=== PATIENT | female | born 1975 | race Caucasian/White ===

== ENCOUNTER 2016-07-31 01:37 | Emergency (ER) | payer OTHER ==
[2016-07-31 01:48] VITALS: TEMP 97.9
[2016-07-31] MEDS ORDERED: HYDROmorphone 1 MG/ML 1 ML SYRINGE IM STA (01:54)
--- NOTE | 2016-07-31 02:03 | ED ---
Lower Extremity Injury HPI - General Chief Complaint: Extremity Injury, Lower Stated Complaint: Ankle injury Time Seen by Provider: 07/31/16 01:52 Source: patient, RN notes reviewed Mode of arrival: wheelchair Limitations: no limitations - History of Present Illness Initial Comments: 41-year-old female presents emergency Department chief complaint right ankle and leg pain. Patient states that she stepped out of her truck states that she slipped on ice. Patient has had severe right lower leg pain. This happened approximately one hour ago. Patient denies any other muscle skeletal injury and denies head injury, and denies LOC. Patient states that she is not taking anything for the pain. She states that she cannot tolerate the pain. Denies any foot pain. Denies any paresthesias. - Related Data Previous Rx's Medication Instructions Recorded HYDROcodone/APAP 7.5-325MG [Fletcher 1 tab PO Q6HR PRN #20 tab 07/31/16 7.5-325] Allergies Allergy/AdvReac Type Severity Reaction Status Date / Time No Known Allergies Allergy Verified 07/31/16 01:48 Review of Systems ROS Statement: Those systems with pertinent positive or pertinent negative responses have been documented in the HPI. ROS Other: All systems not noted in ROS Statement are negative. Past Medical History Past Medical History: No Reported History History of Any Multi-Drug Resistant Organisms: None Reported Past Surgical History: Tubal Ligation Past Psychological History: No Psychological Hx Reported Smoking Status: Current every day smoker Past Alcohol Use History: Occasional Past Drug Use History: None Reported General Exam General appearance: alert, in no apparent distress Respiratory exam: Present: normal lung sounds bilaterally. Absent: respiratory distress, wheezes, rales, rhonchi, stridor Cardiovascular Exam: Present: regular rate, normal rhythm, normal heart sounds. Absent: systolic murmur, diastolic murmur, rubs, gallop, clicks Extremities exam: Present: other (Right leg there is swelling noted in the distal third of the tib-fib region,, swelling noted to the right ankle with severe tenderness to the medial and lateral malleolus there is no foot tenderness) Back exam: Present: full ROM. Absent: tenderness Skin exam: Present: warm, dry, intact, normal color. Absent: rash Course Vital Signs 07/31/16 01:44 Temperature 97.9 F Pulse Rate 86 Respiratory 18 Rate Blood Pressure 112/64 O2 Sat by Pulse 98 Oximetry Procedures - Orthopedic Splinting/Casting Injury #1 Side: right Lower Extremity Injury Location: lower leg, ankle Lower Extremity Immobilizer: posterior splint (Short leg neurovascular intact before and after this procedure with sugar tong splinting) Other Orthopedic Equipment: crutches Disposition Clinical Impression: Right fibular fracture Disposition: HOME SELF-CARE Condition: Stable Instructions: Leg Fracture (ED) Additional Instructions: Please return to the Emergency Department if symptoms worsen or any other concerns. Prescriptions: HYDROcodone/APAP 7.5-325MG [Fletcher 7.5-325] 1 tab PO Q6HR PRN #20 tab PRN Reason: Pain Referrals: Lelsie Haji MD [Primary Care Provider] - 1-2 days Jake Thomas MD [Medical Doctor] - 1-2 days Time of Disposition: 02:48
--- NOTE | 2016-07-31 02:28 | XR ---
EXAMINATION TYPE: XR tibia fibula RT DATE OF EXAM: 07/31/2016 2:06 AM COMPARISON: NONE HISTORY: Leg pain after fall TECHNIQUE: 2 views FINDINGS: There is a nondisplaced oblique fracture of the distal fibula. The tibia appears intact. IMPRESSION: Nondisplaced spiral fracture of the distal fibula.
--- NOTE | 2016-07-31 02:30 | XR ---
EXAMINATION TYPE: XR ankle complete RT DATE OF EXAM: 07/31/2016 2:05 AM COMPARISON: NONE HISTORY: Ankle pain TECHNIQUE: 3 views FINDINGS: There is a nondisplaced spiral fracture of the distal fibula. Ankle mortise is not widened. There is soft tissue swelling. There is no dislocation. There is a small plantar calcaneal spur. IMPRESSION: Spiral fracture distal fibula with no displacement.
[2016-07-31] MEDS ORDERED: HYDROcodone/APAP 5-325MG 1 EACH TAB PO STA (02:59)
[2016-07-31 03:18] VITALS: BP 115/56; PULSE 101; RESP 20
== END 2016-07-31 03:18 | disposition home or self-care (01) ==
LOC: EC 01:37
DX: S82.491A Other fracture of shaft of right fibula, initial encounter for closed fracture (principal); W00.2XXA Other fall from one level to another due to ice and snow, initial encounter; F17.200 Nicotine dependence, unspecified, uncomplicated
CPT/HCPCS: 99283; 96372; 29515; 73590; 73610; J1170

== ENCOUNTER → 2016-08-01 | Outpatient (CLI) | payer OTHER ==
[2016-08-01 14:00] LABS: Appearance,Urine Cloudy (Clear); Bacteria,Urine Rare /hpf; Bilirubin,Urine Negative (Negative); Glucose,Urine (UA) Negative (Negative); Ketones,Urine Negative (Negative); Leukocyte Esterase,Urine Trace (Negative); Mucus,Urine Rare /hpf; Nitrite,Urine Negative (Negative); PH, Urine 5.5 (5.0-8.0); Particle Count 6174; Protein,Urine Negative (Negative); RBC,Urine 1 /hpf (0-5); Specific Gravity,Urine 1.014 (1.001-1.035); Squamous Epithelial Cell,Urine 12 /hpf (0-4); UA Billing (MACRO vs. MICRO) MICRO; Urobilinogen,Urine <2.0 mg/dL (<2.0); WBC,Urine 2 /hpf (0-5)
[2016-08-01 14:01] LABS: Basophils # (A) 0.1 k/uL (0-0.2); Basophils % (A) 1 %; CH 32.9; CHCM 34.9; Eosinophils # (A) 0.1 k/uL (0-0.7); Eosinophils % (A) 1 %; HCT 44.8 % (34.0-46.0); HDW 2.55; HGB 15.2 gm/dL (11.4-16.0); Luc # (Auto) 0.13; Luc % (Auto) 1; Lymphocytes % (A) 15 %; MCHC 33.8 g/dL (31.0-37.0); MCV 94.7 fL (80.0-100.0); Mean Platelet Volume 8.3; Monocytes # (A) 0.5 k/uL (0-1.0); Monocytes % (A) 4 %; Neutrophils # (A) 10.6 k/uL (1.3-7.7); Neutrophils % (A) 79 %; RBC 4.74 m/uL (3.80-5.40); RDW 12.4 % (11.5-15.5); WBC 13.4 k/uL (3.8-10.6); WBC (Perox) 13.47
[2016-08-01 14:05] LABS: Partial Thromboplastin Time 25.7 sec (22.0-30.0); Prothrombin Time 9.8 sec (9.0-12.0)
[2016-08-01 14:19] LABS: Anion Gap 11 mmol/L; Blood Urea Nitrogen 15 mg/dL (7-17); Calcium 9.5 mg/dL (8.4-10.2); Carbon Dioxide 23 mmol/L (22-30); Chloride 104 mmol/L (98-107); Glucose 87 mg/dL (74-99); Non-African American GFR(MDRD) >60 (>60 ml/min/1.73 sqM); Potassium 4.5 mmol/L (3.5-5.1); Sodium 138 mmol/L (137-145)
== END | disposition home or self-care (01) ==
LOC: LABPAT 13:11
PROVIDERS: ATTEND Orthopaedic Surgery Orthopaedic Surgery of the Spine
DX: Z01.818 Encounter for other preprocedural examination (principal); Z01.810 Encounter for preprocedural cardiovascular examination
CPT/HCPCS: 80048; 81001; 85025; 85610; 85730

== ENCOUNTER 2016-08-03 07:09 | Day surgery (SDC) | payer OTHER ==
[2016-08-02 08:44] VITALS: BMI 22.9
[~2016-08-03 07:09] MED LIST: BACITRACIN 50,000 UNIT, POLYMYXIN B 500,000 UNIT in SODIUM CHLORIDE 0.9% IRRIGATIO 1,00... IRRIGATION ONE; DEXAMETHASONE SOD PHOSPHATE 10 MG/ML 1 ML VIAL IV ONE; HYDROmorphone 1 MG/ML 1 ML SYRINGE IVP PRN; LACTATED RINGERS 1,000 ML IV SCH; LIDOCAINE 1% 20 ML VIAL (10MG/ML) FOR IV START INTRADERMA PRN; SCOPOLAMINE 1.5MG/72HR PATCH TRANSDERM ONE; ceFAZolin 2 GM in SODIUM CHLORIDE 0.9% 100 ML IVPB ONE
[2016-08-03] MEDS ORDERED: ONDANSETRON 4 MG/2 ML VIAL IVP ONE (07:33)
[2016-08-03] MEDS ORDERED: HYDROmorphone (PF) 1 MG/ML ONE (08:28)
[2016-08-03] MEDS ORDERED: fentaNYL (PF) 50 MCG/ML 2 ML AMP ONE (08:28)
[2016-08-03] MEDS ORDERED: MIDAZOLAM 2 MG/2 ML VIAL ONE (08:28)
[2016-08-03] MEDS ORDERED: SUCCINYLCHOLINE CHLORIDE 100 MG/5 ML SYR IV ONE (08:28)
[2016-08-03] MEDS ORDERED: PROPOFOL 10 MG/ML 20 ML VIAL IV ONE (08:28)
[2016-08-03] MEDS ORDERED: LIDOCAINE 1% INJ 10MG/ML (20 ML MDV) ONE (08:28)
[2016-08-03] MEDS ORDERED: BUPIVACAINE (PF) 0.25% 30 ML VIAL SQ ONE ×2 (09:22→09:35)
--- NOTE | 2016-08-03 09:38 | FL ---
EXAMINATION TYPE: FL guidance operating room DATE OF EXAM: 08/03/2016 9:34 AM COMPARISON: NONE HISTORY: Right ankle fracture Fluoroscopy support supplied to the referring clinician. See dictated report from orthopedic surgery , 13 seconds fluoroscopy time supplied, four intraoperative C-arm images document the procedure
--- NOTE | 2016-08-03 09:39 | XR ---
Limited right ankle HISTORY: Fracture Intraoperative C-arm images document the procedure
[2016-08-03 09:51] VITALS: TEMP 97.6
[2016-08-03] MEDS ORDERED: HYDROcodone/APAP 5-325MG 1 EACH TAB PO PRN ×2 (09:51)
[2016-08-03] MEDS ORDERED: HYDROcodone/APAP 7.5-325MG 1 EACH TAB PO PRN (09:54)
[2016-08-03 10:01] VITALS: RESP 16
--- NOTE | 2016-08-03 10:03 | P.OP ---
Date of Procedure: 08/03/16 Preoperative Diagnosis: Right ankle fracture with comminuted fracture at distal fibula status post fall , acute traumatic Postoperative Diagnosis: Same Anesthesia: GETA Pathology: none sent Condition: stable Disposition: PACU Description of Procedure: BRIEF OPERATIVE NOTE Preoperative Diagnosis: Right distal fibula fracture, comminuted and displaced, acute traumatic status post fall Postoperative Diagnosis: Same Procedure: Open reduction internal fixation of right distal fibula fracture Use of fluoroscopic guidance Surgeon: Dr. Brock Analog Design Engineer: Keshav Herring is present throughout the entire the case persistence during positioning, dissection, exposure, visualization, and all crucial elements of the case as well as closure. Anesthesia: General anesthesia Estimated blood loss: Less than 10 mL Tourniquet time: Approximately 40 minutes Specimen: None Complications: None apparent Components implanted: Synthes small frag one third semitubular plate with 7 screws with comminution of 3.5 cortical and 40 cancellus screws Disposition: To recovery room in good stable condition. OPERATIVE INDICATIONS The patient had an acute injury 2 days ago when she slipped and fell on the ice. She had immediate pain and swelling in her right ankle. She had not had any pain or issues prior to her fall. She was evaluated and found have a comminuted distal fibula fracture with accompanying medial sided pain. There is no evidence of fracture at the medial malleolus but there was evidence of deltoid ligament injury. With the comminution and the medial and lateral pain involved I felt that her best chance of healing would be to pursue open reduction internal fixation of distal fibula. I discussed the risk of occasions alternatives and benefits of surgery in relation to her injury. I discussed the risk of bleeding risk and infection risk and need for further surgery risk of decreased loss of motion loss function malunion nonunion hardware failure nerve damage as well as, occasions with surgery were explained. I answered her questions best my ability and she elected proceed with surgical intervention. OPERATIVE SUMMARY After discussing all the risks, patient alternatives and benefits at length, the patient elected to proceed with surgical intervention, signed informed consent, and presented for their procedure. The patient was seen and examined in the preoperative holding area and the surgical site was marked. The patient was given antibiotics and brought to the operating room. The patient was sedated and intubated by anesthesia in standard fashion. The patient was positioned on to the operating room table in a supine position with a pad under her right hip. We were careful to pad any bony prominences and pressure points. We were careful to maintain the patient's cervical spine and good neutral alignment and position throughout. We used C-arm machines to establish union fluoroscopic guidance in AP and lateral positions. We were able to localize the fractures appropriately. The patient was prepped and draped in a normal standard fashion. An appropriate timeout and keystone protocol performed. We were able to proceed with the surgery. The local wound area was infiltrated with local anesthetic. An incision was made over the lateral aspect of the ankle and I dissected down to the distal fibula appropriately. The fracture was obvious and I was able to mobilize some of the fragments and elevated some of the periosteum leaving as much is intact as possible. I performed a gentle reduction techniques in order to get the fractures well aligned and use of bone clamp to get good provisional fixation. I was able to get good near-anatomic position. This was confirmed with C-arm guidance. I was then able to measure and position a one third semitubular 7 hole plate and contoured appropriately over the distal fibula and over the fracture site proximally and distally. I establish an interfragmentary screw going from anterior to posterior across fracture site and good alignment and position with good bony fixation. As able to remove the bone clamp in place the plate laterally and placed cortical screws proximally and cancellous screws distally to get excellent fixation at a near anatomic position. This was confirmed with C-arm guidance. Significant. I performed medial and lateral varus and valgus stress at the ankle after fixation was performed and there is no evidence of any widening or displacement of the syndesmosis or the ankle mortise. I do not feel we needed any further fixation. We were able to proceed with closure. Deep layers were closed with 2-0 Vicryl subcu tissues closed 2-0 Vicryl and skin was closed with 4-0 nylon. The wound was cleaned and dried and dressed with the appropriate dressing. I placed a sugar tong and posterior mold well-padded well molded splint at the right lower leg. The drapes were broken down. The patient was gently rolled back onto their hospital bed being careful to maintain their cervical spine and good neutral alignment and position. They were woken up by anesthesia, extubated, and brought to the recovery room in good stable condition. The patient will be able to be discharged from the hospital after appropriate observation due to and for appropriate postoperative care, medical management and monitoring. We will continue to follow them closely about the postoperative course. a plan see her back in the office in approximately 1 week' s time or sooner if she is having problems.
[2016-08-03] MEDS ORDERED: HYDROcodone/APAP 7.5-325MG 1 EACH TAB PO ONE (11:06)
[2016-08-03 12:08] VITALS: BP 118/74; PULSE 75
[2016-08-03] MEDS ORDERED: ceFAZolin 2 GM in SODIUM CHLORIDE 0.9% 100 ML IVPB SCH (16:00)
[2016-08-03] MEDS ORDERED: valACYclovir 500 MG TAB PO SCH (21:00)
[2016-08-03] MEDS ORDERED: PROPRANOLOL LA 80 MG CAP.SA.24H PO SCH (21:00)
[2016-08-04] MEDS ORDERED: ATORVASTATIN 80 MG TAB PO SCH (09:00)
== END 2016-08-03 12:14 | disposition home or self-care (01) ==
LOC: OR 07:09 → EDSTATUS 08:30 → OR 12:14
PROVIDERS: ATTEND Orthopaedic Surgery Orthopaedic Surgery of the Spine
DX: S82.831A Other fracture of upper and lower end of right fibula, initial encounter for closed fracture (principal); W00.0XXA Fall on same level due to ice and snow, initial encounter; G43.909 Migraine, unspecified, not intractable, without status migrainosus; Z79.891 Long term (current) use of opiate analgesic; Z79.899 Other long term (current) drug therapy; F17.200 Nicotine dependence, unspecified, uncomplicated
CPT/HCPCS: 81025; 73600; 27792; C1713; J2250; J1100; J0690; J2405; J2001; J3010; J1170; J0330; J2704

== ENCOUNTER → 2017-08-17 | Outpatient (CLI) | payer OTHER ==
[2017-08-17 10:16] LABS: Appearance,Urine Cloudy (Clear); Bilirubin,Urine Negative (Negative); Blood,Urine Negative (Negative); Color,Urine Yellow; Glucose,Urine (UA) Negative (Negative); Ketones,Urine Negative (Negative); Leukocyte Esterase,Urine Negative (Negative); Mucus,Urine Rare /hpf; Nitrite,Urine Negative (Negative); PH, Urine 6.5 (5.0-8.0); Protein,Urine Negative (Negative); Specific Gravity,Urine 1.014 (1.001-1.035); Squamous Epithelial Cell,Urine 14 /hpf (0-4); Urobilinogen,Urine <2.0 mg/dL (<2.0)
[2017-08-17 10:42] LABS: Basophils # (A) 0.1 k/uL (0-0.2); Basophils % (A) 1 %; Eosinophils # (A) 0.1 k/uL (0-0.7); Eosinophils % (A) 1 %; HCT 45.6 % (34.0-46.0); HGB 15.5 gm/dL (11.4-16.0); Lymphocytes # (A) 2.4 k/uL (1.0-4.8); Lymphocytes % (A) 21 %; MCH 31.6 pg (25.0-35.0); MCHC 33.9 g/dL (31.0-37.0); Mean Platelet Volume 8.3; Monocytes # (A) 0.5 k/uL (0-1.0); Monocytes % (A) 4 %; Neutrophils # (A) 8.3 k/uL (1.3-7.7); Neutrophils % (A) 72 %; Platelet Count 330 k/uL (150-450); RDW 13.4 % (11.5-15.5); WBC 11.6 k/uL (3.8-10.6)
[2017-08-17 10:51] LABS: Anion Gap 9 mmol/L; Blood Urea Nitrogen 11 mg/dL (7-17); Calcium 9.9 mg/dL (8.4-10.2); Carbon Dioxide 30 mmol/L (22-30); Chloride 103 mmol/L (98-107); Glucose 83 mg/dL (74-99); Partial Thromboplastin Time 24.9 sec (22.0-30.0); Potassium 4.7 mmol/L (3.5-5.1); Prothrombin Time 9.7 sec (9.0-12.0); Sodium 142 mmol/L (137-145)
== END | disposition home or self-care (01) ==
LOC: LABPAT 09:46
PROVIDERS: ATTEND Orthopaedic Surgery Orthopaedic Surgery of the Spine
DX: Z01.812 Encounter for preprocedural laboratory examination (principal); T85.698A Other mechanical complication of other specified internal prosthetic devices, implants and grafts, initial encounter
CPT/HCPCS: 36415; 80048; 81001; 85025; 85610; 85730

== ENCOUNTER 2017-08-23 10:23 | Day surgery (SDC) | payer OTHER ==
[~2017-08-23 10:23] MED LIST changes: -HYDROmorphone 1 MG/ML 1 ML SYRINGE IVP PRN; +MIDAZOLAM 2 MG/2 ML VIAL IV PRN; +ONDANSETRON 4 MG/2 ML VIAL IVP ONE; -ceFAZolin 2 GM in SODIUM CHLORIDE 0.9% 100 ML IVPB ONE; +ceFAZolin IN SWFI 2 GM/20 ML SYRINGE IVP ONE
[2017-08-23 11:13] VITALS: RESP 16
[2017-08-23] MEDS ORDERED: LIDOCAINE 1% INJ 10MG/ML (20 ML MDV) ONE (13:20)
[2017-08-23] MEDS ORDERED: SUCCINYLCHOLINE CHLORIDE 100 MG/5 ML SYR IV ONE (13:20)
[2017-08-23] MEDS ORDERED: MIDAZOLAM 2 MG/2 ML VIAL ONE (13:20)
[2017-08-23] MEDS ORDERED: PROPOFOL 10 MG/ML 20 ML VIAL IV ONE (13:20)
[2017-08-23] MEDS ORDERED: fentaNYL (PF) 50 MCG/ML 2 ML AMP ONE (13:20)
[2017-08-23] MEDS ORDERED: HYDROcodone/APAP 5-325MG 1 EACH TAB PO PRN (13:57)
--- NOTE | 2017-08-23 14:12 | P.OP ---
Date of Procedure: 08/23/17 Preoperative Diagnosis: Irritating hardware Right ankle, deep status post open reduction internal fixation of right lateral malleolus fracture History of ankle fracture Postoperative Diagnosis: Same Anesthesia: GETA Pathology: none sent Condition: stable Disposition: PACU Description of Procedure: BRIEF OPERATIVE NOTE Preoperative Diagnosis: Irritating hardware right ankle, deep History of open reduction internal fixation right ankle fracture at the lateral malleolus Postoperative Diagnosis: Same Procedure: Removal of deep hardware right ankle lateral malleolus, fluoroscopic guidance Surgeon: Dr. Brock Custom Seamstress: Keshav Herring is present throughout the entire the case persistence during positioning, dissection, exposure, visualization, and all crucial elements of the case as well as closure. Anesthesia: General anesthesia Estimated blood loss: Less than 10 mL Tourniquet time: Approximately 40 minutes Specimen: None Complications: None apparent Components implanted: We removed a Synthes small fragment plate with screws and an interfragmentary screw Disposition: To recovery room in good stable condition. OPERATIVE INDICATIONS The patient had an acute injury several months ago when she sustained a number displaced lateral malleolus ankle fracture. She underwent open reduction internal fixation of her lateral malleolus and went on to have a good result with her ankle. However she has been having irritation over the hardware itself and some prominence of the screw heads at the lateral aspect of the lateral malleolus which was giving her troubles whenever she is wearing certain shoes and boots. She was sensitive over the hardware. Different treatment options were explained to her ranging from conservative treatment to the possibility of surgical intervention to remove the hardware. I discussed the risk of occasions alternatives and benefits of surgery in relation to her injury. I discussed the risk of bleeding risk and infection risk and need for further surgery risk of decreased loss of motion loss function malunion nonunion hardware failure nerve damage as well as, occasions with surgery were explained. I answered her questions best my ability and she elected proceed with surgical intervention. OPERATIVE SUMMARY After discussing all the risks, patient alternatives and benefits at length, the patient elected to proceed with surgical intervention, signed informed consent, and presented for their procedure. The patient was seen and examined in the preoperative holding area and the surgical site was marked. The patient was given antibiotics and brought to the operating room. The patient was sedated and intubated by anesthesia in standard fashion. The patient was positioned on to the operating room table in a supine position with a pad under her right hip. We were careful to pad any bony prominences and pressure points. We were careful to maintain the patient's cervical spine and good neutral alignment and position throughout. We used C-arm machines to establish union fluoroscopic guidance in AP and lateral positions. We were able to localize the fractures appropriately. The patient was prepped and draped in a normal standard fashion. An appropriate timeout and keystone protocol performed. We were able to proceed with the surgery. The local wound area was infiltrated with local anesthetic. An incision was made over the lateral aspect of the ankle and I dissected down to the distal fibula appropriately utilizing the prior incision and exposing the plate and screws easily. The was noted to be good bony union across the fracture site. The screws were then removed with the appropriate cdl company driver and evaluated and found to be in total. We will to dissect then up over the interfragmentary screw and the screw head was easily identified and the screws removed in total. This was confirmed with C-arm guidance. C-arm guidance was utilized to establish that the hardware had been removed and there is good evidence of solid healing at the fibula. There is no evidence of any crepitance or motion at the fracture site. I was able to stress at the ankle there is no widening of the syndesmosis or of the ankle mortise. The wound was copiously irrigated and suctioned dry. We were able to proceed with closure. Deep layers were closed with 2-0 Vicryl subcu tissues closed 2-0 Vicryl and skin was closed with 4-0 nylon. The wound was cleaned and dried and dressed with the appropriate dressing. I placed a sugar tong and posterior mold well-padded well molded splint at the right lower leg. The drapes were broken down. The patient was gently rolled back onto their hospital bed being careful to maintain their cervical spine and good neutral alignment and position. They were woken up by anesthesia, extubated, and brought to the recovery room in good stable condition. The patient will be able to be discharged from the hospital after appropriate observation due to and for appropriate postoperative care, medical management and monitoring. We will continue to follow them closely about the postoperative course. a plan see her back in the office in approximately 1 week' s time or sooner if she is having problems.
[2017-08-23] MEDS: HYDROmorphone 0.5 MG/0.5 ML SYRINGE IVP PRN ×4 (14:15→14:36)
--- NOTE | 2017-08-23 14:21 | XR ---
EXAMINATION TYPE: XR ankle limited RT DATE OF EXAM: 08/23/2017 COMPARISON: NONE HISTORY: Hardware removal FINDINGS: 2 views demonstrate deformity of the distal fibula. No metallic hardware identified. Previous surgery involving the fibula suspected. IMPRESSION: 1. Intraoperative hardware removal.
--- NOTE | 2017-08-23 14:22 | FL ---
EXAMINATION TYPE: FL guidance operating room DATE OF EXAM: 08/23/2017 HISTORY: Flouroscopy time 4 seconds of fluoroscopy provided. IMPRESSION: 1. Fluoroscopy time.
[2017-08-23 14:27] VITALS: TEMP 97.2
[2017-08-23 15:39] VITALS: BP 103/56; PULSE 72
== END 2017-08-23 15:50 | disposition home or self-care (01) ==
LOC: OR 10:23
PROVIDERS: ATTEND Orthopaedic Surgery Orthopaedic Surgery of the Spine
DX: T84.89XA Other specified complication of internal orthopedic prosthetic devices, implants and grafts, initial encounter (principal); T84.84XA Pain due to internal orthopedic prosthetic devices, implants and grafts, initial encounter; M25.571 Pain in right ankle and joints of right foot; Y83.8 Other surgical procedures as the cause of abnormal reaction of the patient, or of later complication, without mention of misadventure at the time of the procedure; E78.5 Hyperlipidemia, unspecified; I49.9 Cardiac arrhythmia, unspecified; F17.200 Nicotine dependence, unspecified, uncomplicated; Z79.899 Other long term (current) drug therapy; Z48.89 Encounter for other specified surgical aftercare; Z98.51 Tubal ligation status
CPT/HCPCS: 81025; 73600; 20680; J2250; J1100; J2405; J2001; J3010; J0330; J2704; J1170; J0690

== ENCOUNTER → 2017-09-12 | Outpatient (CLI) | payer OTHER ==
[2017-09-12 16:20] LABS: Basophils # (A) 0.1 k/uL (0-0.2); Basophils % (A) 1 %; Eosinophils # (A) 0.1 k/uL (0-0.7); Eosinophils % (A) 1 %; HCT 43.7 % (34.0-46.0); HGB 14.9 gm/dL (11.4-16.0); Lymphocytes # (A) 1.8 k/uL (1.0-4.8); Lymphocytes % (A) 13 %; MCH 31.5 pg (25.0-35.0); MCHC 34.1 g/dL (31.0-37.0); MCV 92.3 fL (80.0-100.0); Mean Platelet Volume 7.8; Monocytes # (A) 0.6 k/uL (0-1.0); Monocytes % (A) 4 %; Neutrophils # (A) 11.7 k/uL (1.3-7.7); Neutrophils % (A) 81 %; Platelet Count 344 k/uL (150-450); RBC 4.74 m/uL (3.80-5.40); RDW 12.2 % (11.5-15.5); WBC 14.4 k/uL (3.8-10.6)
[2017-09-12 16:38] LABS: Anion Gap 12 mmol/L; Blood Urea Nitrogen 10 mg/dL (7-17); C Reactive Protein 21.7 mg/L (<10.0); Carbon Dioxide 27 mmol/L (22-30); Chloride 102 mmol/L (98-107); Glucose 101 mg/dL (74-99); Sodium 141 mmol/L (137-145)
[2017-09-12 17:00] LABS: Erythrocyte Sedimentation Rate 4 mm/hr (0-20)
== END ==
LOC: LABPAT 15:41
PROVIDERS: ATTEND Orthopaedic Surgery Orthopaedic Surgery of the Spine
DX: Z01.818 Encounter for other preprocedural examination (principal); Z01.812 Encounter for preprocedural laboratory examination; T81.4XXA Infection following a procedure, initial encounter
CPT/HCPCS: 36415; 80048; 85025; 85652; 86140

== ENCOUNTER 2017-09-13 13:59 | Inpatient (IN) | payer OTHER ==
[2017-09-13] MEDS ORDERED: LIDOCAINE 1% 20 ML VIAL (10MG/ML) FOR IV START INTRADERMA ONE (14:18)
[2017-09-13] MEDS ORDERED: LACTATED RINGERS 1,000 ML IV ONE ×4 (14:18→18:54)
[2017-09-13] MEDS ORDERED: ONDANSETRON 4 MG/2 ML VIAL IVP ONE (14:29)
[2017-09-13] MEDS ORDERED: DEXAMETHASONE SOD PHOS (MDV) 100 MG/10 ML VIAL IVP ONE (14:30)
[2017-09-13] MEDS ORDERED: PROPOFOL 10 MG/ML 20 ML VIAL IV ONE (17:39)
[2017-09-13] MEDS ORDERED: MIDAZOLAM 2 MG/2 ML VIAL ONE (17:39)
[2017-09-13] MEDS ORDERED: LIDOCAINE 1% INJ 10MG/ML (20 ML MDV) ONE (17:39)
[2017-09-13] MEDS ORDERED: fentaNYL (PF) 50 MCG/ML 2 ML AMP ONE (17:39)
[2017-09-13] MEDS ORDERED: MEPERIDINE 50 MG/ML SYRINGE ONE (17:39)
[2017-09-13] MEDS ORDERED: AMPICILLIN-SULBACTAM 3 GM in SODIUM CHLORIDE 0.9% 100 ML IVPB STA (18:00)
[2017-09-13] MEDS ORDERED: ceFAZolin 1,000 MG in SODIUM CHLORIDE 0.9% 1,000 ML IRRIGATION ONE (18:03)
[2017-09-13] MEDS ORDERED: MORPHINE SULFATE 4 MG/ML SYRINGE IVP PRN (18:20)
[2017-09-13] MEDS ORDERED: DIAZEPAM 5 MG TAB PO PRN (18:20)
[2017-09-13] MEDS ORDERED: BENZOCAINE/MENTHOL LOZENG 1 EACH LOZENGE MUCOUS MEM PRN (18:20)
[2017-09-13] MEDS ORDERED: HYDROcodone/APAP 5-325MG 1 EACH TAB PO PRN ×2 (18:21)
[2017-09-13] MEDS ORDERED: fentaNYL (PF) 50 MCG/ML 2 ML AMP IVP ONE ×2 (18:29→18:38)
[2017-09-13] MEDS ORDERED: SODIUM CHLORIDE 0.9% 1,000 ML IV SCH (18:30)
--- NOTE | 2017-09-13 18:36 | P.OP ---
Date of Procedure: 09/13/17 Preoperative Diagnosis: Infected right lateral malleolus ankle wound status post removal of hardware approximately 3 weeks out Postoperative Diagnosis: Same Procedure(s) Performed: Irrigation and debridement with excisional debridement of denuded tissue at deep right ankle infected wound Anesthesia: MAC Pathology: other (Deep wound cultures 2 sent to micro-biology) Condition: stable Disposition: PACU Description of Procedure: BRIEF OPERATIVE NOTE Preoperative Diagnosis: Infected right ankle lateral malleolus wound, deep 3 weeks status post removal of hardware right lateral malleolus with history of open reduction internal fixation approximately 9 months ago at the right lateral malleolus fracture Postoperative Diagnosis: Same Procedure: Irrigation and debridement was excisional debridement of denuded tissue at that lateral aspect of the lateral malleolus and superficial wound Surgeon: Dr. Brock School Operations Manager: Keshav CARDENAS who is present throughout the entire the case persistence during positioning, dissection, exposure, visualization, and all crucial elements of the case as well as closure. Anesthesia: General anesthesia with [place] Estimated blood loss: Less than 10 mL Specimen: Deep wound culture sent to pathology 2 Complications: None apparent Components implanted: None Disposition: To recovery room in good stable condition. OPERATIVE INDICATIONS The patient has history of right ankle fracture approximately 9-12 months ago which was traumatic. She underwent open reduction internal fixation of right lateral malleolus and went on to good stable healing and had good results. However she developed irritating hardware at the distal aspect of her incision site over her lateral malleolus and screw heads. This was preventing certain shoewear and getting her hypersensitivity at the lateral aspect of her ankle. Different treatment options including possibly removal of the hardware explained to her we discussed the risks involved with removal of the hardware and she elected to proceed with surgery. She underwent removal of hardware approximately 3 weeks ago and the surgery went without incident as per her operative note. However over the past several days she has developed increasing redness and some swelling around her lateral ankle incision site. She had continued pain around her lateral ankle since that time of her removal of the hardware was not having any wound problems but developed some small drainage of central aspect of the wound increased redness and swelling when she was seen at the office yesterday. She had been on oral antibiotics prophylactically but this was not resolving her issues and after discussing different treatment options with her and given the appearance of the lateral ankle we felt that she had an infection at the ankle wound and felt that treating it aggressively with open irrigation debridement and excisional debridement would be the best course of action for her along with antibiotic treatment. We discussed risks, patient alternatives and benefits including but limited to risk of bleeding risk of further infection risk and need for further surgery risk of decreased loss of motion loss function problems with the anesthesia record plan to her. She we answered her questions best for ability and she elected to proceed with surgery. OPERATIVE SUMMARY After discussing all the risks, patient alternatives and benefits at length, the patient elected to proceed with surgical intervention, signed informed consent, and presented for their procedure. The patient was seen and examined in the preoperative holding area and the surgical site was marked. The patient was sedated and intubated by anesthesia with a [place] in standard fashion. She was positioned on a supine position on the operative table being careful padding of bony prominences pressure points. We were careful to pad any bony prominences and pressure points. We were careful to maintain the patient's cervical spine and good neutral alignment and position throughout. Appropriate keystone protocol appropriate timeout was completed. We will to prepped and draped in normal standard fashion and keep her right ankle free. Proper timeout was completed and we will proceed with surgery. A small incision was made at the central aspect of the incision over the lateral malleolus approximately 2 inches in length utilizing the prior incision site. There is a small pocket of purulent material at the central aspect of the incision site which seemed to stay at the level of the soft tissue. The bone is medially below without significant covering and I was able to expand and the bone was exposed as well. There is no evidence of any fracture. The bone was checked under C-arm guidance with live stress testing no evidence of motion or instability. There is no evidence of deep pus in the bone. There is no evidence of any other fluid collection at the deep space. The denuded tissue was excised sharply and with scrapers. The pus pocket was removed at the soft tissue. The wound was copiously irrigated with antibiotic irrigation. There is no further denuded tissue to excise. I felt that we had good bleeding margins and a good healing surface. We were able to proceed with closure. The skin was closed with #3-0 nylon simple interrupted stitches. The wound was cleaned and dried and dressed with the appropriate dressing. The drapes were broken down. The patient was gently rolled back onto their hospital bed being careful to maintain their cervical spine and good neutral alignment and position. They were woken up by anesthesia , extubated, and brought to the recovery room in good stable condition. The patient will be admitted to the hospital for observation and for appropriate postoperative care, IV antibiotics, medical management and monitoring. We will continue to follow them closely about the postoperative course. I think she'll be able to be discharged home tomorrow
[2017-09-13] MEDS ORDERED: HYDROmorphone 0.5 MG/0.5 ML SYRINGE IVP ONE ×2 (18:52→19:00)
[2017-09-13 21:14] VITALS: BMI 23.6
[2017-09-13] MEDS: AMPICILLIN-SULBACTAM 3 GM in SODIUM CHLORIDE 0.9% 100 ML IVPB SCH (23:18)
[2017-09-14 02:19] VITALS: TEMP 97.8
[2017-09-14 06:44] VITALS: BP 110/68; PULSE 72; RESP 14
[2017-09-14] MEDS: AMPICILLIN-SULBACTAM 3 GM in SODIUM CHLORIDE 0.9% 100 ML IVPB SCH (07:30)
--- NOTE | 2017-09-14 08:07 | P.DS ---
Providers Date of admission: 09/13/17 13:59 Attending physician: Christa Brock Primary care physician: Stated None Hospital Course: The patient presented on the day of admission as per her operative note. she had undergone removal of her hardware from her right ankle and this occurred approximately 3 weeks ago. She had initially had open reduction internal fixation for right ankle displaced fracture which had gone on to heal well but was having irritation hardware. She developed some evidence of wound infection and was not improving safely with her initial antibiotics. We decided to treat her aggressively with irrigation and debridement and excisional debridement in the operating room as per her operative note. Physical Exam The incision site is clean dry and intact. There is no erythema no drainage. There is no purulence no evidence of infection. At her right ankle there is less swelling there is no erythema there is no active drainage Abdomen soft and nontender. Chest has good excursion with deep inspiration and expiration. The patient has active and passive range of motion intact at the upper and lower extremities. There is no acute change in neurologic status. She is afebrile Hospital course postoperative day #1 status post irrigation debridement excisional debridement right ankle wound infection. he patient has been making good progress postoperatively. They have continued antibiotics without any signs or symptoms of worsening infection. The site of the right all seems to be improving appropriately. I do not think that she requires any further surgical intervention for the right ankle and she should do well with local wound care and oral antibiotics on outpatient basis. The patient has been able to advance their diet, and is tolerating diet adequately. The pain was initially controlled with IV medications and is now controlled appropriately with oral medications. The patient has been able to increase their mobilization. The patient has progressed appropriately. I think they are in good stable condition for discharge today. They will be sent home with appropriate prescriptions. I answered their questions to the best of my ability in a language that they can understand and they are agreeable with the plan. They will follow up as directed on Monday. Patient Condition at Discharge: Good Plan - Discharge Summary New Discharge Prescriptions: New Amoxic-Pot Clav 875-125Mg [Augmentin 875-125] 1 tab PO Q12HR #20 tablet No Action Propranolol HCl [Inderal LA] 80 mg PO BID Atorvastatin [Lipitor] 80 mg PO DAILY valACYclovir [Valtrex] 500 mg PO BID Diazepam [Valium] 5 mg PO BID PRN #20 tab PRN Reason: Spasms HYDROcodone/APAP 5-325MG [[place] 5-325] 1 tab PO Q8HR PRN #30 tab PRN Reason: Pain Discharge Medication List Atorvastatin [Lipitor] 80 mg PO DAILY 08/02/16 [History] Propranolol HCl [Inderal LA] 80 mg PO BID 08/02/16 [History] valACYclovir [Valtrex] 500 mg PO BID 08/02/16 [History] Diazepam [Valium] 5 mg PO BID PRN #20 tab 08/03/16 [Rx] HYDROcodone/APAP 5-325MG [[place] 5-325] 1 tab PO Q8HR PRN #30 tab 08/23/17 [Rx] Amoxic-Pot Clav 875-125Mg [Augmentin 875-125] 1 tab PO Q12HR #20 tablet [Rx] Follow up Appointment(s)/Referral(s): Christa Brock DO [Doctor of Osteopathic Medicine] - 09/19/17 (With Keshav Menezes at Dr. Brock's office as scheduled) Activity/Diet/Wound Care/Special Instructions: Keep site clean and dry. May remove Jesus wrap after 48 hours, but replace with dry gauze and Jesus wrap for dressing changes May weight-bear to tolerance Elevate right lower extremity Ice to right lower extremity Avoid heavy or rigorous activity Avoid prolonged dependent position of right leg Discharge Disposition: HOME SELF-CARE
--- NOTE | 2017-09-14 14:52 | XR ---
Limited right ankle HISTORY: Ankle infection 2 intraoperative C-arm images document the procedure
--- NOTE | 2017-09-14 15:21 | FL ---
Fluoroscopy HISTORY: Ankle infection 7 seconds fluoroscopy time supplied to the referring clinician. 3 intraoperative C-arm images docume nt the procedure. See dictated report from orthopedic surgery.
== END 2017-09-14 09:30 | disposition home or self-care (01) | DRG 858 ==
LOC: 2ORMAIN 13:59 → 3SUR 18:18
PROVIDERS: ADMIT Orthopaedic Surgery Orthopaedic Surgery of the Spine; ATTEND Orthopaedic Surgery Orthopaedic Surgery of the Spine
PROC: 0JBQ0ZZ Excision of Right Foot Subcutaneous Tissue and Fascia, Open Approach (ICD-10-PCS; principal; 2017-09-13 10:00)
DX: T81.4XXA Infection following a procedure, initial encounter (principal); Z79.891 Long term (current) use of opiate analgesic; Z79.899 Other long term (current) drug therapy; Z87.891 Personal history of nicotine dependence
CPT/HCPCS: 81025; 87070; 87075; 87077; 87186; 87205

== ENCOUNTER → 2019-02-27 | Outpatient (CLI) | payer BC ==
--- NOTE | 2019-02-28 08:12 | US ---
EXAMINATION TYPE: US thyroid st tissue head/neck DATE OF EXAM: 02/27/2019 COMPARISON: 2017 CLINICAL HISTORY: E01.1 THYROMEGALY. GLAND SIZE: Right Lobe: 4.9 x 1.8 x 2.1 cm Overall Parenchyma: heterogenous Left Lobe: 4.9 x 1.7 x 1.8 cm Overall Parenchyma: heterogeneous Isthmus Thickness: 0.3 cm NODULES RIGHT: # of nodules measured on right: 2 1. 0.5 X 0.6 x 0.5 cm solid nodule at the lower pole with poorly defined margins. This nodule is r ound and shows no intranodular vascularity. Prior size: no prior 2. 0.6 X 0.6 x 0.4 cm mixed nodule at the upper pole with well-defined margins. This nodule is wid er than tall and shows no intranodular vascularity. Prior size: no prior LEFT: # of nodules measured on left: 2 1. 0.4 X 0.3 x 0.4 cm mixed nodule at the lower pole with well-defined margins. This nodule is wid er than tall and shows no intranodular vascularity. Prior size: 0.7 x 0.5 x 0.6 cm 2. 0.4 X 0.3 x 0.3 cm mixed nodule at the mid pole with well-defined margins. This nodule is round and shows intranodular vascularity. Prior size: 0.8 x 0.8 x 0.8 cm ISTHMUS: # of nodules measured in the isthmus: 0 Bilateral neck scanned, no evidence of lymphadenopathy. IMPRESSION: The previously seen left thyroid nodules appear smaller in size from the prior of 2017. New right sub centimeter thyroid nodules are seen. Overall findings. A multinodular goiter and continued surveillan ce could be performed for bilateral nodules that are less than 1 cm in size.
== END | disposition home or self-care (01) ==
LOC: RADUSWWP 15:28
PROVIDERS: ATTEND Family Medicine
DX: E04.2 Nontoxic multinodular goiter (principal); Z79.899 Other long term (current) drug therapy
CPT/HCPCS: 76536

== ENCOUNTER → 2019-02-28 | Outpatient (CLI) | payer BC ==
[2019-02-28 10:40] LABS: African American GFR (CKD) 80.5 (60.0-200.0); Albumin 4.2 g/dL (3.80-4.90); Albumin/Globulin Ratio 1.83 (1.60-3.17); Anion Gap 6.6 mmol/L (4.00-12.00); Calcium 9.2 mg/dL (8.7-10.3); Carbon Dioxide 27.4 mmol/L (21.6-31.8); Globulin 2.3 g/dL (1.6-3.3); LDL Cholesterol,Calculated 101.2 mg/dL (0.0-131.0); Potassium 4.5 mmol/L (3.5-5.5); Total Bilirubin 0.4 mg/dL (0.3-1.2); Total Protein 6.5 g/dL (6.2-8.2); VLDL Calculation 69.8 mg/dL (5.00-40.00)
== END | disposition home or self-care (01) ==
LOC: LABWHC1 07:18
PROVIDERS: ATTEND Physician Assistant
DX: E78.2 Mixed hyperlipidemia (principal); E01.0 Iodine-deficiency related diffuse (endemic) goiter; F32.9 Major depressive disorder, single episode, unspecified; F43.29 Adjustment disorder with other symptoms; Z79.899 Other long term (current) drug therapy
CPT/HCPCS: 36415; 80053; 80061; 84432; 84439; 84443; 84480; 86376

== ENCOUNTER 2020-01-30 09:45 | Inpatient (IN) | payer BC ==
[2020-01-30] MEDS ORDERED: KETOROLAC 30 MG/ML 1 ML VIAL IVP STA (10:16)
[2020-01-30] MEDS ORDERED: SODIUM CHLORIDE 0.9% 1,000 ML IV STA ×2 (10:16)
[2020-01-30] MEDS ORDERED: MORPHINE SULFATE 4 MG/ML SYRINGE IV STA (10:16)
[2020-01-30] MEDS ORDERED: ONDANSETRON 4 MG/2 ML VIAL IVP STA (10:16)
--- NOTE | 2020-01-30 10:26 | ED ---
Abdominal Pain HPI - General Chief Complaint: Abdominal Pain Stated Complaint: lower abd pain Time Seen by Provider: 01/30/20 10:02 Source: patient, RN notes reviewed, old records reviewed Mode of arrival: ambulatory Limitations: no limitations - History of Present Illness Initial Comments: Stephanie is a 44-year-old female presents emergency room today with complaints of right lower quadrant abdominal pain. Patient reports the symptoms have been progressing over the past 3 days. She reports some chills last night. She denies any vomiting. He reports some episodes of diarrhea. She reports she has a history of cervical cancer which she had her cervix removed. She still has her ovaries and uterus. - Related Data Home Medications Medication Instructions Recorded Confirmed Atorvastatin [Lipitor] 80 mg PO DAILY 08/02/16 09/13/17 Propranolol HCl [Inderal LA] 80 mg PO BID 08/02/16 09/13/17 valACYclovir [Valtrex] 500 mg PO BID 08/02/16 09/13/17 Previous Rx's Medication Instructions Recorded Diazepam [Valium] 5 mg PO BID PRN #20 tab 08/03/16 HYDROcodone/APAP 5-325MG [[place] 1 tab PO Q8HR PRN #30 tab 08/23/17 5-325] Amoxic-Pot Clav 875-125Mg 1 tab PO Q12HR #20 tablet 09/13/17 [Augmentin 875-125] Allergies Allergy/AdvReac Type Severity Reaction Status Date / Time No Known Allergies Allergy Verified 01/30/20 09:50 Review of Systems ROS Statement: Those systems with pertinent positive or pertinent negative responses have been documented in the HPI. ROS Other: All systems not noted in ROS Statement are negative. Past Medical History Past Medical History: Hyperlipidemia Additional Past Medical History / Comment(s): hx. migraines, palpitations, History of Any Multi-Drug Resistant Organisms: None Reported Past Surgical History: Orthopedic Surgery, Tubal Ligation Additional Past Surgical History / Comment(s): LEEP procedure; Fx R Ankle Past Anesthesia/Blood Transfusion Reactions: No Reported Reaction Past Psychological History: No Psychological Hx Reported Smoking Status: Current every day smoker Past Alcohol Use History: Occasional Past Drug Use History: None Reported - Past Family History Mother Family Medical History: No Reported History General Exam Limitations: no limitations General appearance: alert, in no apparent distress Head exam: Present: atraumatic, normocephalic, normal inspection Eye exam: Present: normal appearance, PERRL, EOMI. Absent: scleral icterus, conjunctival injection, periorbital swelling ENT exam: Present: normal exam, mucous membranes moist Neck exam: Present: normal inspection. Absent: tenderness, meningismus, lymph adenopathy Respiratory exam: Present: normal lung sounds bilaterally. Absent: respiratory distress, wheezes, rales, rhonchi, stridor Cardiovascular Exam: Present: regular rate, normal rhythm, normal heart sounds. Absent: systolic murmur, diastolic murmur, rubs, gallop, clicks GI/Abdominal exam: Present: soft, tenderness (Diffuse tenderness), normal bowel sounds. Absent: distended, guarding, rebound, rigid Extremities exam: Present: normal inspection, full ROM, normal capillary refill. Absent: tenderness, pedal edema, joint swelling, calf tenderness Back exam: Present: normal inspection Neurological exam: Present: alert, oriented X3, CN II-XII intact Course Vital Signs 01/30/20 09:47 Temperature 97.6 F Pulse Rate 80 Respiratory 18 Rate Blood Pressure 116/73 O2 Sat by Pulse 99 Oximetry Medical Decision Making - Medical Decision Making Patient is a 44-year-old female presents emergency department today for evaluation for concern for worsening right-sided abdominal pain. Patient was given IV fluids labwork obtained. She did have diffuse abdominal tenderness and guarding. Patient's labs are reviewed. His white blood cell count of 22,000. Afebrile at this time. Blood cultures obtained. Patient has computed tomography scan. A CT abdomen and pelvis was reviewed and shows evidence of diverticulitis. With white blood cell count elevated and moderate to severe inflammation. Patient's case discussed with Dr. Kinsey. Started the Patient IV Zosyn. - Lab Data Result diagrams: 01/30/20 10:37 01/30/20 10:37 Lab Results 01/30/20 01/30/20 01/30/20 Range/Units 10:37 10:37 10:37 WBC 22.2 H (3.8-10.6) k/uL RBC 5.01 (3.80-5.40) m/uL Hgb 16.7 H (11.4-16.0) gm/dL Hct 48.1 H (34.0-46.0) % MCV 95.9 (80.0-100.0) fL MCH 33.3 (25.0-35.0) pg MCHC 34.8 (31.0-37.0) g/dL RDW 12.7 (11.5-15.5) % Plt Count 287 (150-450) k/uL Neutrophils % 87 % Lymphocytes % 8 % Monocytes % 4 % Eosinophils % 1 % Basophils % 0 % Neutrophils # 19.3 H (1.3-7.7) k/uL Lymphocytes # 1.7 (1.0-4.8) k/uL Monocytes # 0.8 (0-1.0) k/uL Eosinophils # 0.2 (0-0.7) k/uL Basophils # 0.0 (0-0.2) k/uL PT 9.5 (9.0-12.0) sec INR 0.9 (<1.2) APTT 26.0 (22.0-30.0) sec Sodium 136 L (137-145) mmol/L Potassium 4.9 (3.5-5.1) mmol/L Chloride 104 (98-107) mmol/L Carbon Dioxide 23 (22-30) mmol/L Anion Gap 9 mmol/L BUN 16 (7-17) mg/dL Creatinine 0.88 (0.52-1.04) mg/dL Est GFR (CKD-EPI)AfAm >90 (>60 ml/min/1.73 sqM) Est GFR (CKD-EPI)NonAf 81 (>60 ml/min/1.73 sqM) Glucose 90 (74-99) mg/dL Plasma Lactic Acid Juan Antonio (0.7-2.0) mmol/L Calcium 9.4 (8.4-10.2) mg/dL Total Bilirubin 1.0 (0.2-1.3) mg/dL AST 27 (14-36) U/L ALT 18 (4-34) U/L Alkaline Phosphatase 90 (38-126) U/L Total Protein 7.6 (6.3-8.2) g/dL Albumin 4.5 (3.5-5.0) g/dL Amylase 56 (30-110) U/L Lipase 204 (23-300) U/L 16 Range/Units 10:37 WBC (3.8-10.6) k/uL RBC (3.80-5.40) m/uL Hgb (11.4-16.0) gm/dL Hct (34.0-46.0) % MCV (80.0-100.0) fL MCH (25.0-35.0) pg MCHC (31.0-37.0) g/dL RDW (11.5-15.5) % Plt Count (150-450) k/uL Neutrophils % % Lymphocytes % % Monocytes % % Eosinophils % % Basophils % % Neutrophils # (1.3-7.7) k/uL Lymphocytes # (1.0-4.8) k/uL Monocytes # (0-1.0) k/uL Eosinophils # (0-0.7) k/uL Basophils # (0-0.2) k/uL PT (9.0-12.0) sec INR (<1.2) APTT (22.0-30.0) sec Sodium (137-145) mmol/L Potassium (3.5-5.1) mmol/L Chloride (98-107) mmol/L Carbon Dioxide (22-30) mmol/L Anion Gap mmol/L BUN (7-17) mg/dL Creatinine (0.52-1.04) mg/dL Est GFR (CKD-EPI)AfAm (>60 ml/min/1.73 sqM) Est GFR (CKD-EPI)NonAf (>60 ml/min/1.73 sqM) Glucose (74-99) mg/dL Plasma Lactic Acid Juan Antonio 1.0 (0.7-2.0) mmol/L Calcium (8.4-10.2) mg/dL Total Bilirubin (0.2-1.3) mg/dL AST (14-36) U/L ALT (4-34) U/L Alkaline Phosphatase (38-126) U/L Total Protein (6.3-8.2) g/dL Albumin (3.5-5.0) g/dL Amylase (30-110) U/L Lipase (23-300) U/L - Radiology Data Radiology results: report reviewed Generalized colonic diverticulosis greatest in the sigmoid colon. The exam is positive for acute diverticulitis of the distal sigmoid colon with moderate surrounding inflammation. No abscess or free air. Trace cul-de-sac fluid can be reactive to inflammation. Given the degree of wall thickening consider direct visualization following successful treatment to exclude underlying neopla sm. Mild circumferential bladder thickening could represent chronic lateral hypertrophy. Correlate to exclude cystitis. A recent 2.4 severe functional cyst recently. She ruptured follicle the left ovary. Right L5 pars intra- articular defect. Disposition Clinical Impression: Diverticulitis, Sepsis Disposition: ADMITTED IP TO THIS HOSP Condition: Stable Is patient prescribed a controlled substance at d/c from ED?: No Referrals: Jeff Butt MD [Primary Care Provider] - 1-2 days Time of Disposition: 11:46
[2020-01-30 10:59] LABS: Basophils % (A) 0 %; Eosinophils # (A) 0.2 k/uL (0-0.7); Eosinophils % (A) 1 %; HCT 48.1 % (34.0-46.0); HGB 16.7 gm/dL (11.4-16.0); Lymphocytes # (A) 1.7 k/uL (1.0-4.8); Lymphocytes % (A) 8 %; MCH 33.3 pg (25.0-35.0); MCHC 34.8 g/dL (31.0-37.0); MCV 95.9 fL (80.0-100.0); Mean Platelet Volume 8.6; Monocytes # (A) 0.8 k/uL (0-1.0); Monocytes % (A) 4 %; Neutrophils # (A) 19.3 k/uL (1.3-7.7); Neutrophils % (A) 87 %; Platelet Count 287 k/uL (150-450); RBC 5.01 m/uL (3.80-5.40); RDW 12.7 % (11.5-15.5); WBC 22.2 k/uL (3.8-10.6)
[2020-01-30 11:09] LABS: INR 0.9 (<1.2); Prothrombin Time 9.5 sec (9.0-12.0)
[2020-01-30 11:10] LABS: ALT 18 U/L (4-34); AST 27 U/L (14-36); African American GFR (CKD) >90 (>60 ml/min/1.73 sqM); Albumin 4.5 g/dL (3.5-5.0); Alkaline Phosphatase 90 U/L (38-126); Amylase 56 U/L (30-110); Anion Gap 9 mmol/L; Blood Urea Nitrogen 16 mg/dL (7-17); Calcium 9.4 mg/dL (8.4-10.2); Carbon Dioxide 23 mmol/L (22-30); Chloride 104 mmol/L (98-107); Glucose 90 mg/dL (74-99); Non-African American GFR(CKD) 81 (>60 ml/min/1.73 sqM); Potassium 4.9 mmol/L (3.5-5.1); Sodium 136 mmol/L (137-145); Total Protein 7.6 g/dL (6.3-8.2)
--- NOTE | 2020-01-30 11:20 | CT ---
EXAMINATION TYPE: CT abdomen pelvis w con DATE OF EXAM: 01/30/2020 COMPARISON: NONE HISTORY: 44-year-old female with abdominal pain, RLQ, history of cervical cancer TECHNIQUE: Contiguous axial scanning of the abdomen and pelvis following administration of 100 ml Iso mikel 300 IV contrast. Delayed images through the kidneys and coronal/sagittal reconstructions perform ed. CT DLP: 1051.6 mGycm Automated exposure control for dose reduction was used. FINDINGS: Heart normal size without pericardial effusion. Lung bases clear without pleural effusion. Liver mildly enlarged at 18.0 cm without focal lesion. Portal venous system is patent. No biliary margaret charli dilatation. Gallbladder, adrenal glands, kidneys, spleen, and pancreas appear within normal limits. Prominent but nonenlarged 8mm aortocaval lymph node, coronal image 47. No mesenteric or retroperitone al lymphadenopathy otherwise seen. Scattered colonic diverticulosis. Diverticula changes greatest in the colon. Along the distal sigmoid , there is moderate inflammatory wall thickening with surrounding fat stranding and trace cul-de-sac free fluid tracking down. Nonspecific, borderline distended small bowel loop left upper to mid abdomen measuring 3.0 cm probabl y transient. Otherwise, no dilated small bowel or free air. Mild circumferential bladder wall thickening. Uterus is anteverted. Both ovaries are visualized. Greta pherally enhancing cystic structure within the left ovary measuring 2.4 cm. Multiple pelvic phlebolit hs. No pelvic lymphadenopathy. Bones: Mild facet arthropathy lower lumbar spine. Right L5 pars interarticularis defect noted. Trace grade 1 retrolisthesis at L2/L3 and L3-L4 with some bulging discs scattered within the lumbar spine. IMPRESSION: 1. GENERALIZED COLONIC DIVERTICULOSIS, GREATEST IN THE SIGMOID COLON. THE EXAM IS POSITIVE FOR ACUTE DIVERTICULITIS OF THE DISTAL SIGMOID COLON WITH MODERATE SURROUNDING INFLAMMATION. NO ABSCESS OR FREE AIR. TRACE CUL-DE-SAC FREE FLUID COULD BE REACTIVE TO THE INFLAMMATION. 2. GIVEN THE DEGREE OF WALL THICKENING, CONSIDER DIRECT VISUALIZATION FOLLOWING SUCCESSFUL TREATMENT TO EXCLUDE UNDERLYING NEOPLASM. 3. MILD CIRCUMFERENTIAL BLADDER WALL THICKENING COULD REPRESENT CHRONIC LATERAL HYPERTROPHY. CORRELAT E TO EXCLUDE CYSTITIS. 4. A 2.4 CM FUNCTIONAL CYST OR RECENTLY RUPTURED FOLLICLE OF THE LEFT OVARY. 5. RIGHT L5 PARS INTERARTICULARIS DEFECT.
[2020-01-30] MEDS ORDERED: PIPERACILLIN-TAZOBACTAM 3.375 GM in SODIUM CHLORIDE 0.9% 100 ML IVPB STA (11:24)
[2020-01-30 11:27] LABS: Appearance,Urine Clear (Clear); Bilirubin,Urine Negative (Negative); Blood,Urine Negative (Negative); Color,Urine Light Yellow; Glucose,Urine (UA) Negative (Negative); Ketones,Urine Negative (Negative); Leukocyte Esterase,Urine Negative (Negative); Nitrite,Urine Negative (Negative); PH, Urine 5.5 (5.0-8.0); Protein,Urine Negative (Negative); Specific Gravity,Urine 1.006 (1.001-1.035); Urobilinogen,Urine <2.0 mg/dL (<2.0)
[2020-01-30] MEDS ORDERED: ACETAMINOPHEN TAB 325 MG TAB PO PRN (11:46)
[2020-01-30] MEDS ORDERED: IBUPROFEN 400 MG TAB PO PRN (11:46)
[2020-01-30] MEDS ORDERED: ONDANSETRON 4 MG/2 ML VIAL IVP PRN (11:46)
[2020-01-30] MEDS ORDERED: NALOXONE 0.4 MG/ML 1 ML VIAL IV PRN (11:46)
[2020-01-30] MEDS ORDERED: SODIUM CHLORIDE 0.9% 1,000 ML IV ONE (12:44)
[2020-01-30] MEDS: MORPHINE SULFATE 4 MG/ML SYRINGE IV PRN ×2 (14:10→18:20)
--- NOTE | 2020-01-30 14:58 | P.HPIM ---
History of Present Illness Patient is a pleasant 43-year-old female came to [facility] with complains of severe right lower quadrant abdominal pain has been going on for 3 days sharp in nature nonradiating. Patient denied any constipation denied any diarrhea denied any nausea vomiting fevers. Patient appears to have a sigmoid colitis in the CAT scan. Patient was admitted and was started on IV fluids and Zosyn. Review of Systems REVIEW OF SYSTEMS: CONSTITUTIONAL: No fever, no malaise, no fatigue. HEENT: No recent visual problems or hearing problems. Denied any sore throat. CARDIOVASCULAR: No chest pain, orthopnea, PND, no palpitations, no syncope. PULMONARY: No shortness of breath, no cough, no hemoptysis. GASTROINTESTINAL: As mentioned in HPI NEUROLOGICAL: No headaches, no weakness, no numbness. HEMATOLOGICAL: Denies any bleeding or petechiae. GENITOURINARY: Denies any burning micturition, frequency, or urgency. MUSCULOSKELETAL/RHEUMATOLOGICAL: Denies any joint pain, swelling, or any muscle pain. ENDOCRINE: Denies any polyuria or polydipsia. The rest of the 14-point review of systems is negative. Past Medical History Past Medical History: Hyperlipidemia Additional Past Medical History / Comment(s): hx. migraines, palpitations, History of Any Multi-Drug Resistant Organisms: None Reported Past Surgical History: Orthopedic Surgery, Tubal Ligation Additional Past Surgical History / Comment(s): LEEP procedure; Fx R Ankle Past Anesthesia/Blood Transfusion Reactions: No Reported Reaction Past Psychological History: No Psychological Hx Reported Smoking Status: Current every day smoker Past Alcohol Use History: Occasional Past Drug Use History: None Reported - Past Family History Mother Family Medical History: No Reported History Medications and Allergies Home Medications Medication Instructions Recorded Confirmed Type Propranolol HCl [Inderal LA] 80 mg PO BID 08/02/16 01/30/20 History valACYclovir [Valtrex] 500 mg PO DAILY 08/02/16 01/30/20 History Sertraline HCl [Zoloft] 100 mg PO HS 01/30/20 01/30/20 History Allergies Allergy/AdvReac Type Severity Reaction Status Date / Time No Known Allergies Allergy Verified 01/30/20 12:20 Physical Exam Vitals: Vital Signs Temp Pulse Resp BP Pulse Ox 01/30/20 13:00 75 18 113/75 98 01/30/20 12:30 71 18 104/82 96 01/30/20 12:00 82 18 94/58 100 01/30/20 11:30 77 16 117/73 98 01/30/20 09:47 97.6 F 80 18 116/73 99 Intake and Output 01/29/20 01/30/20 01/30/20 22:59 06:59 14:59 Other: Weight 77.111 kg PHYSICAL EXAMINATION: GENERAL: The patient is alert and oriented x3, not in any acute distress. Well developed, well nourished. HEENT: Pupils are round and equally reacting to light. EOMI. No scleral icterus. No conjunctival pallor. Normocephalic, atraumatic. No pharyngeal erythema. No thyromegaly. CARDIOVASCULAR: S1 and S2 present. No murmurs, rubs, or gallops. PULMONARY: Chest is clear to auscultation, no wheezing or crackles. ABDOMEN: Tenderness in the left as was right lower quadrant no rebound or rigidity. MUSCULOSKELETAL: No joint swelling or deformity. EXTREMITIES: No cyanosis, clubbing, or pedal edema. NEUROLOGICAL: Gross neurological examination did not reveal any focal deficits. SKIN: No rashes. Results CBC & Chem 7: 01/30/20 10:37 01/30/20 10:37 Labs: Abnormal Lab Results - Last 24 Hours (Table) 01/30/20 01/30/20 Range/Units 10:37 10:37 WBC 22.2 H (3.8-10.6) k/uL Hgb 16.7 H (11.4-16.0) gm/dL Hct 48.1 H (34.0-46.0) % Neutrophils # 19.3 H (1.3-7.7) k/uL Sodium 136 L (137-145) mmol/L Assessment and Plan Plan: -Sigmoid diverticular colitis: Appears to be severe patient will be continued on Zosyn., IV fluids. -Hyperlipidemia continue statin -History of palpitations patient on propranolol patient blood pressure is not high [place] the propranolol to metoprolol -Nicotine use: Counseling was provided DVT prophylaxis Lovenox and GI prophylaxis Protonix
[2020-01-30] MEDS: SODIUM CHLORIDE 0.9% 1,000 ML IV SCH ×2 (16:17→20:34)
[2020-01-30] MEDS: KETOROLAC 30 MG/ML 1 ML VIAL IVP PRN (17:03)
[2020-01-30] MEDS: METOPROLOL TARTRATE 25 MG TAB PO SCH (20:29)
[2020-01-30] MEDS: PIPERACILLIN-TAZOBACTAM 3.375 GM in SODIUM CHLORIDE 0.9% 100 ML IVPB SCH (20:29)
[2020-01-30] MEDS: SERTRALINE 100 MG TAB PO SCH (20:30)
[2020-01-31] MEDS: PIPERACILLIN-TAZOBACTAM 3.375 GM in SODIUM CHLORIDE 0.9% 100 ML IVPB SCH ×3 (03:05→21:02)
[2020-01-31] MEDS: MORPHINE SULFATE 4 MG/ML SYRINGE IV PRN ×2 (03:05→09:04)
[2020-01-31 07:49] LABS: HCT 44.5 % (34.0-46.0); HGB 14.9 gm/dL (11.4-16.0); MCH 32.8 pg (25.0-35.0); MCHC 33.6 g/dL (31.0-37.0); MCV 97.5 fL (80.0-100.0); Mean Platelet Volume 8.5; Platelet Count 255 k/uL (150-450); RBC 4.56 m/uL (3.80-5.40); RDW 12.8 % (11.5-15.5); WBC 12.9 k/uL (3.8-10.6)
[2020-01-31 08:06] LABS: Calcium 8.6 mg/dL (8.4-10.2); Potassium 4.9 mmol/L (3.5-5.1)
[2020-01-31] MEDS ORDERED: PANTOPRAZOLE 40 MG/10 ML VIAL IV SCH (09:00)
[2020-01-31] MEDS: METOPROLOL TARTRATE 25 MG TAB PO SCH ×2 (09:04→12:01)
[2020-01-31] MEDS: valACYclovir 500 MG TAB PO SCH (09:38)
[2020-01-31] MEDS: SODIUM CHLORIDE 0.9% 1,000 ML IV SCH ×2 (12:31→21:06)
[2020-01-31] MEDS: traMADol 50 MG TAB PO PRN ×2 (12:44→18:08)
[2020-01-31 14:03] VITALS: RESP 18
--- NOTE | 2020-01-31 15:13 | P.PN ---
Subjective Progress Note Date: 01/31/20 Principal diagnosis: Patient is a pleasant 43-year-old female came to [facility] with complains of severe right lower quadrant abdominal pain has been going on for 3 days sharp in nature nonradiating. Patient denied any constipation denied any diarrhea denied any nausea vomiting fevers. Patient appears to have a sigmoid colitis in the CAT scan. Patient was admitted and was started on IV fluids and Zosyn. 01/31/2020 She was seen and evaluated in follow-up and continues to have some abdominal discomfort in the right lower quadrant although states has slightly improved. She is currently maintained on a regular diet and tolerating although having intermittent periods of nausea. Patient is maintained on Zosyn and will continue at this time. Repeat white blood count improved today at 12.9. Current sodium is 138, potassium is 4.9, creatinine is 0.94. Currently patient denies any chest pain, shortness of breath, or palpitations. Patient is afebrile. Objective - Vital Signs Vital signs: Vital Signs Temp 97.8 F 01/31/20 14:01 Pulse 66 01/31/20 14:01 Resp 18 01/31/20 14:01 BP 107/69 01/31/20 14:01 Pulse Ox 98 01/31/20 14:01 Intake & Output 01/30/20 01/31/20 01/31/20 18:59 06:59 18:59 Intake Total 630 1300 Balance 630 1300 Weight 77.111 kg Intake: Intake, IV Titration 630 700 Amount Piperacillin-Tazobactam 3 170 .375 gm In Sodium Chloride 0.9% 100 ml @ 25 mls/hr IVPB Q8H IRA Rx#: [id number] Sodium Chloride 0.9% 1, 460 700 000 ml @ 100 mls/hr IV . Q10H IRA Rx#:[id number] Oral 600 Other: Voiding Method Toilet Toilet # Voids 3 - Exam GENERAL: The patient is alert and oriented x3, not in any acute distress. Well developed, well nourished. HEENT: Pupils are round and equally reacting to light. EOMI. No scleral icterus. No conjunctival pallor. Normocephalic, atraumatic. No pharyngeal erythema. No thyromegaly. CARDIOVASCULAR: S1 and S2 present. No murmurs, rubs, or gallops. PULMONARY: Chest is clear to auscultation, no wheezing or crackles. ABDOMEN: Tenderness noted upon palpation of the right and left lower quadrants with no rebound or rigidity. MUSCULOSKELETAL: No joint swelling or deformity. EXTREMITIES: No cyanosis, clubbing, or pedal edema. NEUROLOGICAL: Gross neurological examination did not reveal any focal deficits. SKIN: No rashes. - Labs CBC & Chem 7: 01/31/20 07:01 01/31/20 07:01 Labs: Abnormal Lab Results - Last 24 Hours (Table) 01/31/20 01/31/20 Range/Units 07: 07: WBC 12.9 H (3.8-10.6) k/uL Chloride 108 H (98-107) mmol/L Microbiology - Last 24 Hours (Table) 01/30/20 11:03 Blood Culture - Preliminary Blood No Growth after 24 hours Assessment and Plan Assessment: -Sigmoid diverticular colitis: Patient is maintained on IV Zosyn and will continue for an additional 24 hours. Patient is tolerating diet but continues to have abdominal discomfort and intermittent nausea -Hyperlipidemia -History of migraine headaches and uses propranolol although currently on hold as blood pressure is low along with heart rate. Will decrease dose on discharge. -Nicotine use: Counseling was provided -DVT prophylaxis Lovenox -GI prophylaxis Protonix Plan: Continue current medications, management, and symptomatic treatment. Discussed with nursing staff about avoiding narcotics if possible and Ultram was added. Increase activity as tolerated. Patient currently maintaining diet and will continue to advance slowly. Discussed with nursing staff and patient about continuing with a soft diet and advancing slowly in the outpatient setting to low fiber. Will repeat a.m. labs. Further recommendations to follow. Anticipate discharge in 24 hours.
[2020-01-31] MEDS: KETOROLAC 30 MG/ML 1 ML VIAL IVP PRN (21:00)
[2020-01-31] MEDS: SERTRALINE 100 MG TAB PO SCH (21:03)
[2020-01-31] MEDS: PROPRANOLOL LA 60 MG CAP.SA.24H PO SCH (21:03)
[2020-02-01] MEDS: traMADol 50 MG TAB PO PRN ×2 (01:10→11:18)
[2020-02-01] MEDS: PIPERACILLIN-TAZOBACTAM 3.375 GM in SODIUM CHLORIDE 0.9% 100 ML IVPB SCH (04:58)
[2020-02-01] MEDS: SODIUM CHLORIDE 0.9% 1,000 ML IV SCH (04:59)
[2020-02-01 06:34] VITALS: BP 112/68; PULSE 61; TEMP 97.4
[2020-02-01 07:20] LABS: Basophils # (A) 0.1 k/uL (0-0.2); Basophils % (A) 1 %; Eosinophils # (A) 0.3 k/uL (0-0.7); Eosinophils % (A) 3 %; HCT 41.2 % (34.0-46.0); HGB 13.7 gm/dL (11.4-16.0); Lymphocytes # (A) 2.1 k/uL (1.0-4.8); Lymphocytes % (A) 21 %; MCH 31.9 pg (25.0-35.0); MCHC 33.2 g/dL (31.0-37.0); MCV 95.9 fL (80.0-100.0); Mean Platelet Volume 8.4; Monocytes # (A) 0.5 k/uL (0-1.0); Monocytes % (A) 5 %; Neutrophils % (A) 70 %; Platelet Count 259 k/uL (150-450); RDW 12.6 % (11.5-15.5)
[2020-02-01] MEDS ORDERED: PANTOPRAZOLE 40 MG TABLET PO SCH (07:30)
[2020-02-01 07:57] LABS: African American GFR (CKD) >90 (>60 ml/min/1.73 sqM); Anion Gap 5 mmol/L; Blood Urea Nitrogen 12 mg/dL (7-17); Calcium 8.6 mg/dL (8.4-10.2); Carbon Dioxide 24 mmol/L (22-30); Chloride 107 mmol/L (98-107); Glucose 85 mg/dL (74-99); Non-African American GFR(CKD) 80 (>60 ml/min/1.73 sqM); Potassium 4.7 mmol/L (3.5-5.1); Sodium 136 mmol/L (137-145)
[2020-02-01] MEDS: valACYclovir 500 MG TAB PO SCH (08:34)
[2020-02-01] MEDS: PROPRANOLOL LA 60 MG CAP.SA.24H PO SCH (08:34)
--- NOTE | 2020-02-01 15:41 | P.DS ---
Providers Date of admission: 01/30/20 11:47 Attending physician: Stephie Rogers Primary care physician: [facility] Course: 43-year-old female came to was divided with complains of severe right lower quadrant abdominal pain has been going on for 3 days sharp in nature nonradiating. Patient denied any constipation denied any diarrhea denied any nausea vomiting fevers. Patient appears to have a sigmoid colitis in the CAT scan. Patient was admitted and was started on IV fluids and Zosyn. 01/31/2020 She was seen and evaluated in follow-up and continues to have some abdominal discomfort in the right lower quadrant although states has slightly improved. She is currently maintained on a regular diet and tolerating although having intermittent periods of nausea. Patient is maintained on Zosyn and will continue at this time. Repeat white blood count improved today at 12.9. Current sodium is 138, potassium is 4.9, creatinine is 0.94. Currently patient denies any chest pain, shortness of breath, or palpitations. Patient is afebril e. 02/01/2020 Patient's pain is intermittently better and the patient will be discharged today. PHYSICAL EXAMINATION: GENERAL: The patient is alert and oriented x3, not in any acute distress. Well developed, well nourished. HEENT: Pupils are round and equally reacting to light. EOMI. No scleral icterus. No conjunctival pallor. Normocephalic, atraumatic. No pharyngeal erythema. No thyromegaly. CARDIOVASCULAR: S1 and S2 present. No murmurs, rubs, or gallops. PULMONARY: Chest is clear to auscultation, no wheezing or crackles. ABDOMEN: Soft, nontender, nondistended, normoactive bowel sounds. No palpable organomegaly. MUSCULOSKELETAL: No joint swelling or deformity. EXTREMITIES: No cyanosis, clubbing, or pedal edema. NEUROLOGICAL: Gross neurological examination did not reveal any focal deficits. SKIN: No rashes. Assessment and Plan Assessment: -Sigmoid diverticular colitis: Patient has significant improvement on Zosyn patient discharged on Augmentin -Hyperlipidemia -History of migraine headaches and uses propranolol H will be continued at a low dose because of low blood pressures -Nicotine use: Counseling was provided Patient Condition at Discharge: Stable Plan - Discharge Summary Discharge Rx Participant: No New Discharge Prescriptions: New Amoxic-Pot Clav 875-125Mg [Augmentin 875-125] 1 tab PO Q12HR 10 Days #20 tab Propranolol LA [Inderal LA] 60 mg PO BID 30 Days #60 cap.sa.24h Pantoprazole [Protonix] 40 mg PO AC-BRKFST 30 Days #30 tablet. traMADol HCl [Ultram] 50 mg PO TID PRN #20 tab PRN Reason: Pain Continue valACYclovir [Valtrex] 500 mg PO DAILY Sertraline HCl [Zoloft] 100 mg PO HS Discontinued Propranolol HCl [Inderal LA] 80 mg PO BID Discharge Medication List valACYclovir [Valtrex] 500 mg PO DAILY 08/02/16 [History] Sertraline HCl [Zoloft] 100 mg PO HS 01/30/20 [History] Amoxic-Pot Clav 875-125Mg [Augmentin 875-125] 1 tab PO Q12HR 10 Days #20 tab 01/31/20 [Rx] Pantoprazole [Protonix] 40 mg PO AC-BRKFST 30 Days #30 tablet. 01/31/20 [Rx] Propranolol LA [Inderal LA] 60 mg PO BID 30 Days #60 cap.sa.24h 01/31/20 [Rx] traMADol HCl [Ultram] 50 mg PO TID PRN #20 tab 01/31/20 [Rx] Follow up Appointment(s)/Referral(s): Jeff Butt MD [Primary Care Provider] - 1-2 days (Office closed at time of discharge please call MondayFeb 02 to set up a follow up appointment) Patient Instructions/Handouts: Propranolol (By mouth), Amoxicillin/Clavulanate Potassium (By mouth), Tramadol (By mouth), Pantoprazole (By mouth), Diverticulitis (DC), Low Fiber Diet (DC), Diverticulitis Diet (DC) Activity/Diet/Wound Care/Special Instructions: Discharge prescriptions on patient's chart Activity Limited until follow-up Continue with soft diet and advance slowly to low fiber diet Continue with antibiotics until finished Follow-up with primary care provider upon discharge Discharge Disposition: HOME SELF-CARE
--- NOTE | 2020-02-03 10:40 | CDI ---
Documentation Clarification Form Date: 02/03/20 From: Trista Nguyen Phone: If you have a question about this query, please contact Gabby Cody, Bankruptcy Assistant at [phone] between 8am and 5pm. Admit Date: 01/30/20 Discharge Date:02/01/20 Patient Name: Stephanie Garg Visit Number: [id number] ATTENTION: The Clinical Documentation Specialists (CDI) and [facility] Coding Staff appreciate your assistance in clarifying documentation. Please respond to the clarification below the line at the bottom and electronically sign. The CDI & [facility] Coding staff will review the response and follow-up if needed. Please note: Queries are made part of the Legal Health Record. If you have any questions, please contact the author of this message via ITS. Dear Dr. Rogers The patient presented with the following: abdominal pain. Clinical impression in the ED note includes diverticulitis and sepsis but sepsis is not documented in subsequent documentation. History/Risk Factors: Diverticular colitis Clinical Indicators: Elevated WBC WBC: 22.2 Lactic acid: 1.0 Blood cultures: No growth Vitals signs on admission: T. 97.6, P. 80, R. 18, BP 116/73 Treatment: ID Consult: Antibiotics: IV Zosyn IV Bolus: 2 liter NS then at 130 mls/hr In your professional opinion, please clarify if these findings signify one of the following conditions, whether the condition is POA, and cause, if known: Condition Sepsis ruled out SIRS, without underlying infectious process Sepsis Severe Sepsis Other, please specify Unable to determine Identify the (suspected) organism No sepsis MTDD
== END 2020-02-01 11:55 | disposition home or self-care (01) | DRG 392 ==
LOC: EC 09:45 → 5NMEDONC 11:47
PROVIDERS: ADMIT Internal Medicine; ATTEND Internal Medicine
DX: K52.89 Other specified noninfective gastroenteritis and colitis (principal); E78.5 Hyperlipidemia, unspecified; F17.200 Nicotine dependence, unspecified, uncomplicated; K57.30 Diverticulosis of large intestine without perforation or abscess without bleeding; G43.909 Migraine, unspecified, not intractable, without status migrainosus; Z85.41 Personal history of malignant neoplasm of cervix uteri; Z79.899 Other long term (current) drug therapy; Z90.710 Acquired absence of both cervix and uterus; Z98.51 Tubal ligation status
CPT/HCPCS: 36415; 74177; 80048; 80053; 81003; 82150; 83605; 83690; 85025; 85027; 85610; 85730; 87040; 96361; 96365; 96375; 96376; 99285

== ENCOUNTER → 2020-03-03 | Outpatient (CLI) | payer BC ==
--- NOTE | 2020-03-03 10:25 | US ---
EXAMINATION TYPE: US abdomen limited DATE OF EXAM: 03/03/2020 COMPARISON: CT January 30, 2020 CLINICAL HISTORY: K57.92 DIVERTICULITIS,A41.9 SEPSIS WITHOUT ACUTE. Enlarged liver in recent CT EXAM MEASUREMENTS: Liver Length: 17.1 cm Gallbladder Wall: 0.4 cm CBD: 0.2 cm Right Kidney: 10.4 x 5.0 x 4.7 cm Pancreas: visualized portions wnl, tail limited by overlying midline bowel gas Liver: measures within upper limits of normal, 0.8cm hyperechoic area right lobe Gallbladder: wnl Evidence for sonographic Cruz's sign: no CBD: wnl Right Kidney: wnl Liver is overall heterogeneous and measures upper limits of normal with 8 mm round hyperechoic focus in the anterior hepatic dome that does not have CT correlate favored benign etiology such as hemangio ma. No intrahepatic ductal dilatation. No surrounding ascites. The gallbladder and right kidney withi n normal limits. IMPRESSION: Liver upper limits of normal in size on ultrasound.
--- NOTE | 2020-03-03 10:32 | US ---
EXAMINATION TYPE: US pelvic complete DATE OF EXAM: 03/03/2020 COMPARISON: CT January 30, 2020 CLINICAL HISTORY: K57.92 DIVERTICULITIS,A41.9 SEPSIS WITHOUT ACUTE. Ovarian cyst, history of ovarian and cervical CA, 2, para 2, history of tubal ligation. TECHNIQUE: . Transabdominal sonographic images of the pelvis were acquired. Date of LMP: 2 to 3 weeks ago EXAM MEASUREMENTS: Uterus: 9.2 x 4.2 x 4.9 cm Endometrial Stripe: 0.7 cm Right Ovary: 3.2 x 2.1 x 1.9 cm Left Ovary: 2.6 x 1.1 x 2.4 cm 1. Uterus: anteverted, mildly heterogeneous 2. Endometrium: appears wnl 3. Right Ovary: wnl 4. Left Ovary: wnl 5. Bilateral Adnexa: wnl 6. Posterior cul-de-sac: wnl Slightly heterogeneous anteverted uterus identified. No free fluid. Both ovaries identified without s uspicious ovarian or adnexal mass seen currently. IMPRESSION: Interval resolution of the 2.4 cm functional cyst in the right ovary. No suspicious ovari an or adnexal masses currently.
== END | disposition home or self-care (01) ==
LOC: RADUSWWP 08:08
PROVIDERS: ATTEND Family Medicine
DX: K57.92 Diverticulitis of intestine, part unspecified, without perforation or abscess without bleeding (principal); A41.9 Sepsis, unspecified organism; R19.7 Diarrhea, unspecified; R16.0 Hepatomegaly, not elsewhere classified; N83.201 Unspecified ovarian cyst, right side; Z85.41 Personal history of malignant neoplasm of cervix uteri
CPT/HCPCS: 76705; 76856

== ENCOUNTER 2020-09-08 07:46 | Emergency (ER) | payer BC, OTHER ==
[2020-09-08 08:01] VITALS: RESP 18; TEMP 98.4
[2020-09-08] MEDS ORDERED: ORPHENADRINE 30 MG/ML 2 ML VIAL IVP STA (08:20)
[2020-09-08] MEDS ORDERED: SODIUM CHLORIDE 0.9% 500 ML 500 ML IV STA (08:20)
[2020-09-08] MEDS ORDERED: SODIUM CHLORIDE 0.9% 1,000 ML IV STA (08:20)
[2020-09-08] MEDS ORDERED: KETOROLAC 15 MG/ML 1 ML VIAL IVP STA (08:20)
--- NOTE | 2020-09-08 08:27 | ED ---
Fall HPI - General Chief Complaint: Fall Stated Complaint: fall/neck&arm pain/head injury yesterday Time Seen by Provider: 09/08/20 08:07 Source: patient, family Mode of arrival: wheelchair - History of Present Illness Initial Comments: This is a 45-year-old female with a benign history who states she slipped and fell yesterday getting out of her pickup truck. She states she hit her head on the running board of the truck and also head or neck. She had no loss of consciousness no loss of function to her upper or lower extremity she had severe pain to left side of her neck and some headache. She worked yesterday but this morning he had such severe pain he could not function very well. She denies any loss of consciousness visual changes fevers chills nausea vomiting sweats no focal weakness she states her hurts to move her left upper extremity due to pain he points to the left trapezius area and lateral neck musculature. She does admit to decreased oral intake this morning. No other complaints or modifying factors patient does state the pain is 12/10 in severity right now and mostly sharp and achy. MD Complaint: fall - Related Data Home Medications Medication Instructions Recorded Confirmed valACYclovir [Valtrex] 500 mg PO DAILY 08/02/16 09/08/20 Previous Rx's Medication Instructions Recorded Propranolol LA [Inderal LA] 60 mg PO BID 30 Days #60 cap.sa.24h 01/31/20 HYDROcodone/APAP 5-325MG [[place] 1 tab PO Q6HR PRN 3 Days #12 tab 09/08/20 5-325] Ibuprofen 800 mg PO Q6HR PRN #20 tablet 09/08/20 Orphenadrine [Norflex] 100 mg PO Q12H #7 tablet.er 09/08/20 predniSONE [Deltasone] 20 mg PO BID #10 tab 09/08/20 Allergies Allergy/AdvReac Type Severity Reaction Status Date / Time No Known Allergies Allergy Verified 09/08/20 09:18 Review of Systems ROS Statement: Those systems with pertinent positive or pertinent negative responses have been documented in the HPI. ROS Other: All systems not noted in ROS Statement are negative. Past Medical History Past Medical History: Cancer, Hyperlipidemia Additional Past Medical History / Comment(s): Cervical cancer with surgery, migraines, palpitations, History of Any Multi-Drug Resistant Organisms: None Reported Past Surgical History: Orthopedic Surgery, Tubal Ligation Additional Past Surgical History / Comment(s): LEEP procedure; ORIF R ankle- hardware removed then post op infection with I&D Past Anesthesia/Blood Transfusion Reactions: No Reported Reaction Past Psychological History: No Psychological Hx Reported Smoking Status: Light tobacco smoker - Past Family History Mother Family Medical History: COPD, Coronary Artery Disease (CAD) Additional Family Medical History / Comment(s): Mother had Grave's disease. She is . Father Additional Family Medical History / Comment(s): Diverticular disease, vertigo. General Exam - General Exam Comments Initial Comments: This is a well-developed well-nourished awake alert oriented 3 female she does have a [place] Coma Scale of 15. Limitations: no limitations General appearance: alert, in distress Head exam: Present: atraumatic, normocephalic, normal inspection Eye exam: Present: normal appearance, PERRL, EOMI. Absent: scleral icterus, conjunctival injection, periorbital swelling ENT exam: Present: mucous membranes dry Neck exam: Present: normal inspection, tenderness, other (Page palpation of the left lateral neck musculature no definite spinous process tenderness. There is some evidence of swelling along the lateral musculature extending down into the trapezius.). Absent: meningismus, full ROM, lymphadenopathy Respiratory exam: Present: normal lung sounds bilaterally. Absent: respiratory distress, wheezes, rales, rhonchi, stridor Cardiovascular Exam: Present: regular rate, normal rhythm, normal heart sounds. Absent: systolic murmur, diastolic murmur, rubs, gallop, clicks GI/Abdominal exam: Present: soft, normal bowel sounds. Absent: distended, tenderness, guarding, rebound, rigid Extremities exam: Present: normal inspection, full ROM, normal capillary refill. Absent: tenderness, pedal edema, joint swelling, calf tenderness Back exam: Present: normal inspection Neurological exam: Present: alert, oriented X3, CN II-XII intact Psychiatric exam: Present: normal affect, normal mood Skin exam: Present: warm, dry, intact, normal color. Absent: rash Course Vital Signs 09/08/20 07:56 Temperature 98.4 F Pulse Rate 81 Respiratory 18 Rate Blood Pressure 135/87 O2 Sat by Pulse 100 Oximetry Medical Decision Making - Medical Decision Making I did discuss findings with the patient she will be discharged home on appropriate medication I did recommend massage therapy and she does have a friend performs this. She is a follow-up with her doctor and return when necessary - Radiology Data Radiology results: report reviewed (I did review the imaging and report. No evidence fractures or subluxations. No intracranial findings.), image reviewed Disposition Clinical Impression: Fall, Cervical strain, acute Disposition: HOME SELF-CARE Condition: Good Instructions (If sedation given, give patient instructions): Cervical Strain (ED) Prescriptions: predniSONE [Deltasone] 20 mg PO BID #10 tab Ibuprofen 800 mg PO Q6HR PRN #20 tablet PRN Reason: Pain HYDROcodone/APAP 5-325MG [[place] 5-325] 1 tab PO Q6HR PRN 3 Days #12 tab PRN Reason: Pain Orphenadrine [Norflex] 100 mg PO Q12H #7 tablet.er Is patient prescribed a controlled substance at d/c from ED?: Yes When asked, does pt state using other controlled substances?: No If prescribed controlled substance>3 days was MAPS reviewed?: Prescribed <3 Days If opioid is for acute pain is fill amount 7 days or less?: Yes If Rx opioid, was Start Talking consent form obtained?: Yes Referrals: Jeff Butt MD [Primary Care Provider] - 1-2 days
--- NOTE | 2020-09-08 08:57 | CT ---
EXAMINATION TYPE: CT brain cspine wo con DATE OF EXAM: 09/08/2020 COMPARISON: None HISTORY: Fall, neck pain, trauma CT DLP: 1460.6 mGycm Automated exposure control for dose reduction was used. TECHNIQUE: CT scan of the head and cervical spine are performed without contrast. FINDINGS: There is no acute intracranial hemorrhage, mass effect, or midline shift identified. The ventricles and sulci are within normal limits in size. The globes are intact and the visualized sin uses are clear. There is artifact over the exam. Cervical spine is visualized in its entirety from C1 through upper thoracic levels and demonstrates s atisfactory alignment without evidence of acute fracture or dislocation. 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 There is multilevel spondylosis, loss of disc height C4-5, C5-6 and C6-7. Multilevel foraminal encroachment is noted. Prevertebral soft tissue appears within normal snell its. The C1-C2 articulation is unremarkable. IMPRESSION: 1. There is no acute fracture or dislocation evident in the cervical spine. 2. No acute intracranial hemorrhage, mass effect, or midline shift is seen.
[2020-09-08] MEDS ORDERED: fentaNYL (PF) 50 MCG/ML 2 ML AMP IV STA (09:46)
[2020-09-08] MEDS ORDERED: methylPREDNISolone SOD SUCCI 125 MG/2 ML VIAL IV STA (09:46)
[2020-09-08 10:31] VITALS: BP 130/81; PULSE 74
== END 2020-09-08 10:36 | disposition home or self-care (01) ==
LOC: EC 07:46
DX: S16.1XXA Strain of muscle, fascia and tendon at neck level, initial encounter (principal); S09.90XA Unspecified injury of head, initial encounter; F17.200 Nicotine dependence, unspecified, uncomplicated; Z85.41 Personal history of malignant neoplasm of cervix uteri; W01.198A Fall on same level from slipping, tripping and stumbling with subsequent striking against other object, initial encounter; Y93.89 Activity, other specified
CPT/HCPCS: 72125; 70450; 99284; 96374; 96375 ×3; 96361 ×2; J2360; J2930; J3010; J1885

== ENCOUNTER 2021-01-20 08:41 | Emergency (ER) | payer OTHER ==
[2021-01-20 08:49] VITALS: RESP 18; TEMP 97.9
[2021-01-20 09:16] LABS: Basophils # (A) 0.1 k/uL (0-0.2); Basophils % (A) 0 %; Eosinophils # (A) 0.2 k/uL (0-0.7); Eosinophils % (A) 2 %; HCT 41.5 % (34.0-46.0); HGB 14.8 gm/dL (11.4-16.0); Lymphocytes # (A) 1.9 k/uL (1.0-4.8); Lymphocytes % (A) 13 %; MCHC 35.6 g/dL (31.0-37.0); MCV 92.8 fL (80.0-100.0); Mean Platelet Volume 7.5; Monocytes # (A) 0.6 k/uL (0-1.0); Monocytes % (A) 4 %; Neutrophils # (A) 11.7 k/uL (1.3-7.7); Neutrophils % (A) 80 %; Platelet Count 377 k/uL (150-450); RBC 4.47 m/uL (3.80-5.40); RDW 11.8 % (11.5-15.5); WBC 14.6 k/uL (3.8-10.6)
[2021-01-20] MEDS ORDERED: SODIUM CHLORIDE 0.9% 1,000 ML IV STA (09:16)
[2021-01-20] MEDS ORDERED: MORPHINE SULFATE 4 MG/ML SYRINGE IV STA (09:16)
--- NOTE | 2021-01-20 09:18 | ED ---
General Adult HPI - General Chief complaint: Abdominal Pain Stated complaint: abd pain Time Seen by Provider: 01/20/21 08:49 Source: patient Mode of arrival: ambulatory Limitations: no limitations - History of Present Illness Initial comments: Dictation was produced using [employer] dictation software. please excuse any grammatical, word or spelling errors. Chief Complaint: 45-year-old female presents with severe suprapubic abdominal pa in History of Present Illness: 45-year-old female she states that she has history of diverticulitis. Over the last 10 days she's been having suprapubic abdominal pain. She states that her symptoms remind her of diverticulitis. States that the pain is severe. She tried to manage it at home however her symptoms have not been improving. She complains of some mild chills but denies any other con stitutional symptoms. No urinary symptoms. Does complain of nausea but no vomiting. Patient denies . The ROS documented in this emergency department record has been reviewed and confirmed by me. Those systems with pertinent positive or negative responses have been documented in the HPI. All other systems are other negative and/or noncontributory. PHYSICAL EXAM: General Impression: Alert and oriented x3, acute distress secondary to pain HEENT: Normocephalic atraumatic, extra-ocular movements intact, pupils equal and reactive to light bilaterally, mucous membranes moist. Cardiovascular: Heart regular rate and rhythm Chest: Able to complete full sentences, no retractions, no tachypnea Abdomen: abdomen soft, severe palpatory tenderness to the suprapubic area, non- distended, no organomegaly Musculoskeletal: Pulses present and equal in all extremities, no peripheral edema Motor: no focal deficits noted Neurological: CN II-XII grossly intact, no focal motor or sensory deficits noted Skin: Intact with no visualized rashes Psych: Normal affect and mood ED course: 45-year-old female past medical history of diverticulitis presents with severe lower abdominal pain. Vital Signs upon arrival are within acceptable limits. Computed tomography scan of the abdomen and pelvis shows mild, located sigmoid diverticulitis. Left ovarian cyst measuring 7 cm labs shows mild leukocytosis of 14.6. Rest of CBC, metabolic panel, abdominal labs and urinalysis are all negative. Prescription for antibiotics. Tolerating oral intake at bedside. Patient is well-appearing at bedside. She is confident that she will be able to manage her symptoms at home. Return precautions discussed. - Related Data Home Medications Medication Instructions Recorded Confirmed valACYclovir [Valtrex] 500 mg PO DAILY 08/02/16 09/08/20 Previous Rx's Medication Instructions Recorded Propranolol LA [Inderal LA] 60 mg PO BID 30 Days #60 cap.sa.24h 01/31/20 HYDROcodone/APAP 5-325MG [[place] 1 tab PO Q6HR PRN 3 Days #12 tab 09/08/20 5-325] Ibuprofen 800 mg PO Q6HR PRN #20 tablet 09/08/20 Orphenadrine [Norflex] 100 mg PO Q12H #7 tablet.er 09/08/20 predniSONE [Deltasone] 20 mg PO BID #10 tab 09/08/20 Amoxic-Pot Clav 875-125Mg 1 tab PO Q8H 10 Days #30 tab 01/20/21 [Augmentin 875-125] HYDROcodone/APAP 5-325MG [[place] 1 tab PO Q6HR PRN 3 Days #12 tab 01/20/21 5-325] Allergies Allergy/AdvReac Type Severity Reaction Status Date / Time No Known Allergies Allergy Verified 01/20/21 08:45 Review of Systems ROS Statement: Those systems with pertinent positive or pertinent negative responses have been documented in the HPI. ROS Other: All systems not noted in ROS Statement are negative. Past Medical History Past Medical History: Cancer, Hyperlipidemia Additional Past Medical History / Comment(s): Cervical cancer with surgery, migraines, palpitations, diverticulosis History of Any Multi-Drug Resistant Organisms: None Reported Past Surgical History: Orthopedic Surgery, Tubal Ligation Additional Past Surgical History / Comment(s): LEEP procedure; ORIF R ankle- hardware removed then post op infection with I&D Past Anesthesia/Blood Transfusion Reactions: No Reported Reaction Past Psychological History: No Psychological Hx Reported Smoking Status: Light tobacco smoker Past Alcohol Use History: Occasional Past Drug Use History: None Reported - Past Family History Mother Family Medical History: COPD, Coronary Artery Disease (CAD) Additional Family Medical History / Comment(s): Mother had Grave's disease. She is . Father Additional Family Medical History / Comment(s): Diverticular disease, vertigo. General Exam Limitations: no limitations Course Vital Signs 01/20/21 08:45 Temperature 97.9 F Pulse Rate 74 Respiratory 18 Rate Blood Pressure 113/63 O2 Sat by Pulse 100 Oximetry Medical Decision Making - Lab Data Result diagrams: 01/20/21 09:06 01/20/21 09:06 Lab Results 01/20/21 01/20/21 01/20/21 Range/Units 09:06 09:06 09:09 WBC 14.6 H (3.8-10.6) k/uL RBC 4.47 (3.80-5.40) m/uL Hgb 14.8 (11.4-16.0) gm/dL Hct 41.5 (34.0-46.0) % MCV 92.8 (80.0-100.0) fL MCH 33.0 (25.0-35.0) pg MCHC 35.6 (31.0-37.0) g/dL RDW 11.8 (11.5-15.5) % Plt Count 377 (150-450) k/uL MPV 7.5 Neutrophils % 80 % Lymphocytes % 13 % Monocytes % 4 % Eosinophils % 2 % Basophils % 0 % Neutrophils # 11.7 H (1.3-7.7) k/uL Lymphocytes # 1.9 (1.0-4.8) k/uL Monocytes # 0.6 (0-1.0) k/uL Eosinophils # 0.2 (0-0.7) k/uL Basophils # 0.1 (0-0.2) k/uL Sodium 137 (137-145) mmol/L Potassium 4.1 (3.5-5.1) mmol/L Chloride 106 (98-107) mmol/L Carbon Dioxide 27 (22-30) mmol/L Anion Gap 4 mmol/L BUN 11 (7-17) mg/dL Creatinine 0.82 (0.52-1.04) mg/dL Est GFR (CKD-EPI)AfAm >90 (>60 ml/min/1.73 sqM) Est GFR (CKD-EPI)NonAf 87 (>60 ml/min/1.73 sqM) Glucose 100 H (74-99) mg/dL Calcium 9.4 (8.4-10.2) mg/dL Total Bilirubin 0.2 (0.2-1.3) mg/dL AST 21 (14-36) U/L ALT 12 (4-34) U/L Alkaline Phosphatase 83 (38-126) U/L Total Protein 6.7 (6.3-8.2) g/dL Albumin 4.0 (3.5-5.0) g/dL Lipase 115 (23-300) U/L Urine Color Light Yellow Urine Appearance Clear (Clear) Urine pH 7.0 (5.0-8.0) Ur Specific [place] 1.006 (1.001-1.035) Urine Protein Negative (Negative) Urine Glucose (UA) Negative (Negative) Urine Ketones Negative (Negative) Urine Blood Negative (Negative) Urine Nitrite Negative (Negative) Urine Bilirubin Negative (Negative) Urine Urobilinogen <2.0 (<2.0) mg/dL Ur Leukocyte Esterase Negative (Negative) Disposition Clinical Impression: Diverticulitis Disposition: HOME SELF-CARE Condition: Fair Instructions (If sedation given, give patient instructions): Diverticulitis (ED) Prescriptions: Amoxic-Pot Clav 875-125Mg [Augmentin 875-125] 1 tab PO Q8H 10 Days #30 tab HYDROcodone/APAP 5-325MG [[place] 5-325] 1 tab PO Q6HR PRN 3 Days #12 tab PRN Reason: Severe Pain Is patient prescribed a controlled substance at d/c from ED?: Yes Referrals: Jeff Butt MD [Primary Care Provider] - 1-2 days
[2021-01-20 09:22] LABS: Appearance,Urine Clear (Clear); Bilirubin,Urine Negative (Negative); Blood,Urine Negative (Negative); Color,Urine Light Yellow; Glucose,Urine (UA) Negative (Negative); Ketones,Urine Negative (Negative); Leukocyte Esterase,Urine Negative (Negative); Nitrite,Urine Negative (Negative); Protein,Urine Negative (Negative); Specific Gravity,Urine 1.006 (1.001-1.035); Urobilinogen,Urine <2.0 mg/dL (<2.0)
[2021-01-20 09:35] LABS: ALT 12 U/L (4-34); AST 21 U/L (14-36); African American GFR (CKD) >90 (>60 ml/min/1.73 sqM); Alkaline Phosphatase 83 U/L (38-126); Anion Gap 4 mmol/L; Blood Urea Nitrogen 11 mg/dL (7-17); Calcium 9.4 mg/dL (8.4-10.2); Carbon Dioxide 27 mmol/L (22-30); Chloride 106 mmol/L (98-107); Glucose 100 mg/dL (74-99); Lipase 115 U/L (23-300); Non-African American GFR(CKD) 87 (>60 ml/min/1.73 sqM); Potassium 4.1 mmol/L (3.5-5.1); Sodium 137 mmol/L (137-145); Total Bilirubin 0.2 mg/dL (0.2-1.3); Total Protein 6.7 g/dL (6.3-8.2)
--- NOTE | 2021-01-20 10:01 | CT ---
EXAMINATION TYPE: CT abdomen pelvis w con DATE OF EXAM: 01/20/2021 COMPARISON: 01/30/2020 HISTORY: Diverticulitis CT DLP: 953 mGycm CONTRAST: CT scan of the abdomen and pelvis is performed without Oral Contrast and with IV Contrast, patient in jected with 100 ml mL of Isovue 300. FINDINGS: LUNG BASES-: No visible nodule. No infiltrate. LIVER/GB: No calcified gallstones. No space occupying hepatic lesion. Biliary tree is of normal ca liber. PANCREAS: No inflammation. No distinct mass. SPLEEN: No splenic enlargement. No lesion seen. ADRENALS: No nodule. No thickening. KIDNEYS/BLADDER: No hydronephrosis. No nephrolithiasis. No distinct renal mass. Urinary bladder g rossly unremarkable. BOWEL: Normal appendix. Wall thickening and inflammatory change involving the sigmoid colon compatibl e with acute diverticulitis. No evidence of perforation or abscess. Mild small bowel ileus. No free a ir. GENITAL ORGANS: 2.7 cm cyst left ovary. Uterus and right ovary are unremarkable. LYMPH NODES: No greater than 1cm abdominal or pelvic lymph nodes are appreciated. AORTA: No significant abnormality. OSSEOUS STRUCTURES: No significant abnormality is seen. OTHER: No significant additional abnormality is seen. IMPRESSION: 1. Mild uncomplicated acute sigmoid diverticulitis. 2. Left ovarian cyst.
[2021-01-20 10:20] VITALS: BP 133/78; PULSE 61
== END 2021-01-20 10:20 | disposition home or self-care (01) ==
LOC: EC 08:41
DX: K57.32 Diverticulitis of large intestine without perforation or abscess without bleeding (principal); E78.5 Hyperlipidemia, unspecified; F17.210 Nicotine dependence, cigarettes, uncomplicated; Z85.41 Personal history of malignant neoplasm of cervix uteri
CPT/HCPCS: 36415; 80053; 83690; 85025; 81003; 74177; 99284; 96374; 96361; J2270; Q9967

== ENCOUNTER 2022-06-04 23:30 | Emergency (ER) | payer OTHER ==
[2022-06-04 23:40] VITALS: TEMP 98.4
[2022-06-04] MEDS ORDERED: MORPHINE SULFATE 4 MG/ML SYRINGE IV STA (23:43)
[2022-06-04] MEDS ORDERED: SODIUM CHLORIDE 0.9% 1,000 ML IV STA (23:43)
[2022-06-04] MEDS ORDERED: PANTOPRAZOLE 40 MG/10 ML VIAL IVP STA (23:43)
--- NOTE | 2022-06-05 00:10 | ED ---
General Adult HPI - General Chief complaint: Neuro Symptoms/Deficit Stated complaint: Unresponsive, Altered Mental Time Seen by Provider: 06/04/22 23:38 Source: EMS, RN notes reviewed, old records reviewed Mode of arrival: EMS Limitations: no limitations - History of Present Illness Initial comments: Patient is a 47-year-old female with past medical history remarkable for diverticulitis, diverticulosis, cervical cancer who presents to [facility] complaining of severe abdominal pain. Results he this evening he had a few drinks. Came home and began having severe lower abdominal pain. States it has been somewhat throughout the day today. Also noticed some pain that radiated to her lower back. Also complained of some mild chest pain that is intermittent with radiation to her back and radiated down her left arm which did go numb at some point. States that is currently not bothering her, and is only complaining of the abdominal pain. Patient's found her slumped next to the bed at home and seemed to have possibly been passed out. Patient states she does remember this, and states the pain was so severe shortness on the ground. EMS found her, and she became alert and oriented. She is currently alert and oriented complaining of severe abdominal pain. Denies any history of abdominal aneurysms or dissections. Denies any history of cardiac disease. Denies any other acute complaints at this time. Presents for further evaluation at this time. Denies any dysuria or hematuria. Denies any diarrhea or bloody stool. Denies any emesis. - Related Data Home Medications Medication Instructions Recorded Confirmed valACYclovir HCL [Valtrex] 500 mg PO BID 08/02/16 03/07/22 Previous Rx's Medication Instructions Recorded Propranolol LA [Inderal LA] 60 mg PO BID 30 Days #60 cap.sa.24h 01/31/20 Ciprofloxacin HCl [Cipro] 500 mg PO Q12HR 5 Days #10 tab 06/05/22 HYDROcodone/APAP 5-325MG [[place] 1 tab PO Q6HR PRN 3 Days #12 tab 06/05/22 5-325] metroNIDAZOLE [Flagyl] 500 mg PO TID 5 Days #15 tab 06/05/22 Allergies Allergy/AdvReac Type Severity Reaction Status Date / Time No Known Allergies Allergy Verified 06/04/22 23:43 Review of Systems ROS Statement: Those systems with pertinent positive or pertinent negative responses have been documented in the HPI. Review of Systems: CONST: Denies fever EYES: Denies blurry vision ENT: Denies nasal congestion C/V: Denies Chest pain RESP: Denies shortness of breath GI: Endorses abdominal pain : Denies dysuria SKIN: Denies rash. MSK: Denies joint pain. NEURO: Denies headache ROS Other: All systems not noted in ROS Statement are negative. Past Medical History Past Medical History: Cancer, Hyperlipidemia Additional Past Medical History / Comment(s): Cervical cancer with surgery, migraines, palpitations, diverticulosis, History of Any Multi-Drug Resistant Organisms: None Reported Past Surgical History: Orthopedic Surgery, Tubal Ligation Additional Past Surgical History / Comment(s): LEEP procedure; ORIF R ankle- hardware removed then post op infection with I&D Past Anesthesia/Blood Transfusion Reactions: No Reported Reaction Past Psychological History: No Psychological Hx Reported Smoking Status: Light tobacco smoker - Past Family History Mother Additional Family Medical History / Comment(s): Mother had Grave's disease. She is . Father Family Medical History: Cancer Additional Family Medical History / Comment(s): COLON CANCERDiverticular disease, General Exam - General Exam Comments Initial Comments: General: Appears in moderate distress secondary to pain. HEAD: Normal with no signs of head trauma. EYES: PERRLA, EOMI, conjunctiva normal, no discharge. ENT: Hearing grossly intact, normal oropharynx. RESPIRATORY: Clear breath sounds bilaterally. No wheezes, rales, or rhonchi. C/V: Regular rate and rhythm. S1 and S2 auscultated, no edema, peripheral pulses 2+ and intact throughout ABD: Abdomen soft, nondistended. Tender to palpation left lower quadrant. Mild guarding. No peritoneal signs. No rebound tenderness. EXT: Normal range of motion, no obvious deformity SKIN: No rashes or lesions observed on exposed skin. NEURO: Alert and oriented 4. No focal deficits. GCS of 15. Limitations: no limitations Course Vital Signs 06/04/22 23:36 Temperature 98.4 F Pulse Rate 103 H Respiratory 20 Rate Blood Pressure 134/97 O2 Sat by Pulse 98 Oximetry Medical Decision Making - Medical Decision Making Based on the patient's presentation and physical exam, I'm concerned for acute i ntra-abdominal pathology the patient clearing possible diverticulitis the patient states that the pain does remind her of this. However due to the possible syncopal episode, as well as chest and symptoms of radiation to her back I cannot rule out aortic catastrophe at this time. Therefore we will obtain CT angiogram of the aorta in addition to CT imaging of the abdomen and pelvis. Abdominal and cardiac labs will be obtained. She'll be administered IV fluids as well as analgesia. Vital signs within acceptable limits. She was in agreement this plan. EKG showed no signs of acute ischemia.Patient's laboratory studies are remarkable for leukocytosis of 12.2. Troponin is undetectable. Patient is not . CT imaging of the aorta as well as abdomen and pelvis as interpreted by myself reveals no aortic catastrophe. No evidence of dissection or aneurysm. Patient does appear to have diverticulitis as well as diverticulosis. This is uncomplicated as there is no obvious signs of perforation or abscess. On reevaluation, patient is feeling somewhat improved. I did discuss results with this. I do believe it is safe for her to be discharged home if she she so chooses or weakening admit for pain control. Patient states she would like to try to manage the pain at home as this is a recurrent issue. I believe this is reasonable as she has uncomplicated diverticulitis. She will be given a dose of ciprofloxacin and Flagyl prior to discharge and then also given a prescription. Follow-up with PCP as well as surgery. She was in agreement with this plan. I will provide the patient with a prescription for ciprofloxacin, Flagyl, [place] 5. I instructed the patient to follow up with their PCP in the next 1-3 days. I provided contact information for follow up with Gen. surgery. I explained that the patient should return to the emergency department if they experience any worsening symptoms. Strict return precautions were discussed with the patient. T he patient expressed understanding of these instructions. I answered all questions that the patient had. The patient was discharged home in good condition with their prescriptions and follow up information. - Lab Data Result diagrams: 06/05/22 01:11 06/05/22 01:11 Lab Results 06/05/22 06/05/22 06/05/22 Range/Units 00:55 01:10 01:11 WBC 12.2 H (3.8-10.6) k/uL RBC 4.45 (3.80-5.40) m/uL Hgb 14.8 (11.4-16.0) gm/dL Hct 41.4 (34.0-46.0) % MCV 93.0 (80.0-100.0) fL MCH 33.3 (25.0-35.0) pg MCHC 35.8 (31.0-37.0) g/dL RDW 12.2 (11.5-15.5) % Plt Count 319 (150-450) k/uL MPV 8.4 Neutrophils % 72 % Lymphocytes % 20 % Monocytes % 2 % Eosinophils % 2 % Basophils % 1 % Neutrophils # 8.9 H (1.3-7.7) k/uL Lymphocytes # 2.4 (1.0-4.8) k/uL Monocytes # 0.3 (0-1.0) k/uL Eosinophils # 0.2 (0-0.7) k/uL Basophils # 0.1 (0-0.2) k/uL PT (9.0-12.0) sec INR (<1.2) APTT (22.0-30.0) sec Sodium (137-145) mmol/L Potassium (3.5-5.1) mmol/L Chloride (98-107) mmol/L Carbon Dioxide (22-30) mmol/L Anion Gap mmol/L BUN (7-17) mg/dL Creatinine (0.52-1.04) mg/dL Est GFR (CKD-EPI)AfAm (>60 ml/min/1.73 sqM) Est GFR (CKD-EPI)NonAf (>60 ml/min/1.73 sqM) Glucose (74-99) mg/dL Plasma Lactic Acid Juan Antonio (0.7-2.0) mmol/L Calcium (8.4-10.2) mg/dL Total Bilirubin (0.2-1.3) mg/dL AST (14-36) U/L ALT (4-34) U/L Alkaline Phosphatase (38-126) U/L Troponin I (0.000-0.034) ng/mL Total Protein (6.3-8.2) g/dL Albumin (3.5-5.0) g/dL Amylase (30-110) U/L Lipase (23-300) U/L HCG, Quant mIU/mL Blood Type O Positive Blood Type Confirm O Positive Blood Type Recheck No Previous Record Bld Type Recheck Status CABO Indicated Antibody Screen NEGATIVE Spec Expiration Date 06/08/2022 - 235406/05/22 06/05/22 06/05/22 Range/Units 01:11 01:11 01:11 WBC (3.8-10.6) k/uL RBC (3.80-5.40) m/uL Hgb (11.4-16.0) gm/dL Hct (34.0-46.0) % MCV (80.0-100.0) fL MCH (25.0-35.0) pg MCHC (31.0-37.0) g/dL RDW (11.5-15.5) % Plt Count (150-450) k/uL MPV Neutrophils % % Lymphocytes % % Monocytes % % Eosinophils % % Basophils % % Neutrophils # (1.3-7.7) k/uL Lymphocytes # (1.0-4.8) k/uL Monocytes # (0-1.0) k/uL Eosinophils # (0-0.7) k/uL Basophils # (0-0.2) k/uL PT 10.0 (9.0-12.0) sec INR 0.9 (<1.2) APTT 26.8 (22.0-30.0) sec Sodium 141 (137-145) mmol/L Potassium 4.1 (3.5-5.1) mmol/L Chloride 111 H (98-107) mmol/L Carbon Dioxide 23 (22-30) mmol/L Anion Gap 7 mmol/L BUN 11 (7-17) mg/dL Creatinine 0.89 (0.52-1.04) mg/dL Est GFR (CKD-EPI)AfAm >90 (>60 ml/min/1.73 sqM) Est GFR (CKD-EPI)NonAf 78 (>60 ml/min/1.73 sqM) Glucose 86 (74-99) mg/dL Plasma Lactic Acid Juan Antonio 1.1 (0.7-2.0) mmol/L Calcium 8.1 L (8.4-10.2) mg/dL Total Bilirubin 0.3 (0.2-1.3) mg/dL AST 28 (14-36) U/L ALT 27 (4-34) U/L Alkaline Phosphatase 96 (38-126) U/L Troponin I (0.000-0.034) ng/mL Total Protein 6.7 (6.3-8.2) g/dL Albumin 4.0 (3.5-5.0) g/dL Amylase 46 (30-110) U/L Lipase 243 (23-300) U/L HCG, Quant <2.4 mIU/mL Blood Type Blood Type Confirm Blood Type Recheck Bld Type Recheck Status Antibody Screen Spec Expiration Date 06/05/22 Range/Units 01:11 WBC (3.8-10.6) k/uL RBC (3.80-5.40) m/uL Hgb (11.4-16.0) gm/dL Hct (34.0-46.0) % MCV (80.0-100.0) fL MCH (25.0-35.0) pg MCHC (31.0-37.0) g/dL RDW (11.5-15.5) % Plt Count (150-450) k/uL MPV Neutrophils % % Lymphocytes % % Monocytes % % Eosinophils % % Basophils % % Neutrophils # (1.3-7.7) k/uL Lymphocytes # (1.0-4.8) k/uL Monocytes # (0-1.0) k/uL Eosinophils # (0-0.7) k/uL Basophils # (0-0.2) k/uL PT (9.0-12.0) sec INR (<1.2) APTT (22.0-30.0) sec Sodium (137-145) mmol/L Potassium (3.5-5.1) mmol/L Chloride (98-107) mmol/L Carbon Dioxide (22-30) mmol/L Anion Gap mmol/L BUN (7-17) mg/dL Creatinine (0.52-1.04) mg/dL Est GFR (CKD-EPI)AfAm (>60 ml/min/1.73 sqM) Est GFR (CKD-EPI)NonAf (>60 ml/min/1.73 sqM) Glucose (74-99) mg/dL Plasma Lactic Acid Juan Antonio (0.7-2.0) mmol/L Calcium (8.4-10.2) mg/dL Total Bilirubin (0.2-1.3) mg/dL AST (14-36) U/L ALT (4-34) U/L Alkaline Phosphatase (38-126) U/L Troponin I <0.012 (0.000-0.034) ng/mL Total Protein (6.3-8.2) g/dL Albumin (3.5-5.0) g/dL Amylase (30-110) U/L Lipase (23-300) U/L HCG, Quant mIU/mL Blood Type Blood Type Confirm Blood Type Recheck Bld Type Recheck Status Antibody Screen Spec Expiration Date - EKG Data -: EKG Interpreted by Me EKG Comments: 12-lead Electrocardiogram Interpretation Note EKG was reviewed and interpreted by myself. 12-lead ECG performed at 2344 is interpreted by me as revealing normal sinus rhythm at a rate of 87 beats per minute. [place] is normal. CA interval is 145 ms, QRS duration is 100 ms, QTc is 424 ms.. There were no ST or T wave abnormalities to suggest myocardial ischemia or injury. R wave progression across the precordium was satisfactory. By my interpretation this EKG is non-diagnostic for acute ischemia. No prior EKG for comparison. Disposition Clinical Impression: Diverticulitis Disposition: HOME SELF-CARE Condition: Good Instructions (If sedation given, give patient instructions): Diverticulitis (ED) Prescriptions: Ciprofloxacin HCl [Cipro] 500 mg PO Q12HR 5 Days #10 tab metroNIDAZOLE [Flagyl] 500 mg PO TID 5 Days #15 tab HYDROcodone/APAP 5-325MG [[place] 5-325] 1 tab PO Q6HR PRN 3 Days #12 tab PRN Reason: Pain Is patient prescribed a controlled substance at d/c from ED?: Yes When asked, does pt state using other controlled substances?: No If prescribed controlled substance>3 days was MAPS reviewed?: Prescribed <3 Days If opioid is for acute pain is fill amount 7 days or less?: Yes If Rx opioid, was Start Talking consent form obtained?: Yes Referrals: None,Stated [REFERRING] - 1-2 days Lisa Oconnor MD [Medical Doctor] - 1-2 days Time of Disposition: 02:10
--- NOTE | 2022-06-05 00:50 | CT ---
EXAMINATION TYPE: CT angio thor/abd pel aorta DATE OF EXAM: 06/05/2022 COMPARISON: CT abdomen and pelvis 01/20/2021 HISTORY: CP rad to back, abd pain, syncopal episode and numbness in both arms. also eval for divertic ular dx CT DLP: 1507 mGycm Automated exposure control for dose reduction was used. CONTRAST: Performed with IV Contrast, patient injected with 100 mL of Isovue 370. Images obtained from the thoracic inlet to the floor the pelvis with IV contrast. There are Three-D p ostprocessed images. There is no mediastinal adenopathy. Heart size is normal. No pericardial effusion. No pleural effusio n. There are no hilar masses. Liver spleen stomach pancreas gallbladder appear intact. The bile ducts are not dilated. There is no adrenal mass. Kidneys show satisfactory contrast opacification. There is no hydronephrosi s. Ureters are not dilated. No retroperitoneal adenopathy. Appendix is inferior and appears normal. B ladder distends smoothly. No inguinal hernia. No free fluid in the pelvis. No evidence of a pelvic ma ss. There is some fat stranding around the mid sigmoid colon. There are numerous sigmoid diverticula. No free air. No ascites. The lumbar vertebra and thoracic vertebra have normal alignment. No compression fracture. Sternum is intact. Bony pelvis appears intact. Sacroiliac joints are intact. Hip joints are intact. Thoracic ureter is intact. No aneurysm or dissection. There is arterial flow in the celiac artery and superior mesenteric artery. There is arterial flow in the renal and iliac and femoral arteries. Abdo woody aorta has normal size. No evidence of arterial aneurysm or dissection. No evidence of hemodynam ic stenosis. IMPRESSION: Negative CT angiogram of the chest abdomen pelvis. No evidence of pulmonary embolism. No arterial ane urysm or dissection. There is diverticulitis of the proximal sigmoid colon in a different location than diverticulitis florence dent on old exam. No drainable fluid collection. Extensive colonic diverticulosis. Normal appendix.
[2022-06-05] MEDS ORDERED: MORPHINE SULFATE 4 MG/ML SYRINGE IVP STA (01:18)
[2022-06-05 01:27] LABS: Basophils # (A) 0.1 k/uL (0-0.2); Basophils % (A) 1 %; Eosinophils # (A) 0.2 k/uL (0-0.7); Eosinophils % (A) 2 %; HCT 41.4 % (34.0-46.0); HGB 14.8 gm/dL (11.4-16.0); Lymphocytes # (A) 2.4 k/uL (1.0-4.8); Lymphocytes % (A) 20 %; MCH 33.3 pg (25.0-35.0); MCHC 35.8 g/dL (31.0-37.0); Mean Platelet Volume 8.4; Monocytes # (A) 0.3 k/uL (0-1.0); Monocytes % (A) 2 %; Neutrophils # (A) 8.9 k/uL (1.3-7.7); Neutrophils % (A) 72 %; Platelet Count 319 k/uL (150-450); RBC 4.45 m/uL (3.80-5.40); RDW 12.2 % (11.5-15.5); WBC 12.2 k/uL (3.8-10.6)
[2022-06-05 01:42] LABS: INR 0.9 (<1.2); Partial Thromboplastin Time 26.8 sec (22.0-30.0)
[2022-06-05 01:50] LABS: ALT 27 U/L (4-34); AST 28 U/L (14-36); African American GFR (CKD) >90 (>60 ml/min/1.73 sqM); Alkaline Phosphatase 96 U/L (38-126); Amylase 46 U/L (30-110); Anion Gap 7 mmol/L; Blood Urea Nitrogen 11 mg/dL (7-17); Calcium 8.1 mg/dL (8.4-10.2); Carbon Dioxide 23 mmol/L (22-30); Chloride 111 mmol/L (98-107); Glucose 86 mg/dL (74-99); Lipase 243 U/L (23-300); Non-African American GFR(CKD) 78 (>60 ml/min/1.73 sqM); Potassium 4.1 mmol/L (3.5-5.1); Sodium 141 mmol/L (137-145); Total Bilirubin 0.3 mg/dL (0.2-1.3); Total Protein 6.7 g/dL (6.3-8.2)
[2022-06-05 02:07] LABS: HCG,Quantitative Serum <2.4 mIU/mL
[2022-06-05] MEDS ORDERED: CIPROFLOXACIN HCL 500 MG TAB PO STA (02:29)
[2022-06-05] MEDS ORDERED: metroNIDAZOLE 500 MG TAB PO STA (02:29)
[2022-06-05] MEDS ORDERED: ACET/COD 300 MG/30 MG STARTER PACK 6 TAB BTL PO STA (02:30)
[2022-06-05 02:55] VITALS: BP 127/61; PULSE 83; RESP 16
== END 2022-06-05 02:45 | disposition home or self-care (01) ==
LOC: EC 23:30
DX: K57.32 Diverticulitis of large intestine without perforation or abscess without bleeding (principal); E78.5 Hyperlipidemia, unspecified; F17.200 Nicotine dependence, unspecified, uncomplicated
CPT/HCPCS: 99285 ×2; 96374 ×2; 96375 ×2; 96376 ×2; 96361 ×2; 36415; 93005; 86900; 86901; 80053; 82150; 83605; 83690; 84484; 85025; 85610; 85730; 86850; 84702; 87040; 71275; 74174; J2270 ×2; C9113; Q9967

== ENCOUNTER 2024-03-13 14:42 | Inpatient (IN) | payer OTHER ==
[2024-03-13] MEDS: HYDROmorphone 1 MG/ML 1 ML SYRINGE IVP STA ×3 (15:12→19:32)
[2024-03-13] MEDS: IPRATROPIUM-ALBUTEROL 3 ML NEB INHALATION STA (15:42)
--- NOTE | 2024-03-13 15:44 | ED ---
Abdominal Pain HPI - General Chief Complaint: Abdominal Pain Stated Complaint: Abd pain Time Seen by Provider: 03/13/24 14:44 Source: patient, EMS, RN notes reviewed Mode of arrival: EMS Limitations: no limitations - History of Present Illness Initial Comments: 48-year-old female presents emergency department as a transfer from [facility] complaint of abdominal pain. Patient is found to have diverticulitis with perforation patient was seen [address] showing acute diverticulitis there is concern for perforation and fluid collection in the right lower quadrant. Patient states pain is worsened she reports fevers patient has been taken Augmentin she did receive Zosyn, multiple rounds of pain medication. Patient denies any dysuria denies any chest pain or shortness of breath. Patient states the pain is worse with movement. Review of Systems ROS Statement: Those systems with pertinent positive or pertinent negative responses have been documented in the HPI. ROS Other: All systems not noted in ROS Statement are negative. General Exam Limitations: no limitations General appearance: alert, in no apparent distress Head exam: Present: atraumatic, normocephalic, normal inspection Eye exam: Present: normal appearance, PERRL, EOMI. Absent: scleral icterus, conjunctival injection, periorbital swelling ENT exam: Present: normal exam, normal oropharynx, mucous membranes moist Neck exam: Present: normal inspection, full ROM. Absent: tenderness, meningismus, lymphadenopathy Respiratory exam: Present: normal lung sounds bilaterally. Absent: respiratory distress, wheezes, rales, rhonchi, stridor Cardiovascular Exam: Present: regular rate, normal rhythm, normal heart sounds. Absent: systolic murmur, diastolic murmur, rubs, gallop, clicks GI/Abdominal exam: Present: soft, tenderness, rebound, normal bowel sounds. Absent: distended, guarding, rigid Back exam: Absent: CVA tenderness (R), CVA tenderness (L) Neurological exam: Present: alert, oriented X3 Course Vital Signs 03/13/24 03/13/24 14:44 15:42 Temperature 98.3 F Pulse Rate 82 90 Respiratory 18 18 Rate Blood Pressure 112/74 Medical Decision Making - Medical Decision Making Was pt. sent in by a medical professional or institution (, PA, MANUFACTURING LEAD, urgent care, hospital, or residential...) When possible be specific @ -[facility] Did you speak to anyone other than the patient for history (EMS, parent, family, police, friend...)? What history was obtained from this source @ -No Did you review nursing and triage notes (agree or disagree)? Why? @ -I reviewed and agree with nursing and triage notes Were old charts reviewed (outside hosp., previous admission, EMS record, old EKG, old radiological studies, urgent care reports/EKG's, residential records)? Report findings @ -Reviewed labs, CT from [facility] Differential Diagnosis (chest pain, altered mental status, abdominal pain women, abdominal pain men, vaginal bleeding, weakness, fever, dyspnea, syncope, headache, dizziness, GI bleed, back pain, seizure, CVA, palpatations, mental health, musculoskeletal)? @ -Diverticulitis, intra-abdominal abscess, perforated bowel EKG interpreted by me (3pts min.). @ -None none X-rays interpreted by me (1pt min.). @ -None done CT interpreted by me (1pt min.). @ -None done U/S interpreted by me (1pt. min.). @ -None done What testing was considered but not performed or refused? (CT, X-rays, U/S, labs)? Why? @ -None What meds were considered but not given or refused? Why? @ -None Did you discuss the management of the patient with other professionals (professionals i.e. , PA, MANUFACTURING LEAD, lab, RT, psych nurse, social and political studies professor, load out worker, teacher, residential care officer, case aide)? Give summary @ -Dr. Hagen for admission and CT findings Was smoking cessation discussed for >3mins.? @ -No Was critical care preformed (if so, how long)? @ -No Were there social determinants of health that impacted care today? How? (Homelessness, low income, unemployed, alcoholism, drug addiction, transportation, low edu. Level, literacy, decrease access to med. care, fci, rehab)? @ -No Was there de-escalation of care discussed even if they declined (Discuss DNR or withdrawal of care, Hospice)? DNR status @ -No What co-morbidities impacted this encounter? (DM, HTN, Smoking, COPD, CAD, Cancer, CVA, ARF, Chemo, Hep., AIDS, mental health diagnosis, sleep apnea, morbid obesity)? @ -None Was patient admitted / discharged? Hospital course, mention meds given and route, prescriptions, significant lab abnormalities, going to OR and other pertinent info. @ -Admitted I did discuss case with on-call surgeon recommends repeat CT with oral contrast, pain meds, antiemetics, antibiotics and IV fluids. Undiagnosed new problem with uncertain prognosis? @ -No Drug Therapy requiring intensive monitoring for toxicity (Heparin, Nitro, Insulin, Cardizem)? @ -No Were any procedures done? @ -No Diagnosis/symptom? @ -\Acute diverticulitis with perforation Acute, or Chronic, or Acute on Chronic? @ -Acute Uncomplicated (without systemic symptoms) or Complicated (systemic symptoms)? @ -Uncomplicated Side effects of treatment? @ -No Exacerbation, Progression, or Severe Exacerbation? @ -No Poses a threat to life or bodily function? How? (Chest pain, [place], [place], pneumonia, PE, COPD, DKA, ARF, appy, cholecystitis, CVA, Diverticulitis, Homicidal, Suicidal, threat to staff... and all critical care pts) @ -yes Diverticulitis, surgical risk, sepsis risk Disposition Clinical Impression: Acute diverticulitis, Perforated diverticulum Disposition: ADMITTED IP TO THIS HOSP Condition: Fair Referrals: Nonstaff,Physician [Primary Care Provider] - 1-2 days Time of Disposition: 15:53
[2024-03-13] MEDS ORDERED: NALOXONE 0.4 MG/ML 1 ML VIAL IV PRN (15:49)
[2024-03-13] MEDS ORDERED: IOPAMIDOL CONTRAST (ORAL USE) VIAL PO PRN (15:49)
[2024-03-13] MEDS: SODIUM CHLORIDE 0.9% 2,000 ML IV ONE (17:17)
[2024-03-13 18:12] LABS: Basophils % (A) 0 %; Eosinophils # (A) 0.3 k/uL (0-0.7); Eosinophils % (A) 2 %; HGB 13.4 gm/dL (11.4-16.0); Lymphocytes # (A) 1.3 k/uL (1.0-4.8); Lymphocytes % (A) 8 %; MCH 33.1 pg (25.0-35.0); MCHC 33.5 g/dL (31.0-37.0); MCV 98.8 fL (80.0-100.0); Mean Platelet Volume 7.8; Monocytes # (A) 0.6 k/uL (0-1.0); Monocytes % (A) 3 %; Neutrophils # (A) 14.1 k/uL (1.3-7.7); Neutrophils % (A) 86 %; Platelet Count 370 k/uL (150-450); RBC 4.05 m/uL (3.80-5.40); RDW 12.2 % (11.5-15.5); WBC 16.4 k/uL (3.8-10.6)
[2024-03-13 18:45] LABS: ALT 17 U/L (4-34); AST 39 U/L (14-36); African American GFR (CKD) >90 (>60 ml/min/1.73 sqM); Albumin 3.3 g/dL (3.5-5.0); Alkaline Phosphatase 115 U/L (38-126); Anion Gap 5 mmol/L; Blood Urea Nitrogen 9 mg/dL (7-17); Calcium 8.7 mg/dL (8.4-10.2); Carbon Dioxide 25 mmol/L (22-30); Chloride 105 mmol/L (98-107); Glucose 89 mg/dL (74-99); Non-African American GFR(CKD) >90 (>60 ml/min/1.73 sqM); Potassium 3.7 mmol/L (3.5-5.1); Sodium 135 mmol/L (137-145)
--- NOTE | 2024-03-13 18:49 | CT ---
EXAMINATION TYPE: CT abdomen pelvis wo con DATE OF EXAM: 03/13/2024 COMPARISON: 06/04/2022 INDICATION: Diverticulitis with perforation, abdominal pain DLP: 629+608.7 mGycm, Automated exposure control for dose reduction was used. CONTRAST: 0 mL of Isovue 300. Study performed with Oral Contrast oral contrast imaging was performed. TECHNIQUE: Axial images were obtained from above the diaphragm to the pubic rami in the axial plane a t 5 mm thick sections. Reconstructed images are reviewed on the computer in the coronal plane. FINDINGS: Limited CT sections are obtained the lung bases. The lung bases are clear. CT ABDOMEN: Liver: Normal Spleen: Normal Pancreas: Normal Adrenal glands: The adrenal glands are normal. Gallbladder: Normal Kidneys: No masses are evident. No hydronephrosis is present. No cysts are present. Contrast is ex creted through the kidneys bilaterally. Portions of the ureters visualized are unremarkable. Aorta: Mild Vascular calcification is within the aorta. Inferior vena cava: Normal. CT PELVIS: No free air is evident and pelvis. Multiple fluid-filled loops of bowel are present. Scatt ered diverticuli within the sigmoid colon. There is thickening of the distal sigmoid colon. 2 small a reas of air are present in the right hemipelvis, exam series 201 image 69. This is unclear whether th is is loculated air or within redundant sigmoid colon. No definite abscess formation is identified. Diverticulosis sigmoid colon. There is some mild inflammatory change adjacent compatible with mild di verticulitis. There are loops of bowel which are incompletely distended or lack oral contrast limitin g their evaluation. Appendix: Normal caliber as visualized. Diffuse adjacent inflammatory changes are present. Some mild acute appendicitis is not excluded. However, this is close to the changes of acute diverticulitis pre sent. Urinary bladder: Contrast-filled no filling defects are identified Genitourinary structures: Uterus appears normal. The loculated air may be within the right adnexal re gion. Left adnexal region appears normal Osseous structures: No suspicious lytic or sclerotic lesions. IMPRESSION: 1. There appears to be an area of phlegmon formation in the region of the right adnexa which is alejandra cent to acute diverticulitis the sigmoid colon. There may be some air present within this region. Und erlying abscess is not clearly identified at this time. Free air within the nondependent abdomen and pelvis is not identified. 2. Some mild inflammatory changes are adjacent to a normal caliber appendix. This is near the acute d iverticulitis which may account for this finding
[2024-03-13] MEDS: PIPERACILLIN-TAZOBACTAM 3.375 GM in SODIUM CHLORIDE 0.9% 100 ML IVPB SCH (19:08)
[2024-03-13] MEDS ORDERED: HYDROmorphone 1 MG/ML 1 ML SYRINGE ONE (22:04)
[2024-03-14] MEDS ORDERED: HYDROmorphone 1 MG/ML 1 ML SYRINGE ONE (02:39)
[2024-03-14] MEDS: SODIUM CHLORIDE 0.9% 1,000 ML IV SCH (05:08)
[2024-03-14] MEDS: PIPERACILLIN-TAZOBACTAM 3.375 GM in SODIUM CHLORIDE 0.9% 100 ML IVPB SCH (05:09)
[2024-03-14] MEDS: HYDROmorphone 1 MG/ML 1 ML SYRINGE IVP PRN (06:22)
[2024-03-14] MEDS: ONDANSETRON 4 MG/2 ML VIAL IVP PRN (09:30)
[2024-03-14] MEDS: HYDROmorphone 0.5 MG/0.5 ML SYRINGE IVP PRN (11:21)
--- NOTE | 2024-03-14 12:01 | P.GSHP ---
History of Present Illness H&P Date: 03/14/24 CHIEF COMPLAINT: Abdominal pain HISTORY OF PRESENT ILLNESS: This is a 48-year-old female with a known history of diverticulitis x 3 episodes. Patient was a transfer from [facility] for possible diverticulitis with perforation. Patient reports her abdominal pain started 3 days ago. She reports that her pain is throughout the whole abdomen but more so in the right lower quadrant and across the lower abdomen. She has been having nausea and vomiting. She did have diarrhea. Reports no blood in the stools. She had a repeat CT scan abdomen pelvis here that reported phlegmon formation in the region of the right adnexa which is adjacent to acute diverticulitis of the sigmoid colon. There may be some air present within this region. Underlying abscess is not clearly identified at this time. Free air within the nondependent abdomen and pelvis is not identified. Some mild inflammatory changes are adjacent to the normal caliber appendix. This is near the acute diverticulitis which may account for these findings. Prior abdominal surgeries include tubal ligation and uterine ablation. Patient reports no prior history of colonoscopy. Patient denies being on any blood thinners. Patient seen and examined with Dr. Hagen PAST MEDICAL HISTORY: Diverticulitis, ovarian and uterine cancer, CVA PAST SURGICAL HISTORY: Tubal ligation and uterine ablation MEDICATIONS: See below ALLERGIES: See below SOCIAL HISTORY: No illicit drug use. Marijuana use. Past smoker. REVIEW OF SYSTEMS: CONSTITUTIONAL: Denies fever or chills. HEENT: Denies blurred vision, vision changes, or eye pain. Denies hemoptysis CARDIOVASCULAR: Denies chest pain or pressure. RESPIRATORY: No shortness of breath. GASTROINTESTINAL: See HPI for pertinent findings HEMATOLOGIC: Denies bleeding disorders. GENITOURINARY: Denies any blood in urine or increased urinary frequency. SKIN: Denies pruitis. Denies rash. PHYSICAL EXAM: VITAL SIGNS: Reviewed GENERAL: Well-developed in no acute distress. HEENT: No sclera icterus. Extraocular movements grossly intact. Moist buccal mucosa. Head is atraumatic, normocephalic. No nasal drainage. ABDOMEN: Distended. Severely tender in the right lower quadrant and suprapubic area. Diffuse tenderness noted. NEUROLOGIC: Alert and oriented. Cranial nerves II through XII grossly intact. LABORATORY DATA: WBC 16.4 Hgb 13.4 platelets 370 Sodium 135 potassium 3.7 creatinine 0.60 IMAGING: CT scan abdomen pelvis as stated above ASSESSMENT: 1. Acute sigmoid diverticulitis with perforation PLAN: -Patient scheduled for sigmoid colectomy with possible colostomy today with Dr. Hagen -Keep patient n.p.o. -Continue IV antibiotics -Pain medication adjusted -Continue IV fluids -Continue antiemetics Physician Auto Transmission Specialist note has been reviewed by physician. Signing provider agrees with the documented findings, assessment, and plan of care. Past Medical History Past Medical History: Cancer History of Any Multi-Drug Resistant Organisms: None Reported Past Surgical History: Orthopedic Surgery, Tubal Ligation, Uterine Ablation Past Psychological History: No Psychological Hx Reported Smoking Status: Current some day smoker Past Alcohol Use History: Occasional Past Drug Use History: Marijuana Medications and Allergies Home Medications Medication Instructions Recorded Confirmed Type Amoxic-Pot Clav 875-125Mg 1 tab PO Q12HR 03/13/24 03/13/24 History [Augmentin 875-125] HYDROcodone/APAP 5-325MG [[place] 1 tab PO Q6H PRN 03/13/24 03/13/24 History 5-325] Ibuprofen [Motrin] 600 mg PO Q6H PRN 03/13/24 03/13/24 History PARoxetine [Paxil] 10 mg PO DAILY 03/13/24 03/13/24 History Propranolol HCl [Inderal] 60 mg PO BID 03/13/24 03/13/24 History metroNIDAZOLE [Flagyl] 500 mg PO TID-W/MEALS 03/13/24 03/13/24 History valACYclovir HCL [Valacyclovir] 500 mg PO BID 03/13/24 03/13/24 History Allergies Allergy/AdvReac Type Severity Reaction Status Date / Time No Known Allergies Allergy Verified 03/13/24 16:27 Surgical - Exam Vital Signs Temp Pulse Resp BP 98.3 F 82 18 112/74 03/13/24 14:44 03/13/24 14:44 03/13/24 14:44 03/13/24 14:44 Results - Labs 03/13/24 18:00 03/13/24 18:00 Abnormal Lab Results - Last 24 Hours (Table) 03/13/24 03/13/24 Range/Units 18:00 18:00 WBC 16.4 H (3.8-10.6) k/uL Neutrophils # 14.1 H (1.3-7.7) k/uL Sodium 135 L (137-145) mmol/L AST 39 H (14-36) U/L Total Protein 6.0 L (6.3-8.2) g/dL Albumin 3.3 L (3.5-5.0) g/dL Diabetes panel 03/13/24 Range/Units 18:00 Sodium 135 L (137-145) mmol/L Potassium 3.7 (3.5-5.1) mmol/L Chloride 105 (98-107) mmol/L Carbon Dioxide 25 (22-30) mmol/L BUN 9 (7-17) mg/dL Creatinine 0.60 (0.52-1.04) mg/dL Glucose 89 (74-99) mg/dL Calcium 8.7 (8.4-10.2) mg/dL AST 39 H (14-36) U/L ALT 17 (4-34) U/L Alkaline Phosphatase 115 (38-126) U/L Total Protein 6.0 L (6.3-8.2) g/dL Albumin 3.3 L (3.5-5.0) g/dL Calcium panel 03/13/24 Range/Units 18:00 Calcium 8.7 (8.4-10.2) mg/dL Albumin 3.3 L (3.5-5.0) g/dL Pituitary panel 03/13/24 Range/Units 18:00 Sodium 135 L (137-145) mmol/L Potassium 3.7 (3.5-5.1) mmol/L Chloride 105 (98-107) mmol/L Carbon Dioxide 25 (22-30) mmol/L BUN 9 (7-17) mg/dL Creatinine 0.60 (0.52-1.04) mg/dL Glucose 89 (74-99) mg/dL Calcium 8.7 (8.4-10.2) mg/dL Adrenal panel 03/13/24 Range/Units 18:00 Sodium 135 L (137-145) mmol/L Potassium 3.7 (3.5-5.1) mmol/L Chloride 105 (98-107) mmol/L Carbon Dioxide 25 (22-30) mmol/L BUN 9 (7-17) mg/dL Creatinine 0.60 (0.52-1.04) mg/dL Glucose 89 (74-99) mg/dL Calcium 8.7 (8.4-10.2) mg/dL Total Bilirubin 1.0 (0.2-1.3) mg/dL AST 39 H (14-36) U/L ALT 17 (4-34) U/L Alkaline Phosphatase 115 (38-126) U/L Total Protein 6.0 L (6.3-8.2) g/dL Albumin 3.3 L (3.5-5.0) g/dL
[2024-03-14 15:28] LABS: Basophils % (A) 0 %; Eosinophils # (A) 0.2 k/uL (0-0.7); Eosinophils % (A) 1 %; HGB 12.7 gm/dL (11.4-16.0); Lymphocytes # (A) 1.5 k/uL (1.0-4.8); Lymphocytes % (A) 11 %; MCHC 33.5 g/dL (31.0-37.0); MCV 98.5 fL (80.0-100.0); Mean Platelet Volume 7.8; Monocytes # (A) 0.7 k/uL (0-1.0); Monocytes % (A) 5 %; Neutrophils % (A) 81 %; Platelet Count 398 k/uL (150-450); RBC 3.86 m/uL (3.80-5.40); RDW 12.2 % (11.5-15.5); WBC 13.5 k/uL (3.8-10.6)
[2024-03-14 15:39] LABS: African American GFR (CKD) >90 (>60 ml/min/1.73 sqM); Anion Gap 2 mmol/L; Blood Urea Nitrogen 5 mg/dL (7-17); Calcium 8.2 mg/dL (8.4-10.2); Carbon Dioxide 28 mmol/L (22-30); Chloride 104 mmol/L (98-107); Glucose 81 mg/dL (74-99); Non-African American GFR(CKD) >90 (>60 ml/min/1.73 sqM); Potassium 3.1 mmol/L (3.5-5.1); Sodium 134 mmol/L (137-145)
[2024-03-14] MEDS ORDERED: Potassium Replacement Protocol 1 EACH MISC MISCELLANE PRN (16:17)
[2024-03-14] MEDS: KETOROLAC 15 MG/ML 1 ML VIAL IVP SCH ×2 (16:54→16:57)
[2024-03-14] MEDS: POTASSIUM CHLORIDE 10 MEQ in WATER FOR INJECTION 1 100ML.BAG IVPB SCH (19:52)
--- NOTE | 2024-03-15 06:46 | P.PN ---
Subjective Progress Note Date: 03/14/24 This is a 48-year-old female who presented to the emergency department and sent from [facility] with concerns of diverticulitis with perforation. Patient has history of diverticulitis although has never required surgery. Patient reports she lives up in [facility] and her PCP is in [place]. Patient reports she was sleeping and Monday night into Monday she woke up instantly with severe abdominal pain that continued to get worse. Patient having multiple episodes of diarrhea and loose stools with continued nausea and abdominal pain. Patient was admitted to surgery services with medical on consult. Patient is currently n.p.o. and plans were for surgery today with Dr. Hagen although patient would like another physician. Dr. Anthony is being consulted for evaluation. REVIEW OF SYSTEMS: CONSTITUTIONAL: No fever, no malaise, no fatigue. HEENT: No recent visual problems or hearing problems. Denied any sore throat. CARDIOVASCULAR: No chest pain, orthopnea, PND, no palpitations, no syncope. PULMONARY: No shortness of breath, no cough, no hemoptysis. GASTROINTESTINAL: Reports diarrhea, reports nausea, reports vomiting although not eating and has had no further episodes of vomiting, reports severe right lower abdominal pain. NEUROLOGICAL: No headaches, no weakness, no numbness. HEMATOLOGICAL: Denies any bleeding or petechiae. GENITOURINARY: Denies any burning micturition, frequency, or urgency. MUSCULOSKELETAL/RHEUMATOLOGICAL: Denies any joint pain, swelling, or any muscle pain. ENDOCRINE: Denies any polyuria or polydipsia. The rest of the 14-point review of systems is negative. PHYSICAL EXAMINATION: GENERAL: The patient is alert and oriented x3, appears in pain and anxious on exam. Well developed, well nourished. HEENT: Pupils are round and equally reacting to light. EOMI. No scleral icterus. No conjunctival pallor. Normocephalic, atraumatic. No pharyngeal erythema. No thyromegaly. CARDIOVASCULAR: S1 and S2 muffled PULMONARY: Diminished breath sounds bilaterally otherwise chest is clear to auscultation, no wheezing or crackles. ABDOMEN: Soft, tenderness with guarding noted, nondistended, normoactive bowel sounds. No palpable organomegaly. MUSCULOSKELETAL: No joint swelling or deformity. EXTREMITIES: No cyanosis, clubbing, or pedal edema. NEUROLOGICAL: Gross neurological examination did not reveal any focal deficits. SKIN: No rashes. Assessment: Abdominal pain secondary to diverticulitis with concerns of perforation noted on imaging History of diverticulitis History of CVA Continued ongoing nicotine dependence, patient reports has not smoked in 3 days History of ovarian cancer GI prophylaxis DVT prophylaxis Full code Plan: Patient was admitted to general surgery Dr. Hagen although per nursing staff patient is requesting second opinion and does not want current surgeon. Conversation between nursing and admitting services to request if okay for second opinion. Dr. Anthony has been consulted and pending Continue antibiotics Follow-up on repeat labs and monitor kidney functions and electrolytes closely. Replace electrolytes per protocol Pain management per general surgery. Patient is continued on IV Dilaudid and Toradol being added Keep patient n.p.o. Will reconcile and resume appropriate home medications once patient has been approved for diet Offered nicotine patch as needed as patient is a smoker. Patient reports she has not smoked in 3 days We will continue to follow with general surgery during hospitalization. Thank you kindly for this consultation. The impression and plan of care has been dictated by Maria R Vick, Nurse Practitioner as directed. Dr. Sue MD I have performed a history and examination and MDM of this patient, discussed the same with the dictator, and agree with the dictator's assessment and plan as written ,documented as a scribe. Based on total visit time, I have performed more than 50% of the visit. Objective - Vital Signs Vital signs: Vital Signs Temp 98.4 F 03/14/24 07:00 Pulse 87 03/14/24 07:00 Resp 16 03/14/24 07:00 BP 118/73 03/14/24 07:00 Pulse Ox 100 03/14/24 07:00 FiO2 Intake & Output 03/13/24 03/14/24 03/14/24 18:59 06:59 18:59 Weight 74.843 kg Other: Voiding Method Toilet # Voids 2 - Labs CBC & Chem 7: 03/14/24 14:59 03/14/24 14:59 Labs: Abnormal Lab Results - Last 24 Hours (Table) 03/13/24 03/13/24 Range/Units 18:00 18:00 WBC 16.4 H (3.8-10.6) k/uL Neutrophils # 14.1 H (1.3-7.7) k/uL Sodium 135 L (137-145) mmol/L AST 39 H (14-36) U/L Total Protein 6.0 L (6.3-8.2) g/dL Albumin 3.3 L (3.5-5.0) g/dL
[2024-03-15] MEDS: PANTOPRAZOLE 40 MG/10 ML VIAL IVP SCH (08:35)
[2024-03-15 09:10] LABS: Blood Urea Nitrogen 8.1 mg/dL (9.0-27.0); Calcium 7.9 mg/dL (8.7-10.3); Carbon Dioxide 24.1 mmol/L (21.6-31.8); Chloride 102 mmol/L (96-109); Glucose 82 mg/dL (70-110); Potassium 3.5 mmol/L (3.5-5.5); Sodium 136 mmol/L (135-145)
--- NOTE | 2024-03-15 11:57 | P.GSHP ---
History of Present Illness H&P Date: 03/15/24 Patient transferred to this service secondary to wanting second opinion and not agreeing with previous surgeon. 48-year-old female presented to [facility] as a transfer from outside facility secondary to worsening symptoms from diverticulitis. She states that about 6 days ago she began having intense abdominal pain that progressed and she presented to her local hospital. She was admitted and on IV antibiotics overnight and began feeling better and was discharged home with oral antibioti cs. She continued oral antibiotics and pain medication for 2 days with significant worsening and presented back to the emergency department with finding of worsening diverticulitis. She was then transferred to this facility. She was evaluated by previous surgery team and recommendation was made for operative intervention. She wanted second opinion. On evaluation today, patient's pain has significantly improved. She states that this is the best she has felt in a week. She is currently on Zosyn and IV Toradol for pain medication. She denies any significant bowel function at this time. Denies nausea or vomiting. She states that she has had about 3 or 4 diverticulitis episodes over the past 5 years. She denies ever having a colonoscopy. CT of the abdomen and pelvis was performed with finding of phlegmon in the pelvis closer to the right side than the left side as she does have a redundant sigmoid colon. She does admit that most of her pain was on the right side. Denies febrile episodes. - Review of Systems All systems: negative Past Medical History Past Medical History: Cancer Additional Past Medical History / Comment(s): Cervical cancer with surgery, migraines, palpitations, diverticulosis, History of Any Multi-Drug Resistant Organisms: None Reported Past Surgical History: Orthopedic Surgery, Tubal Ligation, Uterine Ablation Additional Past Surgical History / Comment(s): LEEP procedure; ORIF R ankle- hardware removed then post op infection with I&D Past Anesthesia/Blood Transfusion Reactions: No Reported Reaction Past Psychological History: No Psychological Hx Reported Smoking Status: Current some day smoker Past Alcohol Use History: Occasional Past Drug Use History: Marijuana - Past Family History Mother Family Medical History: COPD, Coronary Artery Disease (CAD) Additional Family Medical History / Comment(s): Mother had Grave's disease. She is . Father Family Medical History: Cancer Additional Family Medical History / Comment(s): COLON CANCERDiverticular disease, Medications and Allergies Home Medications Medication Instructions Recorded Confirmed Type valACYclovir HCL [Valtrex] 500 mg PO BID 08/02/16 03/07/22 History Propranolol LA [Inderal LA] 60 mg PO BID 30 Days #60 cap.sa.24h 01/31/20 03/07/22 Rx Ciprofloxacin HCl [Cipro] 500 mg PO Q12HR 5 Days #10 tab 06/05/22 Rx HYDROcodone/APAP 5-325MG [[place] 1 tab PO Q6HR PRN 3 Days #12 tab 06/05/22 Rx 5-325] metroNIDAZOLE [Flagyl] 500 mg PO TID 5 Days #15 tab 06/05/22 Rx Amoxic-Pot Clav 875-125Mg 1 tab PO Q12HR 03/13/24 03/13/24 History [Augmentin 875-125] HYDROcodone/APAP 5-325MG [[place] 1 tab PO Q6H PRN 03/13/24 03/13/24 History 5-325] Ibuprofen [Motrin] 600 mg PO Q6H PRN 03/13/24 03/13/24 History PARoxetine [Paxil] 10 mg PO DAILY 03/13/24 03/13/24 History Propranolol HCl [Inderal] 60 mg PO BID 03/13/24 03/13/24 History metroNIDAZOLE [Flagyl] 500 mg PO TID-W/MEALS 03/13/24 03/13/24 History valACYclovir HCL [Valacyclovir] 500 mg PO BID 03/13/24 03/13/24 History Allergies Allergy/AdvReac Type Severity Reaction Status Date / Time No Known Allergies Allergy Verified 03/15/24 10:24 Surgical - Exam Osteopathic Statement: *. No significant issues noted on an osteopathic stru ctural exam other than those noted in the History and Physical/Consult. Vital Signs Temp Pulse Resp BP 98.3 F 82 18 112/74 03/13/24 14:44 03/13/24 14:44 03/13/24 14:44 03/13/24 14:44 - General well developed, well nourished, no distress - Eyes normal ocular movement - ENT no hearing loss - Neck trachea midline - Respiratory normal respiratory effort - Abdomen soft, nontender, nondistended, no rebound or guarding - Psychiatric oriented to time, oriented to person, oriented to place Results - Labs 03/14/24 14:59 03/15/24 04:24 Abnormal Lab Results - Last 24 Hours (Table) 03/14/24 03/14/24 03/15/24 Range/Units 14:59 14:59 04:24 WBC 13.5 H (3.8-10.6) k/uL Neutrophils # 11.0 H (1.3-7.7) k/uL Sodium 134 L (137-145) mmol/L Potassium 3.1 L (3.5-5.1) mmol/L BUN 5 L 8.1 L (7-17) mg/dL Calcium 8.2 L 7.9 L (8.4-10.2) mg/dL Diabetes panel 03/14/24 03/15/24 Range/Units 14:59 04:24 Sodium 134 L 136 (137-145) mmol/L Potassium 3.1 L 3.5 (3.5-5.1) mmol/L Chloride 104 102 (98-107) mmol/L Carbon Dioxide 28 24.1 (22-30) mmol/L BUN 5 L 8.1 L (7-17) mg/dL Creatinine 0.56 0.6 (0.52-1.04) mg/dL Glucose 81 82 (74-99) mg/dL Calcium 8.2 L 7.9 L (8.4-10.2) mg/dL Calcium panel 03/14/24 03/15/24 Range/Units 14:59 04:24 Calcium 8.2 L 7.9 L (8.4-10.2) mg/dL Pituitary panel 03/14/24 03/15/24 Range/Units 14:59 04:24 Sodium 134 L 136 (137-145) mmol/L Potassium 3.1 L 3.5 (3.5-5.1) mmol/L Chloride 104 102 (98-107) mmol/L Carbon Dioxide 28 24.1 (22-30) mmol/L BUN 5 L 8.1 L (7-17) mg/dL Creatinine 0.56 0.6 (0.52-1.04) mg/dL Glucose 81 82 (74-99) mg/dL Calcium 8.2 L 7.9 L (8.4-10.2) mg/dL Adrenal panel 03/14/24 03/15/24 Range/Units 14:59 04:24 Sodium 134 L 136 (137-145) mmol/L Potassium 3.1 L 3.5 (3.5-5.1) mmol/L Chloride 104 102 (98-107) mmol/L Carbon Dioxide 28 24.1 (22-30) mmol/L BUN 5 L 8.1 L (7-17) mg/dL Creatinine 0.56 0.6 (0.52-1.04) mg/dL Glucose 81 82 (74-99) mg/dL Calcium 8.2 L 7.9 L (8.4-10.2) mg/dL Assessment and Plan Plan: 48-year-old female with recurrent diverticulitis complicated with phlegmon formation. Currently, she appears to be improved with IV antibiotic treatment along with Toradol as anti-inflammatory. I did have a long discussion with the patient and her family at bedside on management plan. Currently, it does appear that her leukocytosis is improving, however with phlegmon formation she is still at risk of forming an intra-abdominal abscess. We will continue to treat her with IV antibiotics and consider possible repeat imaging based on her clinical progress. With intra-abdominal abscess formation, she may require either IR drainage versus surgical intervention versus prolonged antibiotic therapy. As she has had improvement, surgery at this time is not urgently indicated. This can change based on her clinical status. Currently no signs of sepsis or septic shock. She is agreeable with this plan. All questions were answered at bedside. Time with Patient: Greater than 30
[2024-03-15] MEDS: PARoxetine 10 MG TAB PO SCH (12:19)
[2024-03-15] MEDS: PROPRANOLOL 20 MG TAB PO SCH (12:19)
--- NOTE | 2024-03-15 12:44 | P.PN ---
Subjective Progress Note Date: 03/15/24 This is a 48-year-old female who presented to the emergency department and sent from [facility] with concerns of diverticulitis with perforation. Patient has history of diverticulitis although has never required surgery. Patient reports she lives up in [place] [facility] and her PCP is in [place]. P atient reports she was sleeping and Monday night into Monday she woke up instantly with severe abdominal pain that continued to get worse. Patient having multiple episodes of diarrhea and loose stools with continued nausea and abdominal pain. Patient was admitted to surgery services with medical on consult. Patient is currently n.p.o. and plans were for surgery today with Dr. Hagen although patient would like another physician. Dr. Anthony is being consulted for evaluation. 03/15/2024 Patient is eval today in follow-up on the medical floor, not yet having a bowel movement she does feel bloated today. Patient was evaluated in follow up by a second opinion surgical group and felt at this time no need for surgical intervention and will continue with conservative management with IV antibiotics and bowel rest and supportive care. She is continued on the IV toradol and feels this has helped the most with her abdominal pain and we will also recommend to add mylicon gtts. Sodium better at 136, potassium 3.5. Renal function WNL. REVIEW OF SYSTEMS: CONSTITUTIONAL: No fever, no malase, no fatigue. HEENT: No recent visual problems or hearing problems. Denied any sore throat. CARDIOVASCULAR: No chest pain, orthopnea, PND, no palpitations, no syncope. PULMONARY: No shortness of breath, no cough, no hemoptysis. GASTROINTESTINAL: Reports diarrhea, reports nausea, reports vomiting although not eating and has had no further episodes of vomiting, reports severe right lower abdominal pain. NEUROLOGICAL: No headaches, no weakness, no numbness. PHYSICAL EXAMINATION: GENERAL: The patient is alert and oriented x3, appears in pain and anxious on exam. Well developed, well nourished. HEENT: Pupils are round and equally reacting to light. EOMI. No scleral icterus. No conjunctival pallor. Normocephalic, atraumatic. No pharyngeal erythema. No thyromegaly. CARDIOVASCULAR: S1 and S2 muffled PULMONARY: Diminished breath sounds bilaterally otherwise chest is clear to auscultation, no wheezing or crackles. ABDOMEN: Soft, tenderness with guarding noted, Mild distention but soft and not tympanic, Hyperactive bowel sounds. No palpable organomegaly. MUSCULOSKELETAL: No joint swelling or deformity. EXTREMITIES: No cyanosis, clubbing, or pedal edema. NEUROLOGICAL: Gross neurological examination did not reveal any focal deficits. SKIN: No rashes. Assessment: Abdominal pain secondary to diverticulitis with concerns of perforation noted on imaging Hypokalemia from poor oral intake improved with IV supplementation History of diverticulitis History of CVA Continued ongoing nicotine dependence, patient reports has not smoked in 3 days History of ovarian cancer GI prophylaxis DVT prophylaxis Full code Plan: Patient was evaluated by second opinion Dr. Anthony who has evaluated the patient today and will continue with conservative management with IV antibiotics and possible repeat imaging to monitor her clinical improvement due to the presence of phlegmon on imaging. Continue antibiotics Follow-up on repeat labs and monitor kidney functions and electrolytes closely. Replace electrolytes per protocol Pain management per general surgery. Patient is continued on IV Dilaudid and Toradol being added Keep patient n.p.o. Home medication rec done, add mylicon gtts. Offered nicotine patch as needed as patient is a smoker. Patient reports she has not smoked in 3 days We will continue to follow with general surgery during hospitalization. Thank you kindly for this consultation. Repeat blood work in the morning. The impression and plan of care has been dictated by Mary Beth Slaughter, Nurse Practitioner as directed. Dr. Sue MD I have performed a history and physical examination and medical decision making of this patient, discussed the same with the dictator, and agree with the dictators assessment and plan as written, documented as a scribe. Based on total visit time, I have performed more than 50% of this visit. Objective - Vital Signs Vital signs: Vital Signs Temp 98.1 F 03/15/24 07:22 Pulse 85 03/15/24 07:22 Resp 18 03/15/24 07:22 BP 133/70 03/15/24 07:22 Pulse Ox 100 03/15/24 07:22 FiO2 Intake & Output 03/14/24 03/15/24 03/15/24 18:59 06:59 18:59 Other: Voiding Method Toilet Toilet Toilet # Voids 2 3 - Labs CBC & Chem 7: 03/14/24 14:59 03/15/24 04:24 Labs: Abnormal Lab Results - Last 24 Hours (Table) 03/14/24 03/14/24 03/15/24 Range/Units 14:59 14:59 04:24 WBC 13.5 H (3.8-10.6) k/uL Neutrophils # 11.0 H (1.3-7.7) k/uL Sodium 134 L (137-145) mmol/L Potassium 3.1 L (3.5-5.1) mmol/L BUN 5 L 8.1 L (7-17) mg/dL Calcium 8.2 L 7.9 L (8.4-10.2) mg/dL Assessment and Plan Time with Patient: Less than 30
[2024-03-15] MEDS: SIMETHICONE 40 MG/0.6 ML DROPS 2,000 MG/30 ML BOTTLE PO SCH (14:12)
[2024-03-15] MEDS: POTASSIUM CHLORIDE ER 20 MEQ TAB.ER PO STA (14:12)
[2024-03-15] MEDS: valACYclovir HCL 500 MG TAB PO SCH (21:02)
[2024-03-15] MEDS: HYDROmorphone 0.5 MG/0.5 ML SYRINGE IVP PRN (21:13)
[2024-03-16 08:24] LABS: African American GFR (CKD) >90 (>60 ml/min/1.73 sqM); Anion Gap 9 mmol/L; Blood Urea Nitrogen 10 mg/dL (7-17); Calcium 8.4 mg/dL (8.4-10.2); Carbon Dioxide 23 mmol/L (22-30); Chloride 104 mmol/L (98-107); Glucose 65 mg/dL (74-99); Magnesium 1.9 mg/dL (1.6-2.3); Non-African American GFR(CKD) >90 (>60 ml/min/1.73 sqM); Potassium 3.8 mmol/L (3.5-5.1); Sodium 136 mmol/L (137-145)
--- NOTE | 2024-03-16 10:02 | P.PN ---
Subjective Progress Note Date: 03/16/24 Patient seen and examined at bedside. States abdominal pain continues to improve. Objective - Vital Signs Vital signs: Vital Signs Temp 98.1 F 03/16/24 07:56 Pulse 68 03/16/24 07:56 Resp 18 03/16/24 07:56 BP 157/90 03/16/24 07:56 Pulse Ox 99 03/16/24 07:56 FiO2 Intake & Output 03/15/24 03/16/24 03/16/24 18:59 06:59 18:59 Other: Voiding Method Toilet # Voids 2 0 - Constitutional General appearance: Present: cooperative - Gastrointestinal Gastrointestinal Comment(s): Soft, mildly tender to palpation in the right lower quadrant, nondistended, no rebound or guarding - Psychiatric Psychiatric: Present: A&O x's 3 - Labs CBC & Chem 7: 03/14/24 14:59 03/16/24 06:55 Labs: Abnormal Lab Results - Last 24 Hours (Table) 03/16/24 Range/Units 06:55 Sodium 136 L (137-145) mmol/L Glucose 65 L (74-99) mg/dL Assessment and Plan Plan: 48-year-old female with diverticulitis complicated with phlegmon formation. Continues to have improvement on abdominal exam. Awaiting CBC this morning. Likely advance to clear liquid diet. Based on exam and laboratory value development, decision on repeat CT scan. Otherwise, continue current regimen as she is having improvement with antibiotics.
[2024-03-16 13:21] LABS: Basophils # (A) 0.07 X 10*3/uL (0.00-0.10); Basophils % (A) 0.7 %; Eosinophils # (A) 0.11 X 10*3/uL (0.04-0.35); Eosinophils % (A) 1.1 %; HCT 37.9 % (37.2-46.3); HGB 13.1 g/dL (12.0-15.0); Lymphocytes # (A) 1.54 X 10*3/uL (0.90-5.00); Lymphocytes % (A) 14.7 %; MCHC 34.6 g/dL (32.0-37.0); MCV 95.5 FL (80.0-97.0); Mean Platelet Volume 9.8 FL (9.5-12.2); Monocytes % (A) 6.7 %; NRBC Per 100 WBC 0 X 10*3/uL (0.00-0.01); Neutrophils # (A) 7.91 X 10*3/uL (1.80-7.70); Neutrophils % (A) 75.6 %; Platelet Count 504 X 10*3/uL (140-440); RBC 3.97 X 10*6/uL (4.10-5.20); RDW 12.3 % (11.5-14.5); WBC 10.46 X 10*3/uL (4.50-10.00)
--- NOTE | 2024-03-17 09:57 | P.PN ---
Subjective Progress Note Date: 03/17/24 Patient seen and examined at bedside. States abdominal pain continues to improve. Having multiple bowel movements. Tolerating clear liquid diet. Objective - Vital Signs Vital signs: Vital Signs Temp 98.1 F 03/17/24 00:22 Pulse 73 03/17/24 00:22 Resp 16 03/17/24 00:22 BP 130/77 03/17/24 00:22 Pulse Ox 98 03/17/24 00:22 FiO2 Intake & Output 03/16/24 03/17/24 03/17/24 18:59 06:59 18:59 Other: Voiding Method Toilet # Voids 2 1 # Bowel Movements 1 - Constitutional General appearance: Present: cooperative, no acute distress - Gastrointestinal Gastrointestinal Comment(s): Soft, mild tenderness to right lower quadrant, nondistended, no rebound, no guarding - Psychiatric Psychiatric: Present: A&O x's 3 - Labs CBC & Chem 7: 03/16/24 06:55 03/16/24 06:55 Labs: Abnormal Lab Results - Last 24 Hours (Table) 03/16/24 Range/Units 06:55 WBC 10.46 H (4.50-10.00) X 10*3/uL RBC 3.97 L (4.10-5.20) X 10*6/uL MCH 33.0 H (27.0-32.0) pg Plt Count 504 H (140-440) X 10*3/uL Immature Gran # 0.13 H (0.00-0.04) X 10*3/uL Neutrophils # 7.91 H (1.80-7.70) X 10*3/uL Assessment and Plan Plan: 48-year-old female with diverticulitis complicated with phlegmon. Appears to be improving. Leukocytosis has been resolving. Awaiting CBC from today. Advance to full liquid diet. Discussed with patient that should she have any increase in leukocytosis, we will plan for CT of the abdomen pelvis to evaluate for pos sible abscess formation, however clinically she does appear significantly improved.
[2024-03-17 13:47] LABS: Basophils # (A) 0.05 X 10*3/uL (0.00-0.10); Basophils % (A) 0.4 %; Eosinophils # (A) 0.11 X 10*3/uL (0.04-0.35); HGB 12.2 g/dL (12.0-15.0); Lymphocytes % (A) 16.6 %; MCH 33.2 pg (27.0-32.0); MCHC 34.9 g/dL (32.0-37.0); MCV 95.4 FL (80.0-97.0); Mean Platelet Volume 10.1 FL (9.5-12.2); Monocytes # (A) 0.92 X 10*3/uL (0.20-1.00); NRBC Per 100 WBC 0 X 10*3/uL (0.00-0.01); Neutrophils # (A) 8.32 X 10*3/uL (1.80-7.70); Neutrophils % (A) 72.5 %; Platelet Count 502 X 10*3/uL (140-440); RBC 3.67 X 10*6/uL (4.10-5.20); RDW 12.5 % (11.5-14.5); WBC 11.47 X 10*3/uL (4.50-10.00)
--- NOTE | 2024-03-17 22:58 | P.PN ---
Subjective Progress Note Date: 03/16/24 This is a 48-year-old female who presented to the emergency department and sent from [facility] with concerns of diverticulitis with perforation. Patient has history of diverticulitis although has never required surgery. Patient reports she lives up in [facility] and her PCP is in [place]. Patient reports she was sleeping and Monday night into Monday she woke up instantly with severe abdominal pain that continued to get worse. Patient having multiple episodes of diarrhea and loose stools with continued nausea and abdominal pain. Patient was admitted to surgery services with medical on consult. Patient is currently n.p.o. and plans were for surgery today with Dr. Hagen although patient would like another physician. Dr. Anthony is being consulted for evaluation. 03/15/2024 Patient is eval today in follow-up on the medical floor, not yet having a bowel movement she does feel bloated today. Patient was evaluated in follow up by a second opinion surgical group and felt at this time no need for surgical intervention and will continue with conservative management with IV antibiotics and bowel rest and supportive care. She is continued on the IV toradol and feels this has helped the most with her abdominal pain and we will also recommend to add mylicon gtts. Sodium better at 136, potassium 3.5. Renal function WNL. 03/16/2024 Patient is currently lying in the bed. Awake alert and oriented x 3. On room air. Abdominal pain did improve. Patient states that IV Toradol helped with pain. Patient was started on liquid diet. Patient had bowel meant today. Otherwise patient has been current on antibiotics in the form of Zosyn. On IV hydration with normal saline at 100 cc/h. Laboratory data showed WBC trending down to 10.4 hemoglobin 13.1 and platelets 504 sodium 136 potassium 3.8 chloride 104 bicarb is 23 BUN 10 and creatinine 0.65 and magnesium 1.9. General surgery is on board. Current medications reviewed. REVIEW OF SYSTEMS: CONSTITUTIONAL: No fever, no malase, no fatigue. HEENT: No recent visual problems or hearing problems. Denied any sore throat. CARDIOVASCULAR: No chest pain, orthopnea, PND, no palpitations, no syncope. PULMONARY: No shortness of breath, no cough, no hemoptysis. NEUROLOGICAL: No headaches, no weakness, no numbness. PHYSICAL EXAMINATION: GENERAL: The patient is alert and oriented x3, appears in pain and anxious on ex am. Well developed, well nourished. HEENT: Pupils are round and equally reacting to light. EOMI. No scleral icterus. No conjunctival pallor. Normocephalic, atraumatic. No pharyngeal erythema. No thyromegaly. CARDIOVASCULAR: S1 and S2 muffled PULMONARY: Diminished breath sounds bilaterally otherwise chest is clear to auscultation, no wheezing or crackles. ABDOMEN: Soft, tenderness with guarding noted, Mild distention but soft and not tympanic, Hyperactive bowel sounds. No palpable organomegaly. MUSCULOSKELETAL: No joint swelling or deformity. EXTREMITIES: No cyanosis, clubbing, or pedal edema. NEUROLOGICAL: Gross neurological examination did not reveal any focal deficits. SKIN: No rashes. Assessment: Abdominal pain secondary to diverticulitis with concerns of perforation noted on imaging Hypokalemia from poor oral intake improved with IV supplementation History of diverticulitis History of CVA Continued ongoing nicotine dependence, patient reports has not smoked in 3 days History of ovarian cancer GI prophylaxis DVT prophylaxis Full code Plan: Patient was evaluated by second opinion Dr. Anthony who has evaluated the patient today and will continue with conservative management with IV antibiotics and possible repeat imaging to monitor her clinical improvement due to the presence of phlegmon on imaging. Continue antibiotics Follow-up on repeat labs and monitor kidney functions and electrolytes closely. Replace electrolytes per protocol Pain management per general surgery. Patient is continued on IV Dilaudid and Toradol being added Patient was started on liquid diet. Home medication rec done, add mylicon gtts. Offered nicotine patch as needed as patient is a smoker. Patient reports she has not smoked in 3 days We will continue to follow with general surgery during hospitalization. Thank you kindly for this consultation. Repeat blood work in the morning. Objective - Vital Signs Vital signs: Vital Signs Temp 98.6 F 03/16/24 13:47 Pulse 76 03/16/24 13:47 Resp 20 03/16/24 13:47 BP 123/79 03/16/24 13:47 Pulse Ox 99 03/16/24 13:47 FiO2 Intake & Output 03/15/24 03/16/24 03/16/24 18:59 06:59 18:59 Other: Voiding Method Toilet Toilet # Voids 2 0 2 - Labs CBC & Chem 7: 03/17/24 06:29 03/16/24 06:55 Labs: Abnormal Lab Results - Last 24 Hours (Table) 03/16/24 03/16/24 Range/Units 06:55 06:55 WBC 10.46 H (4.50-10.00) X 10*3/uL RBC 3.97 L (4.10-5.20) X 10*6/uL MCH 33.0 H (27.0-32.0) pg Plt Count 504 H (140-440) X 10*3/uL Immature Gran # 0.13 H (0.00-0.04) X 10*3/uL Neutrophils # 7.91 H (1.80-7.70) X 10*3/uL Sodium 136 L (137-145) mmol/L Glucose 65 L (74-99) mg/dL
[2024-03-18 12:42] LABS: BUN/Creat Ratio <5.00 Ratio (12.00-20.00); Blood Urea Nitrogen <3.5 mg/dL (9.0-27.0); Calcium 8.4 mg/dL (8.7-10.3); Carbon Dioxide 26.3 mmol/L (21.6-31.8); Chloride 103 mmol/L (96-109); Glucose 94 mg/dL (70-110); Potassium 3.8 mmol/L (3.5-5.5); Sodium 139 mmol/L (135-145)
--- NOTE | 2024-03-18 12:47 | P.PN ---
Subjective Patient seen and evaluated at bedside. Patient doing well, min abd pain, denies nausea or vomiting at this time. Objective - Vital Signs Vital signs: Vital Signs Temp 97.7 F 03/18/24 07:15 Pulse 76 03/18/24 07:15 Resp 16 03/18/24 07:15 BP 137/79 03/18/24 07:15 Pulse Ox 98 03/18/24 07:15 FiO2 Intake & Output 03/17/24 03/18/24 03/18/24 18:59 06:59 18:59 Intake Total 600 Balance 600 Intake: Oral 600 Other: # Voids 8 4 # Bowel Movements 8 - Exam gen nad cv rrr pul non labored breathing abd soft, non distended, no guarding or rebound tenderness, pain resolved - Labs CBC & Chem 7: 03/17/24 06:29 03/16/24 06:55 Labs: Abnormal Lab Results - Last 24 Hours (Table) 03/17/24 Range/Units 06:29 WBC 11.47 H (4.50-10.00) X 10*3/uL RBC 3.67 L (4.10-5.20) X 10*6/uL Hct 35.0 L (37.2-46.3) % MCH 33.2 H (27.0-32.0) pg Plt Count 502 H (140-440) X 10*3/uL Immature Gran # 0.17 H (0.00-0.04) X 10*3/uL Neutrophils # 8.32 H (1.80-7.70) X 10*3/uL Assessment and Plan Assessment: 48-year-old female with diverticulitis complicated with phlegmon. Appears to be improving. Leukocytosis has been lateralized. Awaiting CBC from today. Continue full liquid diet. Discussed with patient that should she have any increase in leukocytosis, we will plan for CT of the abdomen pelvis to evaluate for possible abscess formation, however clinically she does appear significantly improved. Time with Patient: Greater than 30
[2024-03-18 12:54] LABS: Basophils # (A) 0.06 X 10*3/uL (0.00-0.10); Basophils % (A) 0.6 %; Eosinophils # (A) 0.09 X 10*3/uL (0.04-0.35); Eosinophils % (A) 0.9 %; HGB 12.5 g/dL (12.0-15.0); Lymphocytes % (A) 21.1 %; MCH 32.8 pg (27.0-32.0); MCHC 33.8 g/dL (32.0-37.0); MCV 97.1 FL (80.0-97.0); Mean Platelet Volume 9.8 FL (9.5-12.2); Monocytes # (A) 0.74 X 10*3/uL (0.20-1.00); Monocytes % (A) 7.1 %; NRBC Per 100 WBC 0 X 10*3/uL (0.00-0.01); Neutrophils # (A) 7.23 X 10*3/uL (1.80-7.70); Neutrophils % (A) 69.2 %; Platelet Count 529 X 10*3/uL (140-440); RBC 3.81 X 10*6/uL (4.10-5.20); RDW 12.6 % (11.5-14.5); WBC 10.44 X 10*3/uL (4.50-10.00)
[2024-03-18 13:32] LABS: Basophils # (A) 0.1 k/uL (0-0.2); Basophils % (A) 1 %; Eosinophils # (A) 0.2 k/uL (0-0.7); Eosinophils % (A) 2 %; HCT 38.7 % (34.0-46.0); HGB 13.2 gm/dL (11.4-16.0); Lymphocytes # (A) 1.5 k/uL (1.0-4.8); Lymphocytes % (A) 15 %; MCH 33.4 pg (25.0-35.0); MCV 98.2 fL (80.0-100.0); Mean Platelet Volume 7.4; Monocytes # (A) 0.3 k/uL (0-1.0); Monocytes % (A) 3 %; Neutrophils # (A) 7.8 k/uL (1.3-7.7); Neutrophils % (A) 77 %; Platelet Count 584 k/uL (150-450); RBC 3.94 m/uL (3.80-5.40); RDW 12.1 % (11.5-15.5); WBC 10.1 k/uL (3.8-10.6)
--- NOTE | 2024-03-18 23:59 | P.PN ---
Subjective Progress Note Date: 03/17/24 This is a 48-year-old female who presented to the emergency department and sent from [facility] with concerns of diverticulitis with perforation. Patient has history of diverticulitis although has never required surgery. Patient reports she lives up in [facility] and her PCP is in [place]. Patient reports she was sleeping and Monday night into Monday she woke up instantly with severe abdominal pain that continued to get worse. Patient having multiple episodes of diarrhea and loose stools with continued nausea and abdominal pain. Patient was admitted to surgery services with medical on consult. Patient is currently n.p.o. and plans were for surgery today with Dr. Hagen although patient would like another physician. Dr. Anthony is being consulted for evaluation. 03/15/2024 Patient is eval today in follow-up on the medical floor, not yet having a bowel movement she does feel bloated today. Patient was evaluated in follow up by a second opinion surgical group and felt at this time no need for surgical intervention and will continue with conservative management with IV antibiotics and bowel rest and supportive care. She is continued on the IV toradol and feels this has helped the most with her abdominal pain and we will also recommend to add mylicon gtts. Sodium better at 136, potassium 3.5. Renal function WNL. 03/16/2024 Patient is currently lying in the bed. Awake alert and oriented x 3. On room air. Abdominal pain did improve. Patient states that IV Toradol helped with pain. Patient was started on liquid diet. Patient had bowel meant today. Otherwise patient has been current on antibiotics in the form of Zosyn. On IV hydration with normal saline at 100 cc/h. Laboratory data showed WBC trending down to 10.4 hemoglobin 13.1 and platelets 504 sodium 136 potassium 3.8 chloride 104 bicarb is 23 BUN 10 and creatinine 0.65 and magnesium 1.9. General surgery is on board. Current medications reviewed. 03/17/2024 Patient is resting in the bed. Awake alert and oriented x 3. His blood abdominal pain continues to get better. Patient does have a bowel movement. Also able to tolerating liquid diet. No complaints of chest pain or shortness of breath. Laboratory data showed WBC 11.4 hemoglobin 12.2 and platelets 502 General surgery is on board. Patient is on IV hydration with normal saline and antibiotics of Zosyn. REVIEW OF SYSTEMS: CONSTITUTIONAL: No fever, no malase, no fatigue. HEENT: No recent visual problems or hearing problems. Denied any sore throat. CARDIOVASCULAR: No chest pain, orthopnea, PND, no palpitations, no syncope. PULMONARY: No shortness of breath, no cough, no hemoptysis. NEUROLOGICAL: No headaches, no weakness, no numbness. PHYSICAL EXAMINATION: GENERAL: The patient is alert and oriented x3, appears in pain and anxious on exam. Well developed, well nourished. HEENT: Pupils are round and equally reacting to light. EOMI. No scleral icterus. No conjunctival pallor. Normocephalic, atraumatic. No pharyngeal erythema. No thyromegaly. CARDIOVASCULAR: S1 and S2 muffled PULMONARY: Diminished breath sounds bilaterally otherwise chest is clear to auscultation, no wheezing or crackles. ABDOMEN: Soft, tenderness with guarding noted, Mild distention but soft and not tympanic, Hyperactive bowel sounds. No palpable organomegaly. MUSCULOSKELETAL: No joint swelling or deformity. EXTREMITIES: No cyanosis, clubbing, or pedal edema. NEUROLOGICAL: Gross neurological examination did not reveal any focal deficits. SKIN: No rashes. Assessment: Abdominal pain secondary to diverticulitis with concerns of perforation noted on imaging Hypokalemia from poor oral intake improved with IV supplementation History of diverticulitis History of CVA Continued ongoing nicotine dependence, patient reports has not smoked in 3 days History of ovarian cancer GI prophylaxis DVT prophylaxis Full code Plan: Patient was evaluated by second opinion Dr. Anthony who has evaluated the patient today and will continue with conservative management with IV antibiotics and possible repeat imaging to monitor her clinical improvement due to the presence of phlegmon on imaging. Continue antibiotics Follow-up on repeat labs and monitor kidney functions and electrolytes closely. Replace electrolytes per protocol Pain management per general surgery. Patient is continued on IV Dilaudid and Toradol being added Patient was started on liquid diet. Home medication rec done, add mylicon gtts. Offered nicotine patch as needed as patient is a smoker. Patient reports she has not smoked in 3 days We will continue to follow with general surgery during hospitalization. Thank you kindly for this consultation. Repeat blood work in the morning. Objective - Vital Signs Vital signs: Vital Signs Temp 97.7 F 03/17/24 20:57 Pulse 63 03/17/24 20:57 Resp 14 03/17/24 20:57 BP 130/78 03/17/24 20:57 Pulse Ox 99 03/17/24 20:57 FiO2 Intake & Output 03/17/24 03/17/24 03/18/24 06:59 18:59 06:59 Intake Total 600 Balance 600 Intake: Oral 600 Other: # Voids 1 8 # Bowel Movements 1 8 - Labs CBC & Chem 7: 03/18/24 13:20 03/18/24 04:51 Labs: Abnormal Lab Results - Last 24 Hours (Table) 03/17/24 Range/Units 06:29 WBC 11.47 H (4.50-10.00) X 10*3/uL RBC 3.67 L (4.10-5.20) X 10*6/uL Hct 35.0 L (37.2-46.3) % MCH 33.2 H (27.0-32.0) pg Plt Count 502 H (140-440) X 10*3/uL Immature Gran # 0.17 H (0.00-0.04) X 10*3/uL Neutrophils # 8.32 H (1.80-7.70) X 10*3/uL
--- NOTE | 2024-03-19 00:01 | P.PN ---
Subjective Progress Note Date: 03/18/24 This is a 48-year-old female who presented to the emergency department and sent from [facility] with concerns of diverticulitis with perforation. Patient has history of diverticulitis although has never required surgery. Patient reports she lives up in [facility] and her PCP is in [place]. Patient reports she was sleeping and Monday night into Monday she woke up instantly with severe abdominal pain that continued to get worse. Patient having multiple episodes of diarrhea and loose stools with continued nausea and abdominal pain. Patient was admitted to surgery services with medical on consult. Patient is currently n.p.o. and plans were for surgery today with Dr. Hagen although patient would like another physician. Dr. Anthony is being consulted for evaluation. 03/15/2024 Patient is eval today in follow-up on the medical floor, not yet having a bowel movement she does feel bloated today. Patient was evaluated in follow up by a second opinion surgical group and felt at this time no need for surgical intervention and will continue with conservative management with IV antibiotics and bowel rest and supportive care. She is continued on the IV toradol and feels this has helped the most with her abdominal pain and we will also recommend to add mylicon gtts. Sodium better at 136, potassium 3.5. Renal function WNL. 03/16/2024 Patient is currently lying in the bed. Awake alert and oriented x 3. On room air. Abdominal pain did improve. Patient states that IV Toradol helped with pain. Patient was started on liquid diet. Patient had bowel meant today. Otherwise patient has been current on antibiotics in the form of Zosyn. On IV hydration with normal saline at 100 cc/h. Laboratory data showed WBC trending down to 10.4 hemoglobin 13.1 and platelets 504 sodium 136 potassium 3.8 chloride 104 bicarb is 23 BUN 10 and creatinine 0.65 and magnesium 1.9. General surgery is on board. Current medications reviewed. 03/17/2024 Patient is resting in the bed. Awake alert and oriented x 3. His blood abdominal pain continues to get better. Patient does have a bowel movement. Also able to tolerating liquid diet. No complaints of chest pain or shortness of breath. Laboratory data showed WBC 11.4 hemoglobin 12.2 and platelets 502 General surgery is on board. Patient is on IV hydration with normal saline and antibiotics of Zosyn. 03/18/2024 Patient is resting in the bed. Awake alert and oriented x 3. No complaints of chest pain or shortness of breath. Abdominal pain is very minimal. Patient is having bowel meds. Denied any hematemesis or melena. No nausea or vomiting. Tolerating liquid diet and advance to soft diet by general surgery. Laboratory data done today showed WBC 10.1 hemoglobin 13.2 and platelets 484 sodium 139 potassium 3.8 chloride 103 bicarb is 26.3 BUN less than 3.5 creatinine 0.7 and calcium 8.4. Patient has been currently on IV hydration and Zosyn. Also on Protonix 40 mg IV twice daily. Also on Valtrex. REVIEW OF SYSTEMS: CONSTITUTIONAL: No fever, no malase, no fatigue. HEENT: No recent visual problems or hearing problems. Denied any sore throat. CARDIOVASCULAR: No chest pain, orthopnea, PND, no palpitations, no syncope. PULMONARY: No shortness of breath, no cough, no hemoptysis. NEUROLOGICAL: No headaches, no weakness, no numbness. PHYSICAL EXAMINATION: GENERAL: The patient is alert and oriented x3, appears in pain and anxious on exam. Well developed, well nourished. HEENT: Pupils are round and equally reacting to light. EOMI. No scleral icterus. No conjunctival pallor. Normocephalic, atraumatic. No pharyngeal erythema. No thyromegaly. CARDIOVASCULAR: S1 and S2 muffled PULMONARY: Diminished breath sounds bilaterally otherwise chest is clear to auscultation, no wheezing or crackles. ABDOMEN: Soft, tenderness with guarding noted, Mild distention but soft and not tympanic, Hyperactive bowel sounds. No palpable organomegaly. MUSCULOSKELETAL: No joint swelling or deformity. EXTREMITIES: No cyanosis, clubbing, or pedal edema. NEUROLOGICAL: Gross neurological examination did not reveal any focal deficits. SKIN: No rashes. Assessment: Abdominal pain secondary to diverticulitis with concerns of perforation noted on imaging. Improving clinically. Hypokalemia from poor oral intake improved with IV supplementation History of diverticulitis History of CVA Continued ongoing nicotine dependence, patient reports has not smoked in 3 days History of ovarian cancer GI prophylaxis DVT prophylaxis Full code Plan: Patient was evaluated by second opinion Dr. Anthony who has evaluated the patient today and will continue with conservative management with IV antibiotics and possible repeat imaging to monitor her clinical improvement due to the presence of phlegmon on imaging. Continue antibiotics Pain management per general surgery. Patient is continued on IV Dilaudid and Toradol being added Patient was started on liquid diet. Advance to soft diet today. Offered nicotine patch as needed as patient is a smoker. Patient reports she has not smoked in 3 days We will continue to follow with general surgery during hospitalization. Thank you kindly for this consultation. Repeat blood work in the morning. Objective - Vital Signs Vital signs: Vital Signs Temp 98.7 F 03/18/24 13:34 Pulse 65 03/18/24 13:34 Resp 17 03/18/24 13:34 BP 126/77 03/18/24 13:34 Pulse Ox 100 03/18/24 13:34 FiO2 Intake & Output 03/18/24 03/18/24 03/19/24 06:59 18:59 06:59 Other: Voiding Method Toilet # Voids 4 3 - Labs CBC & Chem 7: 03/18/24 13:20 03/18/24 04:51 Labs: Abnormal Lab Results - Last 24 Hours (Table) 03/18/24 03/18/24 03/18/24 Range/Units 04:51 04:51 13:20 WBC 10.44 H (4.50-10.00) X 10*3/uL RBC 3.81 L (4.10-5.20) X 10*6/uL Hct 37.0 L (37.2-46.3) % MCV 97.1 H (80.0-97.0) FL MCH 32.8 H (27.0-32.0) pg Plt Count 529 H 584 H (140-440) X 10*3/uL Immature Gran # 0.12 H (0.00-0.04) X 10*3/uL Neutrophils # 7.8 H (1.3-7.7) k/uL BUN <3.5 L (9.0-27.0) mg/dL BUN/Creatinine Ratio <5.00 L (12.00-20.00) Ratio Calcium 8.4 L (8.7-10.3) mg/dL
[2024-03-19 03:46] VITALS: RESP 17
[2024-03-19 09:23] VITALS: BP 146/86; PULSE 58; TEMP 97.9
[2024-03-19 10:36] LABS: Blood Urea Nitrogen 3.6 mg/dL (9.0-27.0); Calcium 8.7 mg/dL (8.7-10.3); Carbon Dioxide 26.6 mmol/L (21.6-31.8); Chloride 103 mmol/L (96-109); Glucose 89 mg/dL (70-110); Potassium 3.8 mmol/L (3.5-5.5); Sodium 140 mmol/L (135-145)
--- NOTE | 2024-03-19 12:53 | P.PN ---
Progress Note - Text Progress Note Date: 03/19/24 NAEO. Tolerating diet. Denies N/V. Having BM VSS General-NAD CVS-RRR Lungs-NLB Abdomen-soft, NTND 48-year-old female with diverticulitis complicated with phlegmon. -will discharge today -needs to follow up outpatient for colonoscopy Cr Lindsay DO [facility]
== END 2024-03-19 13:11 | disposition home or self-care (01) | DRG 392 ==
LOC: EC 14:42 → 1SOBS 15:56 → MERGE 15:56 → 4SSUR 17:11
PROVIDERS: ADMIT Surgery; ATTEND Surgery
DX: K57.20 Diverticulitis of large intestine with perforation and abscess without bleeding (principal); E87.6 Hypokalemia; F17.200 Nicotine dependence, unspecified, uncomplicated; Z79.899 Other long term (current) drug therapy; Z85.41 Personal history of malignant neoplasm of cervix uteri; Z85.42 Personal history of malignant neoplasm of other parts of uterus; Z86.73 Personal history of transient ischemic attack (TIA), and cerebral infarction without residual deficits; Z85.43 Personal history of malignant neoplasm of ovary; Z53.20 Procedure and treatment not carried out because of patient's decision for unspecified reasons
CPT/HCPCS: 74176; 80048; 80053; 81025; 83605; 83735; 85025; 94640; 96361; 96374; 96376; 99285

== ENCOUNTER → 2024-03-26 | Outpatient (CLI) | payer OTHER ==
[2024-03-26 15:40] LABS: African American GFR (CKD) >90 (>60 ml/min/1.73 sqM); Blood Urea Nitrogen 8 mg/dL (7-17); Non-African American GFR(CKD) >90 (>60 ml/min/1.73 sqM)
--- NOTE | 2024-03-26 17:29 | CT ---
EXAMINATION TYPE: CT abdomen pelvis w con DATE OF EXAM: 03/26/2024 COMPARISON: 03/13/2024 INDICATION: Lower abdominal pain x 3 weeks DLP: 814.5 mGycm, Automated exposure control for dose reduction was used. CONTRAST: 100 cc mL of Isovue 300. Study performed with Oral Contrast TECHNIQUE: Axial images were obtained from above the diaphragm to the pubic rami in the axial plane a t 5 mm thick sections. Reconstructed images are reviewed on the computer in the coronal plane. FINDINGS: There is thickened sigmoid colon. Multiple small diverticuli are in this region. Mild adjac ent inflammatory changes are present. The inflammatory changes have improved over the interval. Previous region of phlegmon formation in the right adnexal region appears to have matured into an abs cess. Small amount of free air appears to be within the nondependent portion. This measures 3.2 cm in diameter, series 4 image 70. There is some additional low density just superior to the region of div erticulitis involving the sigmoid colon. This measures 1.6 cm, example image series 4 image 72. Absce ss formation at this location may be developing. There is a 0.8 cm area of low density which appears to be within the upper uterus. This appears to be fluid within the uterus. However, abscess adjacent should be considered. Limited CT sections are obtained the lung bases. The lung bases are clear. CT ABDOMEN: Liver: Normal Spleen: Normal Pancreas: Normal Adrenal glands: The adrenal glands are normal. Gallbladder: Normal Kidneys: No masses are evident. No hydronephrosis is present. No cysts are present. Delayed images were obtained through the kidneys, which remain unremarkable. Aorta: Normal Inferior vena cava: Normal. CT PELVIS: Loops of bowel distended with oral contrast appear normal. There are some loops of bowel lacking oral contrast limiting their evaluation. Oral contrast extends to the descending colon. No contrast is wi thin the region of the suspected diverticulitis. Please see above discussion. Appendix: The proximal appendix appears normal. The tail extends towards the suspected abscess. Dista l appendicitis is not excluded although the acute diverticulitis is favored. Urinary bladder: Normal. Genitourinary structures: Appears to be a small amount of fluid within the endometrial canal of the u terus which is an interval change. Left adnexa appears normal. The suspected abscess appears to resid e within the right adnexal region. Osseous structures: No suspicious lytic or sclerotic lesions. IMPRESSION: 1. Acute diverticulitis appears to have matured with some diminishing inflammatory changes and free fluid. However, there appears to be interval formation of 2 or 3 pockets of possible abscess. Largest in the right adnexal region measures 3.2 cm.
== END | disposition home or self-care (01) ==
LOC: RADCTMAIN 14:51
PROVIDERS: ATTEND Surgery
DX: K57.32 Diverticulitis of large intestine without perforation or abscess without bleeding (principal)
CPT/HCPCS: 36415; 74177; 82565; 84520

== ENCOUNTER 2024-03-27 13:58 | Inpatient (IN) | payer OTHER ==
--- NOTE | 2024-03-27 14:31 | ED ---
Abdominal Pain HPI - General Source: patient, RN notes reviewed Mode of arrival: ambulatory Limitations: no limitations <Sera Gabriel - Last Filed: 03/27/24 14:29> - General Source: patient, RN notes reviewed, old records reviewed <Scottie Moy - Last Filed: 03/27/24 16:31> - General Chief Complaint: Abdominal Pain Stated Complaint: diverticulitus Time Seen by Provider: 03/27/24 14:29 - History of Present Illness Initial Comments: Quick note: 49-year-old female presented to the ER with a chief complaint of abdominal pain. Patient sent by Dr. Anthony for admission. Patient was diagnosed with diverticulitis on 03-08-2024. Patient was admitted due to infection. Patient states outpatient CT yesterday showing cysts or tumors on colon that Dr. Anthony would like to "drain". Patient denies any fevers or chills. Admits to nausea and diarrhea. (Sera Gabriel) Patient originally seen as a quick note. Presents emergency department after being sent by her surgeon, Dr. Anthony for admission to the hospital. Was recently treated for diverticulitis and received outpatient CT scan yesterday which revealed complicated diverticulitis with intra-abdominal abscess. She did have a recent hospital stay for similar complaints. patient currently just complaining of right lower quadrant abdominal pain and right sided pain. Denies any significant nausea or vomiting. Denies any constipation. Endorses diarrhea that which is unchanged since her recent hospital stay. Presents for admission to the hospital. No other acute complaints at this time. (Scottie Moy) - Related Data Home Medications Medication Instructions Recorded Confirmed PARoxetine [Paxil] 10 mg PO HS 03/13/24 03/27/24 Propranolol HCl [Inderal] 60 mg PO BID 03/13/24 03/27/24 HYDROcodone/APAP 7.5-325MG [[place] 1 tab PO Q6H 03/27/24 03/27/24 7.5-325] metroNIDAZOLE [Flagyl] 500 mg PO TID 03/27/24 03/27/24 valACYclovir HCL [Valtrex] 500 mg PO BID 03/27/24 03/27/24 Allergies Allergy/AdvReac Type Severity Reaction Status Date / Time No Known Allergies Allergy Verified 03/27/24 14:12 Review of Systems ROS Other: All systems not noted in ROS Statement are negative. <Sera Gabriel - Last Filed: 03/27/24 14:29> ROS Other: All systems not noted in ROS Statement are negative. <Scottie Moy - Last Filed: 03/27/24 16:31> ROS Statement: Those systems with pertinent positive or pertinent negative responses have been documented in the HPI. Review of Systems: CONST: Denies fever EYES: Denies blurry vision ENT: Denies nasal congestion C/V: Denies Chest pain RESP: Denies shortness of breath GI: Endorses abdominal pain : Denies dysuria SKIN: Denies rash. MSK: Denies joint pain. NEURO: Denies headache (Scottie Moy) Past Medical History Past Medical History: Cancer, Hyperlipidemia Additional Past Medical History / Comment(s): Cervical cancer with surgery, migraines, palpitations, diverticulosis, History of Any Multi-Drug Resistant Organisms: None Reported Past Surgical History: Orthopedic Surgery, Tubal Ligation, Uterine Ablation Additional Past Surgical History / Comment(s): LEEP procedure; ORIF R ankle- hardware removed then post op infection with I&D Past Anesthesia/Blood Transfusion Reactions: No Reported Reaction Past Psychological History: No Psychological Hx Reported Smoking Status: Current some day smoker, Light tobacco smoker Past Alcohol Use History: None Reported Past Drug Use History: Marijuana, None Reported - Past Family History Mother Family Medical History: COPD, Coronary Artery Disease (CAD) Additional Family Medical History / Comment(s): Mother had Grave's disease. She is . Father Family Medical History: Cancer Additional Family Medical History / Comment(s): COLON CANCERDiverticular disease, <Sera Gabriel - Last Filed: 03/27/24 14:29> General Exam Limitations: no limitations <Sera Gabriel - Last Filed: 03/27/24 14:29> <Scottie Moy - Last Filed: 03/27/24 16:31> - General Exam Comments Initial Comments: Visual Physical Exam Vital signs reviewed General: Well-appearing, nontoxic, no acute distress. Head: Normocephalic, atraumatic Eyes: PERRLA, EOMI ENT: Airway patent Chest: Nonlabored breathing Skin: No visual rash, normal skin tone Neuro: Alert and oriented 3 Musculoskeletal: No gross abnormalities (Sera Gabriel) General: Appears in mild distress secondary to abdominal pain. HEAD: Normal with no signs of head trauma. EYES: EOMI ENT: Hearing grossly intact, normal oropharynx. RESPIRATORY: Clear breath sounds bilaterally. No wheezes, rales, or rhonchi. C/V: Regular rate and rhythm. S1 and S2 auscultated, peripheral pulses 2+ and intact throughout ABD: Abdomen is soft, nondistended. Tender palpation in the right lower quadrant and right flank. No guarding. No rebound tenderness. No peritoneal signs. EXT: Normal range of motion, no obvious deformity SKIN: No rashes or lesions observed on exposed skin. NEURO: Alert and oriented x 4. (Scottie Moy) Course Vital Signs 03/27/24 03/27/24 14:10 15:23 Temperature 98.3 F Pulse Rate 79 81 Respiratory 20 18 Rate Blood Pressure 122/85 130/91 O2 Sat by Pulse 99 97 Oximetry Medical Decision Making <Sera Gabriel - Last Filed: 03/27/24 14:29> - Lab Data Result diagrams: 03/27/24 15:08 03/27/24 15:08 <Scottie Moy - Last Filed: 03/27/24 16:31> - Medical Decision Making I performed the quick note portion of this chart. Electronically signed by Sera Gabriel PA-C (Sera Gabriel) Was pt. sent in by a medical professional or institution (RONALD Butt, TACTICAL DEBRIEFER OFFICER, urgent care, hospital, or custodial...) When possible be specific @ -Sent in by her surgeon Dr. Anthony for admission to the hospital for complicated diverticulitis Did you speak to anyone other than the patient for history (EMS, parent, family, police, friend...)? What history was obtained from this source @ -No Did you review nursing and triage notes (agree or disagree)? Why? @ -I reviewed and agree with nursing and triage notes Were old charts reviewed (outside hosp., previous admission, EMS record, old EKG, old radiological studies, urgent care reports/EKG's, custodial records)? Report findings @ -Reviewed CT imaging from 03/26/2024 which revealed intra-abdominal abscess and complicated diverticulitis Differential Diagnosis (chest pain, altered mental status, abdominal pain women, abdominal pain men, vaginal bleeding, weakness, fever, dyspnea, syncope, headache, dizziness, GI bleed, back pain, seizure, CVA, palpatations, mental health, musculoskeletal)? @ -Differential Abdominal Pain Women: Appendicitis, Cholecystitis, diverticulosis, ischemic bowel, pancreatitis, hepatitis, UTI, gastroenteritis, AAA, incarcerated hernia, bowel obstruction, constipation, inflammatory bowel, hepatitis, peptic ulcer disease, splenic infarction, perforated viscus, vulvitis, ovarian torsion, PID, kidney stone, placenta abruption, this is not meant to be an all-inclusive list EKG interpreted by me (3pts min.). @ -None done X-rays interpreted by me (1pt min.). @ -None done CT interpreted by me (1pt min.). @ -None done U/S interpreted by me (1pt. min.). @ -None done What testing was considered but not performed or refused? (CT, X-rays, U/S, lab s)? Why? @ -None What meds were considered but not given or refused? Why? @ -None Did you discuss the management of the patient with other professionals (professionals i.e. , PA, TACTICAL DEBRIEFER OFFICER, lab, RT, psych nurse, social work therapist, seed tester, teacher, veterans service officer, case consultant)? Give summary @ -Discussed with patient's surgeon and admitting physician, Dr. Anthony who accepted the admission. Requested IR and infectious disease consult. Requested n.p.o. after midnight. Was in agreement with plan for Zosyn and IV fluids. Was smoking cessation discussed for >3mins.? @ -No Was critical care preformed (if so, how long)? @ -No Were there social determinants of health that impacted care today? How? (Ho melessness, low income, unemployed, alcoholism, drug addiction, transportation, low edu. Level, literacy, decrease access to med. care, longterm, rehab)? @ -No Was there de-escalation of care discussed even if they declined (Discuss DNR or withdrawal of care, Hospice)? DNR status @ -No What co-morbidities impacted this encounter? (DM, HTN, Smoking, COPD, CAD, Cancer, CVA, ARF, Chemo, Hep., AIDS, mental health diagnosis, sleep apnea, morbid obesity)? @ -None Was patient admitted / discharged? Hospital course, mention meds given and route, prescriptions, significant lab abnormalities, going to OR and other pertinent info. @ -Patient presents for admission for complicated diverticulitis. CT imaging done on outpatient CT reveals intra-abdominal abscess from the diverticulitis. Vitals are within acceptable limits. Laboratory studies obtained as patient is a quick note revealed a slight leukocytosis of 11.6. Lactic acid within normal limits. Patient symptomatically treated with IV fluids, morphine and started on IV Zosyn. CT imaging from yesterday was reviewed. I discussed the case with the admitting physician, Dr. Anthony the patient's surgeon who accepted the admission. Requested IR consult as well as infectious disease consult. Was otherwise in agreement with plan for IV antibiotics. Patient was in agreement this plan. Undiagnosed new problem with uncertain prognosis? @ -No Drug Therapy requiring intensive monitoring for toxicity (Heparin, Nitro, Insulin, Cardizem)? @ -No Were any procedures done? @ -No Diagnosis/symptom? @ -Intra-abdominal abscess, complicated diverticulitis Acute, or Chronic, or Acute on Chronic? @ -Acute Uncomplicated (without systemic symptoms) or Complicated (systemic symptoms)? @ -Complicated Side effects of treatment? @ -No Exacerbation, Progression, or Severe Exacerbation? @ -No Poses a threat to life or bodily function? How? (Chest pain, [place], [place], pneumonia, PE, COPD, DKA, ARF, appy, cholecystitis, CVA, Diverticulitis, Homicidal, Suicidal, threat to staff... and all critical care pts) @ -Yes (Scottie Moy) - Lab Data Lab Results 03/27/24 03/27/24 03/27/24 Range/Units 15:08 15:08 15:08 WBC 11.6 H (3.8-10.6) k/uL RBC 4.39 (3.80-5.40) m/uL Hgb 13.8 (11.4-16.0) gm/dL Hct 43.3 (34.0-46.0) % MCV 98.5 (80.0-100.0) fL MCH 31.5 (25.0-35.0) pg MCHC 32.0 (31.0-37.0) g/dL RDW 12.0 (11.5-15.5) % Plt Count 636 H (150-450) k/uL MPV 7.4 Neutrophils % 78 % Lymphocytes % 14 % Monocytes % 4 % Eosinophils % 2 % Basophils % 1 % Neutrophils # 9.1 H (1.3-7.7) k/uL Lymphocytes # 1.6 (1.0-4.8) k/uL Monocytes # 0.4 (0-1.0) k/uL Eosinophils # 0.2 (0-0.7) k/uL Basophils # 0.1 (0-0.2) k/uL Sodium 137 (137-145) mmol/L Potassium 4.5 (3.5-5.1) mmol/L Chloride 101 (98-107) mmol/L Carbon Dioxide 28 (22-30) mmol/L Anion Gap 8 mmol/L BUN 10 (7-17) mg/dL Creatinine 0.73 (0.52-1.04) mg/dL Est GFR (CKD-EPI)AfAm >90 (>60 ml/min/1.73 sqM) Est GFR (CKD-EPI)NonAf >90 (>60 ml/min/1.73 sqM) Glucose 86 (74-99) mg/dL Plasma Lactic Acid Juan Antonio 1.1 (0.7-2.0) mmol/L Calcium 9.6 (8.4-10.2) mg/dL Total Bilirubin 0.4 (0.2-1.3) mg/dL AST 20 (14-36) U/L ALT 14 (4-34) U/L Alkaline Phosphatase 77 (38-126) U/L Total Protein 7.4 (6.3-8.2) g/dL Albumin 4.2 (3.5-5.0) g/dL Urine Color Urine Appearance (Clear) Urine pH (5.0-8.0) Ur Specific [place] (1.001-1.035) Urine Protein (Negative) Urine Glucose (UA) (Negative) Urine Ketones (Negative) Urine Blood (Negative) Urine Nitrite (Negative) Urine Bilirubin (Negative) Urine Urobilinogen (<2.0) mg/dL Ur Leukocyte Esterase (Negative) 03/27/24 Range/Units 15:15 WBC (3.8-10.6) k/uL RBC (3.80-5.40) m/uL Hgb (11.4-16.0) gm/dL Hct (34.0-46.0) % MCV (80.0-100.0) fL MCH (25.0-35.0) pg MCHC (31.0-37.0) g/dL RDW (11.5-15.5) % Plt Count (150-450) k/uL MPV Neutrophils % % Lymphocytes % % Monocytes % % Eosinophils % % Basophils % % Neutrophils # (1.3-7.7) k/uL Lymphocytes # (1.0-4.8) k/uL Monocytes # (0-1.0) k/uL Eosinophils # (0-0.7) k/uL Basophils # (0-0.2) k/uL Sodium (137-145) mmol/L Potassium (3.5-5.1) mmol/L Chloride (98-107) mmol/L Carbon Dioxide (22-30) mmol/L Anion Gap mmol/L BUN (7-17) mg/dL Creatinine (0.52-1.04) mg/dL Est GFR (CKD-EPI)AfAm (>60 ml/min/1.73 sqM) Est GFR (CKD-EPI)NonAf (>60 ml/min/1.73 sqM) Glucose (74-99) mg/dL Plasma Lactic Acid Juan [place] (0.7-2.0) mmol/L Calcium (8.4-10.2) mg/dL Total Bilirubin (0.2-1.3) mg/dL AST (14-36) U/L ALT (4-34) U/L Alkaline Phosphatase (38-126) U/L Total Protein (6.3-8.2) g/dL Albumin (3.5-5.0) g/dL Urine Color Colorless Urine Appearance Clear (Clear) Urine pH 7.0 (5.0-8.0) Ur Specific [place] 1.009 (1.001-1.035) Urine Protein Negative (Negative) Urine Glucose (UA) Negative (Negative) Urine Ketones Negative (Negative) Urine Blood Negative (Negative) Urine Nitrite Negative (Negative) Urine Bilirubin Negative (Negative) Urine Urobilinogen <2.0 (<2.0) mg/dL Ur Leukocyte Esterase Negative (Negative) Disposition <Sera Gabriel - Last Filed: 03/27/24 14:29> Time of Disposition: 16:20 <Scottie Moy - Last Filed: 03/27/24 16:31> Clinical Impression: Diverticulitis, Intra-abdominal abscess Disposition: ADMITTED IP TO THIS HOSP Condition: Stable Referrals: Maryann Sanchez MD [Primary Care Provider] - 1-2 days
[2024-03-27 15:13] LABS: Basophils # (A) 0.1 k/uL (0-0.2); Basophils % (A) 1 %; Eosinophils # (A) 0.2 k/uL (0-0.7); Eosinophils % (A) 2 %; HCT 43.3 % (34.0-46.0); HGB 13.8 gm/dL (11.4-16.0); Lymphocytes # (A) 1.6 k/uL (1.0-4.8); Lymphocytes % (A) 14 %; MCH 31.5 pg (25.0-35.0); MCV 98.5 fL (80.0-100.0); Mean Platelet Volume 7.4; Monocytes # (A) 0.4 k/uL (0-1.0); Monocytes % (A) 4 %; Neutrophils # (A) 9.1 k/uL (1.3-7.7); Neutrophils % (A) 78 %; Platelet Count 636 k/uL (150-450); RBC 4.39 m/uL (3.80-5.40); WBC 11.6 k/uL (3.8-10.6)
[2024-03-27 15:24] LABS: Appearance,Urine Clear (Clear); Bilirubin,Urine Negative (Negative); Blood,Urine Negative (Negative); Color,Urine Colorless; Glucose,Urine (UA) Negative (Negative); Ketones,Urine Negative (Negative); Leukocyte Esterase,Urine Negative (Negative); Nitrite,Urine Negative (Negative); Protein,Urine Negative (Negative); Specific Gravity,Urine 1.009 (1.001-1.035); Urobilinogen,Urine <2.0 mg/dL (<2.0)
[2024-03-27 15:49] LABS: ALT 14 U/L (4-34); AST 20 U/L (14-36); African American GFR (CKD) >90 (>60 ml/min/1.73 sqM); Albumin 4.2 g/dL (3.5-5.0); Alkaline Phosphatase 77 U/L (38-126); Anion Gap 8 mmol/L; Blood Urea Nitrogen 10 mg/dL (7-17); Calcium 9.6 mg/dL (8.4-10.2); Carbon Dioxide 28 mmol/L (22-30); Chloride 101 mmol/L (98-107); Glucose 86 mg/dL (74-99); Non-African American GFR(CKD) >90 (>60 ml/min/1.73 sqM); Potassium 4.5 mmol/L (3.5-5.1); Sodium 137 mmol/L (137-145); Total Bilirubin 0.4 mg/dL (0.2-1.3); Total Protein 7.4 g/dL (6.3-8.2)
[2024-03-27] MEDS: MORPHINE SULFATE 4 MG/ML SYRINGE IVP STA (15:49)
[2024-03-27] MEDS: SODIUM CHLORIDE 0.9% 1,000 ML IV STA ×2 (15:49)
[2024-03-27] MEDS: PIPERACILLIN-TAZOBACTAM 3.375 GM in SODIUM CHLORIDE 0.9% 100 ML IVPB SCH (16:03)
[2024-03-27] MEDS ORDERED: NALOXONE 0.4 MG/ML 1 ML VIAL IV PRN (16:18)
[2024-03-27] MEDS: MORPHINE SULFATE 4 MG/ML SYRINGE IV PRN (19:36)
[2024-03-27] MEDS: KETOROLAC 15 MG/ML 1 ML VIAL IVP SCH (23:24)
[2024-03-28 07:08] LABS: Basophils # (A) 0.1 k/uL (0-0.2); Basophils % (A) 1 %; Eosinophils # (A) 0.2 k/uL (0-0.7); Eosinophils % (A) 2 %; HCT 41.4 % (34.0-46.0); HGB 13.7 gm/dL (11.4-16.0); Lymphocytes # (A) 1.4 k/uL (1.0-4.8); Lymphocytes % (A) 13 %; MCH 32.6 pg (25.0-35.0); MCHC 33.2 g/dL (31.0-37.0); MCV 98.2 fL (80.0-100.0); Mean Platelet Volume 7.9; Monocytes # (A) 0.5 k/uL (0-1.0); Monocytes % (A) 4 %; Neutrophils # (A) 8.3 k/uL (1.3-7.7); Neutrophils % (A) 78 %; Platelet Count 625 k/uL (150-450); RBC 4.21 m/uL (3.80-5.40); RDW 12.6 % (11.5-15.5); WBC 10.7 k/uL (3.8-10.6)
[2024-03-28 07:30] LABS: ALT 12 U/L (4-34); AST 20 U/L (14-36); African American GFR (CKD) 86 (>60 ml/min/1.73 sqM); Albumin 3.5 g/dL (3.5-5.0); Alkaline Phosphatase 63 U/L (38-126); Anion Gap 5 mmol/L; Blood Urea Nitrogen 8 mg/dL (7-17); Carbon Dioxide 31 mmol/L (22-30); Chloride 104 mmol/L (98-107); Glucose 94 mg/dL (74-99); Non-African American GFR(CKD) 75 (>60 ml/min/1.73 sqM); Potassium 4.7 mmol/L (3.5-5.1); Sodium 140 mmol/L (137-145); Total Bilirubin 0.4 mg/dL (0.2-1.3); Total Protein 6.4 g/dL (6.3-8.2)
[2024-03-28] MEDS: PANTOPRAZOLE 40 MG/10 ML VIAL IV SCH (10:02)
[2024-03-28] MEDS: SODIUM CHLORIDE 0.9% 1,000 ML IV SCH (17:34)
[2024-03-28] MEDS: MIDAZOLAM 2 MG/2 ML VIAL IV ONE (18:50)
[2024-03-28] MEDS: DEXAMETHASONE SOD PHOSPHATE 4 MG/ML 1 ML VIAL IVP STA (19:10)
[2024-03-28] MEDS: ONDANSETRON 4 MG/2 ML VIAL IVP PRN (19:10)
[2024-03-28] MEDS ORDERED: KETOROLAC 15 MG/ML 1 ML VIAL ONE (19:13)
[2024-03-28] MEDS: SODIUM CHLORIDE 0.9% 1,000 ML IV ONE ×3 (19:13→21:14)
[2024-03-28] MEDS ORDERED: LIDOCAINE 1% INJ 10MG/ML (20 ML MDV) ONE (19:13)
[2024-03-28] MEDS ORDERED: MIDAZOLAM 2 MG/2 ML VIAL ONE (19:13)
[2024-03-28] MEDS ORDERED: NEOSTIGMINE 1 MG/ML 10 ML VIAL ONE (19:13)
[2024-03-28] MEDS ORDERED: fentaNYL (PF) 50 MCG/ML 2 ML AMP ONE (19:13)
[2024-03-28] MEDS ORDERED: GLYCOPYRROLATE 0.2 MG/ML 2 ML VIAL ONE (19:13)
[2024-03-28] MEDS ORDERED: ROCURONIUM 10 MG/ML (5 ML VIAL) IV ONE (19:13)
[2024-03-28] MEDS ORDERED: PROPOFOL 10 MG/ML 20 ML VIAL IV ONE (19:13)
[2024-03-28] MEDS ORDERED: HYDROmorphone (PF) 1 MG/ML ONE (19:13)
[2024-03-28] MEDS ORDERED: SUCCINYLCHOLINE CHLORIDE 200 MG/10 ML VIAL IV ONE (19:13)
[2024-03-28] MEDS: LIDOCAINE 1%-EPI 1:100,000 20 ML VIAL SQ ONE ×2 (19:37)
--- NOTE | 2024-03-28 22:31 | P.CONS ---
History of Present Illness - Reason for Consult Consult date: 03/28/24 Intra-abdominal abscess from complicated diverticulitis Requesting physician: Scottie Moy - Chief Complaint Abdominal pain x few days - History of Present Illness Patient is a 49-year-old female with a past medical history significant for cervical cancer migraine headache hyperlipidemia who was recently admitted at this facility and was treated for diverticulitis patient apparently did have some improvement and subsequently discharged home on oral antibiotic discharge instruction mention Cipro and Flagyl however the patient insists she was sent home only on Flagyl patient did have a follow-up visit with the surgeon on Monday and the patient was complaining of more abdominal pain subsequently the patient did have repeat CT abdominal pelvis on 03/26/2024 which shows acute diverticulitis with formation of 2-3 pocket of abscess for the patient has been admitted to the hospital IR was consulted for drainage however they were unable to do it patient has been started on Zosyn infectious disease was consulted for further management of antibiotic therapy patient currently denies having any fever or any chills patient is breathing comfortably no URI symptoms no chest pain shortness of breath or cough patient did have some nausea and vomiting has been complaining abdominal pain mostly on the right side describing it to be sharp almost 10 out of 10 by the time she presented the hospital did have some improvement with the pain medication and no significant radiation no urinary symptoms. Patient on admission to the hospital did have a white count of 11.6 with a left shift creatinine 0.73 urine has been negative urine hCG is negative blood cult ures obtained which are currently pending Review of Systems Positive point and negatives has been mentioned in the HPI, complete review of systems was performed and all other systems are negative Past Medical History Past Medical History: Cancer, Hyperlipidemia Additional Past Medical History / Comment(s): Cervical cancer with surgery, migraines, palpitations, diverticulosis, History of Any Multi-Drug Resistant Organisms: None Reported Past Surgical History: Orthopedic Surgery, Tubal Ligation, Uterine Ablation Additional Past Surgical History / Comment(s): LEEP procedure; ORIF R ankle- hardware removed then post op infection with I&D Past Anesthesia/Blood Transfusion Reactions: No Reported Reaction Past Psychological History: No Psychological Hx Reported Additional Psychological History / Comment(s): Pt resides alone. She is independent. Smoking Status: Current every day smoker Past Alcohol Use History: None Reported Additional Past Alcohol Use History / Comment(s): Pt started smoking in 2005, SMOKES 1 PACK PER WEEK Past Drug Use History: Marijuana, None Reported - Past Family History Mother Family Medical History: COPD, Coronary Artery Disease (CAD) Additional Family Medical History / Comment(s): Mother had Grave's disease. She is . Father Family Medical History: Cancer Additional Family Medical History / Comment(s): COLON CANCERDiverticular disease, Medications and Allergies Home Medications Medication Instructions Recorded Confirmed Type PARoxetine [Paxil] 10 mg PO HS 03/13/24 03/27/24 History Propranolol HCl [Inderal] 60 mg PO BID 03/13/24 03/27/24 History HYDROcodone/APAP 7.5-325MG [[place] 1 tab PO Q6H 03/27/24 03/27/24 History 7.5-325] metroNIDAZOLE [Flagyl] 500 mg PO TID 03/27/24 03/27/24 History valACYclovir HCL [Valtrex] 500 mg PO BID 03/27/24 03/27/24 History Allergies Allergy/AdvReac Type Severity Reaction Status Date / Time No Known Allergies Allergy Verified 03/27/24 14:12 Physical Exam Vitals: Vital Signs Temp Pulse Pulse Resp BP BP Pulse Ox 03/28/24 08:26 97.6 F 62 16 123/68 96 03/28/24 01:35 64 16 110/59 97 03/27/24 20:00 97.9 F 84 18 130/85 97 03/27/24 18:20 78 16 129/88 97 03/27/24 15:23 81 18 130/91 97 03/27/24 14:10 98.3 F 79 20 122/85 99 Intake and Output 03/27/24 03/28/24 03/28/24 22:59 06:59 14:59 Intake Total 500 Balance 500 Intake: Oral 500 Other: # Voids 2 1 Weight 74.843 kg GENERAL DESCRIPTION: Middle-aged female up in bed, no distress. No tachypnea or accessory muscle of respiration use. HEENT: Shows Pallor , no scleral icterus. Oral mucous membrane is dry. No pharyngeal erythema or thrush NECK: Trachea central, no thyromegaly. LUNGS: Unlabored breathing. Clear to auscultation anteriorly. No wheeze or crackle. HEART: S1, S2, regular rate and rhythm. No loud murmur ABDOMEN: Soft, mild tenderness , no guarding or rigidity, no organomegaly EXTREMITIES: No edema of feet. SKIN: No rash, no masses palpable. NEUROLOGICAL: The patient is awake, alert, oriented x3, mood and affect normal. Results CBC & Chem 7: 03/29/24 11:45 03/29/24 11:45 Labs: Abnormal Lab Results - Last 24 Hours (Table) 03/27/24 03/28/24 03/28/24 Range/Units 15:08 06:53 06:53 WBC 11.6 H 10.7 H (3.8-10.6) k/uL Plt Count 636 H 625 H (150-450) k/uL Neutrophils # 9.1 H 8.3 H (1.3-7.7) k/uL Carbon Dioxide 31 H (22-30) mmol/L Assessment and Plan (1) Diverticulitis of large intestine with complication Current Visit: Yes Status: Acute Code(s): K57.32 - DVTRCLI OF LG INT W/O PERFORATION OR ABSCESS W/O BLEEDING SNOMED Code(s): 788569022 (2) Failure of outpatient treatment Current Visit: Yes Status: Acute Code(s): Z78.9 - OTHER SPECIFIED HEALTH STATUS SNOMED Code(s): 266346245 (3) Intra-abdominal abscess Current Visit: Yes Status: Acute Code(s): K65.1 - PERITONEAL ABSCESS SNOMED Code(s): 42444500 Plan: 1patient presented hospital with worsening abdominal pain and did have a recent diagnosis of diverticulitis that was treated medically however the patient seem to have failed outpatient oral antibiotic therapy as there is evidence of peridiverticular abscess unfortunately IR was not able to drain those abscess we will need to cover for the enteric gram-negative both aerobes and anaerobes. 2patient will benefit from laparoscopic washout and culture. 3Zosyn 3.375 g every 8 hour should provide adequate empiric antibiotic coverage. We will follow on clinical condition and cultures to further adjust medication if needed Thank you for this consultation we will follow the patient along with you Dictation was produced using [employer] dictation software. please excuse any grammatical, word or spelling errors. Time with Patient: Greater than 30
--- NOTE | 2024-03-29 00:16 | P.GSCN ---
History of Present Illness History of present illness: Patient is 49 yo female w/ right sided abdominal pain x 2 weeks. Patient was recently hospitalized with diverticulitis and underwent medical management. Patient seen as an outpatient and was found to have an abscess and was sent in for further management. Patient was counseled on the risk and benefits of surgery, patient requested for surgery to be performed. Upon presentation, patient did not have fevers, chills, shortness of breath or chest pain. Review of Systems - Constitutional Reports as per HPI Past Medical History Past Medical History: Cancer, Hyperlipidemia Additional Past Medical History / Comment(s): Cervical cancer with surgery, migraines, palpitations, diverticulosis, History of Any Multi-Drug Resistant Organisms: None Reported Past Surgical History: Orthopedic Surgery, Tubal Ligation, Uterine Ablation Additional Past Surgical History / Comment(s): LEEP procedure; ORIF R ankle- hardware removed then post op infection with I&D Past Anesthesia/Blood Transfusion Reactions: No Reported Reaction Past Psychological History: No Psychological Hx Reported Additional Psychological History / Comment(s): Pt resides alone. She is independent. Smoking Status: Current every day smoker Past Alcohol Use History: None Reported Additional Past Alcohol Use History / Comment(s): Pt started smoking in 2005, SMOKES 1 PACK PER WEEK Past Drug Use History: Marijuana, None Reported - Past Family History Mother Family Medical History: COPD, Coronary Artery Disease (CAD) Additional Family Medical History / Comment(s): Mother had Grave's disease. She is . Father Family Medical History: Cancer Additional Family Medical History / Comment(s): COLON CANCERDiverticular disease, Medications and Allergies Home Medications Medication Instructions Recorded Confirmed Type PARoxetine [Paxil] 10 mg PO HS 03/13/24 03/27/24 History Propranolol HCl [Inderal] 60 mg PO BID 03/13/24 03/27/24 History HYDROcodone/APAP 7.5-325MG [[place] 1 tab PO Q6H 03/27/24 03/27/24 History 7.5-325] metroNIDAZOLE [Flagyl] 500 mg PO TID 03/27/24 03/27/24 History valACYclovir HCL [Valtrex] 500 mg PO BID 03/27/24 03/27/24 History Allergies Allergy/AdvReac Type Severity Reaction Status Date / Time No Known Allergies Allergy Verified 03/27/24 14:12 Surgical - Exam Osteopathic Statement: *. No significant issues noted on an osteopathic structural exam other than those noted in the History and Physical/Consult. Vital Signs Temp Pulse Resp BP Pulse Ox 98.3 F 79 20 122/85 99 03/27/24 14:10 03/27/24 14:10 03/27/24 14:10 03/27/24 14:10 03/27/24 14:10 - General gen: nad cv: rrr pul: non labored breathing abd: soft, tender to palpation in the right lower quadrant, no guarding or rebound tenderness, not peritoneal' Results - Labs 03/28/24 06:53 03/28/24 06:53 Abnormal Lab Results - Last 24 Hours (Table) 03/28/24 03/28/24 Range/Units 06:53 06:53 WBC 10.7 H (3.8-10.6) k/uL Plt Count 625 H (150-450) k/uL Neutrophils # 8.3 H (1.3-7.7) k/uL Carbon Dioxide 31 H (22-30) mmol/L Microbiology - Last 24 Hours (Table) 03/27/24 15:55 Blood Culture - Preliminary Blood Diabetes panel 03/28/24 Range/Units 06:53 Sodium 140 (137-145) mmol/L Potassium 4.7 (3.5-5.1) mmol/L Chloride 104 (98-107) mmol/L Carbon Dioxide 31 H (22-30) mmol/L BUN 8 (7-17) mg/dL Creatinine 0.91 (0.52-1.04) mg/dL Glucose 94 (74-99) mg/dL Calcium 9.0 (8.4-10.2) mg/dL AST 20 (14-36) U/L ALT 12 (4-34) U/L Alkaline Phosphatase 63 (38-126) U/L Total Protein 6.4 (6.3-8.2) g/dL Albumin 3.5 (3.5-5.0) g/dL Calcium panel 03/28/24 Range/Units 06:53 Calcium 9.0 (8.4-10.2) mg/dL Albumin 3.5 (3.5-5.0) g/dL Pituitary panel 03/28/24 Range/Units 06:53 Sodium 140 (137-145) mmol/L Potassium 4.7 (3.5-5.1) mmol/L Chloride 104 (98-107) mmol/L Carbon Dioxide 31 H (22-30) mmol/L BUN 8 (7-17) mg/dL Creatinine 0.91 (0.52-1.04) mg/dL Glucose 94 (74-99) mg/dL Calcium 9.0 (8.4-10.2) mg/dL Adrenal panel 03/28/24 Range/Units 06:53 Sodium 140 (137-145) mmol/L Potassium 4.7 (3.5-5.1) mmol/L Chloride 104 (98-107) mmol/L Carbon Dioxide 31 H (22-30) mmol/L BUN 8 (7-17) mg/dL Creatinine 0.91 (0.52-1.04) mg/dL Glucose 94 (74-99) mg/dL Calcium 9.0 (8.4-10.2) mg/dL Total Bilirubin 0.4 (0.2-1.3) mg/dL AST 20 (14-36) U/L ALT 12 (4-34) U/L Alkaline Phosphatase 63 (38-126) U/L Total Protein 6.4 (6.3-8.2) g/dL Albumin 3.5 (3.5-5.0) g/dL Assessment and Plan Assessment: 49 yo female w/ abdominal pain and intra-abdominal abscess -continue abx -OR this evening Time with Patient: Greater than 30
--- NOTE | 2024-03-29 00:25 | P.OP ---
Date of Procedure: 03/28/24 Preoperative Diagnosis: intra-abdominal abscess Postoperative Diagnosis: intra-abdominal abscess, chronic appendicitis, adhesions Procedure(s) Performed: laparoscopic intra abdominal washout with appendectomy Implants: none Anesthesia: KALYNA Surgeon: Wellington Coffey Pathology: none sent Condition: stable Disposition: PACU Indications for Procedure: intra abdominal abscess Operative Findings: adhesions, abscess, appendicitis Description of Procedure: Patient was brought to the operating room where she was cleaned and draped in sterile fashion. A timeout was performed and everyone agreed with the information recited. An incision was made in the left upper quadrant and a 5mm visiport was used to gained access to the abdomen. Two more working ports were placed in the left mid abdomen and left lower quadrant.We encountered a large amount of adhesions with 30% of the small bowel stuck to the abdominal wall. Once these adhesion were taken down, blunt dissection was used to free up the remaining bowel and break up the loculation of fluid/abscess. I also encountered a hard/dilated/phlegmatous appendix. At this time, I broke scrub to get consent for an appendectomy from [facility]. Once scrubbed, I then turned my attention to the appendix and resected this using a ligasure and one stable load, Hemostatic timeout was performed and no bleeding was observed. We then placed a 19 central african channel drain in the pelvis/right lower quadrant and removed the instruments under direct visualization. The incisions were closed using 4-0 monocryl suture. Patient tolerated the procedure and was then transferred to pacu in stable condition.
[2024-03-29] MEDS: HYDROcodone/APAP 5-325MG 1 EACH TAB PO PRN (08:45)
[2024-03-29 12:06] LABS: Basophils % (A) 0 %; Eosinophils % (A) 0 %; HCT 38.6 % (34.0-46.0); HGB 12.6 gm/dL (11.4-16.0); Lymphocytes # (A) 1.2 k/uL (1.0-4.8); Lymphocytes % (A) 8 %; MCH 32.1 pg (25.0-35.0); MCHC 32.7 g/dL (31.0-37.0); MCV 98.1 fL (80.0-100.0); Mean Platelet Volume 7.4; Monocytes # (A) 0.5 k/uL (0-1.0); Monocytes % (A) 3 %; Neutrophils # (A) 13.9 k/uL (1.3-7.7); Neutrophils % (A) 88 %; Platelet Count 624 k/uL (150-450); RBC 3.93 m/uL (3.80-5.40); WBC 15.9 k/uL (3.8-10.6)
[2024-03-29 12:25] LABS: Sodium 134 mmol/L (137-145)
[2024-03-29 12:26] LABS: African American GFR (CKD) >90 (>60 ml/min/1.73 sqM); Anion Gap 7 mmol/L; Blood Urea Nitrogen 8 mg/dL (7-17); Calcium 9.2 mg/dL (8.4-10.2); Carbon Dioxide 25 mmol/L (22-30); Chloride 102 mmol/L (98-107); Glucose 123 mg/dL (74-99); Non-African American GFR(CKD) >90 (>60 ml/min/1.73 sqM); Potassium 4.5 mmol/L (3.5-5.1)
--- NOTE | 2024-03-29 15:49 | P.PN ---
Subjective patient seen and evaluated bedside. Patient admits to minimal abdominal pain. Denies nausea vomiting and is tolerating a diet. Objective - Vital Signs Vital signs: Vital Signs Temp 98.1 F 03/29/24 07:00 Pulse 59 L 03/29/24 07:00 Resp 16 03/29/24 07:00 BP 126/79 03/29/24 07:00 Pulse Ox 98 03/29/24 07:00 FiO2 Intake & Output 03/28/24 03/29/24 03/29/24 18:59 06:59 18:59 Intake Total 1430 Output Total 1979 1240 Balance -550 -1240 Weight 74.843 kg Intake: IV 1250 Oral 180 Output: Drainage 100 40 Left Lower Abdomen 100 40 Urine 1875 1200 Uretheral (Grande) 1200 Estimated Blood Loss 5 Other: Voiding Method Toilet Indwelling Catheter Indwelling Catheter # Voids 2 1 - Exam gen: nad cv: rrr pul: non labored breathing abd: soft,minimal tender to palpation, no guarding or rebound tenderness, IDA drain in place sourcing was output, surgical incision clean dry and intact - Labs CBC & Chem 7: 03/29/24 11:45 03/29/24 11:45 Labs: Abnormal Lab Results - Last 24 Hours (Table) 03/29/24 03/29/24 Range/Units 11:45 11:45 WBC 15.9 H (3.8-10.6) k/uL Plt Count 624 H (150-450) k/uL Neutrophils # 13.9 H (1.3-7.7) k/uL Sodium 134 L (137-145) mmol/L Glucose 123 H (74-99) mg/dL Microbiology - Last 24 Hours (Table) 03/27/24 15:55 Blood Culture - Preliminary Blood Assessment and Plan Assessment: 49-year-old female status post diagnostic laparoscopy with abdominal washout and appendectomy Await for infectious disease recommendations Continue antibiotics Okay for regular diet Anticipate discharge in next we 24-48 hours Time with Patient: Less than 30
--- NOTE | 2024-03-29 15:59 | P.PN ---
Subjective Progress Note Date: 03/29/24 Principal diagnosis: Reason for follow-up is appendicitis with abscess Patient is a 49-year-old female with a past medical history significant for cervical cancer migraine headache hyperlipidemia who was recently admitted at this facility and was treated for diverticulitis, subsequently readmitted to hospital with the outpatient CT suggestive of abscess patient was taken to the OR and is status post laparoscopic appendectomy and washout. On today's evaluation that is 03/29/2024,the patient remains to be afebrile, patient is on room air not requiring supplemental oxygen and denies any shortness of breath no chest pain or cough.Patient denies having any nausea or vomiting, patient abdominal pain has decreased in intensity. Patient white count is 15.9, creatinine 0.76 blood cultures pending Objective - Vital Signs Vital signs: Vital Signs Temp 98.1 F 03/29/24 07:00 Pulse 59 L 03/29/24 07:00 Resp 16 03/29/24 07:00 BP 126/79 03/29/24 07:00 Pulse Ox 98 03/29/24 07:00 FiO2 Intake & Output 03/28/24 03/29/24 03/29/24 18:59 06:59 18:59 Intake Total 1430 Output Total 1980 1240 Balance -550 -1240 Weight 74.843 kg Intake: IV 1250 Oral 180 Output: Drainage 100 40 Left Lower Abdomen 100 40 Urine 1875 1200 Uretheral (Grande) 1200 Estimated Blood Loss 5 Other: Voiding Method Toilet Indwelling Catheter Indwelling Catheter # Voids 2 1 - Exam GENERAL DESCRIPTION: Middle-age female lying in bed in no distress RESPIRATORY SYSTEM: Unlabored breathing , decreased breath sounds at bases HEART: S1 S2 regular rate and rhythm , ABDOMEN: Soft , no tenderness EXTREMITIES: No edema feet - Labs CBC & Chem 7: 03/29/24 11:45 03/29/24 11:45 Labs: Microbiology - Last 24 Hours (Table) 03/27/24 15:55 Blood Culture - Preliminary Blood Assessment and Plan (1) Failure of outpatient treatment Current Visit: Yes Status: Acute Code(s): Z78.9 - OTHER SPECIFIED HEALTH STA TUS SNOMED Code(s): 848690451 (2) Intra-abdominal abscess Current Visit: Yes Status: Acute Code(s): K65.1 - PERITONEAL ABSCESS SNOMED Code(s): 57113559 (3) Ruptured appendicitis Current Visit: Yes Status: Acute Code(s): K35.32 - AC APPENDICITIS W PERF, LOC PERITONITIS, & GANGR, W/O ABSCS SNOMED Code(s): 06313224 Plan: 1patient presented hospital with worsening abdominal pain and did have a recent diagnosis of diverticulitis that was treated medically however the patient readmitted to the hospital with outpatient CT suggestive of possible peridiverticular abscess the patient is status post laparoscopic appendectomy and drainage of the abscess 2nursing staff to track down in the OR culture hopefully done 3did have slight worsening of the white count possibly reactive postsurgery siddharth l monitor closely continue Zosyn 3.375 g every 8 hour, question concern answered Dictation was produced using [employer] dictation software. please excuse any grammatical, word or spelling errors. Time with Patient: Less than 30
[2024-03-30 13:32] LABS: Basophils # (A) 0.1 k/uL (0-0.2); Basophils % (A) 1 %; Eosinophils # (A) 0.1 k/uL (0-0.7); Eosinophils % (A) 1 %; HCT 36.8 % (34.0-46.0); HGB 12.1 gm/dL (11.4-16.0); Lymphocytes # (A) 2.3 k/uL (1.0-4.8); Lymphocytes % (A) 23 %; MCHC 32.8 g/dL (31.0-37.0); MCV 97.6 fL (80.0-100.0); Mean Platelet Volume 7.5; Monocytes # (A) 0.5 k/uL (0-1.0); Monocytes % (A) 5 %; Neutrophils # (A) 6.6 k/uL (1.3-7.7); Neutrophils % (A) 67 %; Platelet Count 520 k/uL (150-450); RBC 3.77 m/uL (3.80-5.40); RDW 12.1 % (11.5-15.5); WBC 9.8 k/uL (3.8-10.6)
[2024-03-30 14:12] LABS: Sodium 137 mmol/L (137-145)
[2024-03-30 14:13] LABS: African American GFR (CKD) >90 (>60 ml/min/1.73 sqM); Anion Gap 22 mmol/L; Blood Urea Nitrogen 9 mg/dL (7-17); Calcium 8.8 mg/dL (8.4-10.2); Carbon Dioxide 23 mmol/L (22-30); Chloride 92 mmol/L (98-107); Glucose 70 mg/dL (74-99); Non-African American GFR(CKD) >90 (>60 ml/min/1.73 sqM); Potassium 3.7 mmol/L (3.5-5.1)
--- NOTE | 2024-03-30 17:54 | P.PN ---
Progress Note - Text Progress Note Date: 03/30/24 KRISTIANO. Tolerating diet. Having BM's. Patient had some pain when drain was stripped today. General-NAD Abdomen-soft, NTND, IDA-serosang 49-year-old female s/p Diagnostic Laparoscopy with Abdominal Washout for Complicated Diverticulitis and Appendectomy Await for infectious disease recommendations. Currently on Zosyn Regular diet Anticipate discharge tomorrow -Will need colonoscopy in 4-6 weeks Cr Lindsay DO [facility] [phone]
--- NOTE | 2024-03-30 23:00 | P.PN ---
Subjective Progress Note Date: 03/30/24 Principal diagnosis: Reason for follow-up is appendicitis with abscess Patient is a 49-year-old female with a past medical history significant for cervical cancer migraine headache hyperlipidemia who was recently admitted at this facility and was treated for diverticulitis, subsequently readmitted to hospital with the outpatient CT suggestive of abscess patient was taken to the OR and is status post laparoscopic appendectomy and washout. On today's evaluation that is 03/30/2024, the patient continues to be afebrile, the patient is on room air and breathing comfortably, the Pt denies having any chest pain or cough, the patient did have improvement in her abdominal pain no nausea vomiting having a bowel movement patient mention feeling better has been pushing on going home. Patient white count is down to 9.8, creatinine 0.78 Objective - Vital Signs Vital signs: Vital Signs Temp 97.9 F 03/30/24 07:00 Pulse 62 03/30/24 07:00 Resp 14 03/30/24 08:00 BP 127/76 03/30/24 07:00 Pulse Ox 98 03/30/24 07:00 FiO2 Intake & Output 03/29/24 03/30/24 03/30/24 18:59 06:59 18:59 Output Total 1240 90 Balance -1240 -90 Output: Drainage 40 90 Left Lower Abdomen 40 90 Urine 1200 Uretheral (Grande) 1200 Other: Voiding Method Indwelling Catheter Toilet # Voids 4 3 # Bowel Movements 2 - Exam GENERAL DESCRIPTION: Middle-age female lying in bed in no distress RESPIRATORY SYSTEM: Unlabored breathing , decreased breath sounds at bases HEART: S1 S2 regular rate and rhythm , ABDOMEN: Soft , no tenderness EXTREMITIES: No edema feet - Labs CBC & Chem 7: 03/30/24 13:17 03/30/24 13:17 Labs: Abnormal Lab Results - Last 24 Hours (Table) 03/29/24 Range/Units 11:45 Sodium 134 L (137-145) mmol/L Glucose 123 H (74-99) mg/dL Microbiology - Last 24 Hours (Table) 03/27/24 15:55 Blood Culture - Preliminary Blood Assessment and Plan (1) Failure of outpatient treatment Current Visit: Yes Status: Acute Code(s): Z78.9 - OTHER SPECIFIED HEALTH STATUS SNOMED Code(s): 117802870 (2) Intra-abdominal abscess Current Visit: Yes Status: Acute Code(s): K65.1 - PERITONEAL ABSCESS SNOMED Code(s): 42188842 (3) Ruptured appendicitis Current Visit: Yes Status: Acute Code(s): K35.32 - AC APPENDICITIS W PERF, LOC PERITONITIS, & GANGR, W/O ABSCS SNOMED Code(s): 10109076 Plan: 1patient presented hospital with worsening abdominal pain and did have a recent diagnosis of diverticulitis that was treated medically however the patient readmitted to the hospital with outpatient CT suggestive of possible peridiverticular abscess the patient is status post laparoscopic appendectomy and drainage of the abscess 2patient did have improvement in her white count which has normalized patient has been insisting on going home has been advised continue Zosyn 3.375 g every 8 hour for at least another 24 hours however if the patient continue to pressure to go home we will be able to finish therapy with oral Ceftin and Flagyl prescription has been sent to the pharmacy discussed with the nursing staff Dictation was produced using [employer] dictation software. please excuse any grammatical, word or spelling errors. Time with Patient: Less than 30
[2024-03-31 07:52] VITALS: BP 111/73; PULSE 68; RESP 14; TEMP 98.8
--- NOTE | 2024-03-31 09:20 | P.PN ---
Progress Note - Text Progress Note Date: 03/31/24 NAEO. Tolerating diet. Having BM's. Pain is controlled. General-NAD Abdomen-soft, NTND, IDA-serosang 49-year-old female s/p Diagnostic Laparoscopy with Abdominal Washout for Complicated Diverticulitis and Appendectomy Ok for Discharge Regular diet Zosyn -Will need colonoscopy in 4-6 weeks [address] Lindsay [facility] [phone]
[2024-03-31 09:30] LABS: BUN/Creat Ratio 9.44 Ratio (12.00-20.00); Blood Urea Nitrogen 8.5 mg/dL (9.0-27.0); Calcium 8.4 mg/dL (8.7-10.3); Carbon Dioxide 24.7 mmol/L (21.6-31.8); Chloride 100 mmol/L (96-109); Glucose 93 mg/dL (70-110); Potassium 4.3 mmol/L (3.5-5.5); Sodium 136 mmol/L (135-145)
[2024-03-31 09:33] LABS: Basophils # (A) 0.03 X 10*3/uL (0.00-0.10); Basophils % (A) 0.2 %; Eosinophils # (A) 0.16 X 10*3/uL (0.04-0.35); Eosinophils % (A) 0.9 %; HCT 37.6 % (37.2-46.3); HGB 12.8 g/dL (12.0-15.0); Lymphocytes # (A) 1.91 X 10*3/uL (0.90-5.00); Lymphocytes % (A) 10.3 %; MCH 33.1 pg (27.0-32.0); MCV 97.2 FL (80.0-97.0); Mean Platelet Volume 10.4 FL (9.5-12.2); Monocytes # (A) 1.33 X 10*3/uL (0.20-1.00); Monocytes % (A) 7.2 %; NRBC Per 100 WBC 0 X 10*3/uL (0.00-0.01); Neutrophils # (A) 14.96 X 10*3/uL (1.80-7.70); Platelet Count 473 X 10*3/uL (140-440); RBC 3.87 X 10*6/uL (4.10-5.20); RDW 12.3 % (11.5-14.5); WBC 18.47 X 10*3/uL (4.50-10.00)
== END 2024-03-31 10:45 | disposition home or self-care (01) | DRG 398 ==
LOC: EC 13:58 → 1SOBS 16:20 → 6NMEDSUR 03-28 16:53
PROVIDERS: ADMIT Surgery; ATTEND Surgery
PROC: 0DTJ4ZZ Resection of Appendix, Percutaneous Endoscopic Approach (ICD-10-PCS; principal; 2024-03-28 19:02)
PROC: 3E1M38Z Irrigation of Peritoneal Cavity using Irrigating Substance, Percutaneous Approach (ICD-10-PCS; principal; 2024-03-28 19:02)
DX: K35.33 Acute appendicitis with perforation, localized peritonitis, and gangrene, with abscess (principal); K57.20 Diverticulitis of large intestine with perforation and abscess without bleeding; E78.5 Hyperlipidemia, unspecified; F17.210 Nicotine dependence, cigarettes, uncomplicated; Z79.899 Other long term (current) drug therapy; Z82.49 Family history of ischemic heart disease and other diseases of the circulatory system; Z82.5 Family history of asthma and other chronic lower respiratory diseases; Z85.41 Personal history of malignant neoplasm of cervix uteri
CPT/HCPCS: 36415; 80048; 80053; 81003; 81025; 83605; 85025; 87040; 88304; 96361; 96374; 99285

== ENCOUNTER 2024-07-01 09:34 | Day surgery (SDC) | payer OTHER ==
[2024-06-27 13:27] VITALS: BMI 24.3
[2024-07-01] MEDS: IV FLUID CONTINUATION 1,000 ML IV ONE (09:52)
[2024-07-01 10:03] VITALS: TEMP 98
[2024-07-01] MEDS: LACTATED RINGERS 1,000 ML IV SCH (10:09)
[2024-07-01] MEDS ORDERED: PROPOFOL 10 MG/ML 20 ML VIAL IV ONE (10:14)
--- NOTE | 2024-07-01 10:55 | P.PCN ---
Date of Procedure: 07/01/24 Preoperative Diagnosis: History of ruptured appendicitis, diverticulitis and pelvic radiation Postoperative Diagnosis: Diverticulosis Procedure(s) Performed: Colonoscopy Anesthesia: MAC Surgeon: Melo Anthony Pathology: none sent Condition: stable Disposition: same day Indications for Procedure: 49-year-old female with recent history of ruptured appendicitis and history of diverticulitis in the past presents today for colonoscopy. Denies any rectal bleeding. Admits to loose stool. Risks, benefits and alternatives were provided Operative Findings: Diverticulosis Description of Procedure: The patient was brought to the endoscopy suite and placed in left lateral decubitus position and adequate sedation was achieved using conscious sedation. Digital rectal exam was performed and mild internal hemorrhoids were palpated. An endoscope was then placed in the rectum and advanced to the cecum as identified by landmarks including the appendiceal orifice and the ileocecal valve. The prep was good. The colonoscope was then slowly withdrawn, examining for any mucosal abnormalities. The cecum, ascending, transverse, descending and sigmoid colon were visualized adequately. There were no large neoplastic lesions noted throughout the colon. There were no obvious polyps noted throughout the colon. Significant large diverticulosis was noted in the sigmoid colon. Hemostasis was maintained. Retroflexion was performed in the rectum and internal hemorrhoids. Excess air was removed, the colonoscope withdrawn and the procedure terminated. The patient was then transferred to the recovery unit in stable condition. Repeat colonoscopy should be performed in 5 years.
[2024-07-01 11:23] VITALS: BP 118/70; PULSE 88; RESP 17
== END 2024-07-01 11:24 | disposition home or self-care (01) ==
LOC: ORWHC2ENDO 09:34
PROVIDERS: ATTEND Surgery
DX: K57.30 Diverticulosis of large intestine without perforation or abscess without bleeding (principal); Z87.19 Personal history of other diseases of the digestive system; E78.5 Hyperlipidemia, unspecified; Z85.41 Personal history of malignant neoplasm of cervix uteri; Z79.899 Other long term (current) drug therapy; Z98.51 Tubal ligation status; Z98.890 Other specified postprocedural states
CPT/HCPCS: 81025; 45378; J2704

== ENCOUNTER 2024-07-08 04:59 | Emergency (ER) | payer OTHER ==
--- NOTE | 2024-07-08 05:03 | ED ---
Recheck HPI <Jeff Cook - Last Filed: 07/08/24 10:03> - General Source: RN notes reviewed, old records reviewed Limitations: no limitations - History of Present Illness -: days(s) Returns Today for: persistent/worsening pain related to initial visit Symptoms Since Prior Visit: worsening pain Associated Symptoms: nausea, abdominal pain Treatments Prior to Arrival: Given Pain Meds on <Earl Davis - Last Filed: 07/15/24 08:03> - General Stated Complaint: Diverticulitis Flare up Time Seen by Provider: 07/08/24 05:02 - History of Present Illness Initial Comments: This is a 49-year-old female who is known to this ER for recent complaints of abdominal pain. Severe abdominal pain which she does have here in the ER recent surgery recent appendix rupture recent diverticulitis. Patient's pain is severe with nausea no fevers. Patient states the pain has been a little episodic but started worse last night and is much worse this morning (Earl Davis) - Related Data Home Medications Medication Instructions Recorded Confirmed Propranolol HCl [Inderal] 60 mg PO BID 03/13/24 07/01/24 valACYclovir HCL [Valtrex] 500 mg PO BID 03/27/24 07/01/24 PARoxetine [Paxil] 10 mg PO DAILY 06/27/24 07/01/24 Allergies Allergy/AdvReac Type Severity Reaction Status Date / Time No Known Allergies Allergy Verified 07/08/24 05:00 Review of Systems ROS Other: All systems not noted in ROS Statement are negative. <Jeff Cook - Last Filed: 07/08/24 10:03> ROS Other: All systems not noted in ROS Statement are negative. <Earl Davis - Last Filed: 07/15/24 08:03> ROS Statement: Those systems with pertinent positive or pertinent negative responses have been documented in the HPI. Past Medical History Past Medical History: Cancer, Hyperlipidemia Additional Past Medical History / Comment(s): Cervical cancer with surgery, migraines, palpitations, diverticulosis, History of Any Multi-Drug Resistant Organisms: None Reported Past Surgical History: Orthopedic Surgery, Tubal Ligation, Uterine Ablation Additional Past Surgical History / Comment(s): LEEP procedure; ORIF R ankle- hardware removed then post op infection with I&D Past Anesthesia/Blood Transfusion Reactions: No Reported Reaction Past Drug Use History: Marijuana, None Reported - Past Family History Mother Family Medical History: COPD, Coronary Artery Disease (CAD) Additional Family Medical History / Comment(s): Mother had Grave's disease. She is . Father Family Medical History: Cancer Additional Family Medical History / Comment(s): COLON CANCERDiverticular disease, <Earl Davis - Last Filed: 07/15/24 08:03> General Exam General appearance: alert, in no apparent distress Head exam: Present: atraumatic, normocephalic, normal inspection Eye exam: Present: normal appearance, PERRL, EOMI. Absent: scleral icterus, conjunctival injection, periorbital swelling ENT exam: Present: normal exam, mucous membranes moist Neck exam: Present: normal inspection. Absent: tenderness, meningismus, lymphadenopathy Respiratory exam: Present: normal lung sounds bilaterally. Absent: respiratory distress, wheezes, rales, rhonchi, stridor Cardiovascular Exam: Present: regular rate, normal rhythm, normal heart sounds. Absent: systolic murmur, diastolic murmur, rubs, gallop, clicks GI/Abdominal exam: Present: soft, normal bowel sounds. Absent: distended, tenderness, guarding, rebound, rigid Extremities exam: Present: normal inspection, full ROM, normal capillary refill. Absent: tenderness, pedal edema, joint swelling, calf tenderness Back exam: Present: normal inspection Neurological exam: Present: alert, oriented X3, CN II-XII intact Psychiatric exam: Present: normal affect, normal mood Skin exam: Present: warm, dry, intact, normal color. Absent: rash <Earl Davis - Last Filed: 07/15/24 08:03> Course <Earl Davis - Last Filed: 07/15/24 08:03> Vital Signs 07/08/24 07/08/24 07/08/24 05:00 08:21 10:00 Temperature 98.3 F 98.1 F Pulse Rate 83 81 74 Respiratory 18 16 18 Rate Blood Pressure 107/68 103/64 104/56 O2 Sat by Pulse 98 96 100 Oximetry - Reevaluation(s) Reevaluation #1: 07/08/24 06:40 Medical records reviewed (Earl Davis) Reevaluation #2: 07/08/24 06:40 3 patient's pain is difficult to control (Earl Davis) Reevaluation #3: Informed of results questions answered (Earl Davis) Reevaluation #4: Patient symptoms continue to improve here in the ER (Earl Davis) Reevaluation #5: Differential Abdominal Pain Women: Appendicitis, Cholecystitis, diverticulosis, ischemic bowel, pancreatitis, hepatitis, UTI, gastroenteritis, AAA, incarcerated hernia, bowel obstruction, constipation, inflammatory bowel, hepatitis, peptic ulcer disease, splenic infarction, perforated viscus, vulvitis, ovarian torsion, PID, kidney stone, placenta abruption, this is not meant to be an all-inclusive list (Earl Davis) Medical Decision Making - Lab Data Result diagrams: 07/08/24 05:39 07/08/24 05:39 <Jeff Cook - Last Filed: 07/08/24 10:03> - Lab Data Result diagrams: 07/08/24 05:39 07/08/24 05:39 - Radiology Data Radiology results: report reviewed (CT abdomen pelvis negative for acute disease), image reviewed <Earl Davis - Last Filed: 07/15/24 08:03> - Medical Decision Making Was pt. sent in by a medical professional or institution (Dr. PA, IT SALES EXECUTIVE, urgent care, hospital, or usp...) When possible be specific @ -No Did you speak to anyone other than the patient for history (EMS, parent, family, police, friend...)? What history was obtained from this source @ -No Did you review nursing and triage notes (agree or disagree)? Why? @ -I reviewed and agree with nursing and triage notes Were old charts reviewed (outside hosp., previous admission, EMS record, old EKG, old radiological studies, urgent care reports/EKG's, usp records)? Report findings @ -No old charts were reviewed Differential Abdominal Pain Women: Appendicitis, Cholecystitis, diverticulosis, ischemic bowel, pancreatitis, hepatitis, UTI, gastroenteritis, AAA, incarcerated hernia, bowel obstruction, constipation, inflammatory bowel, hepatitis, peptic ulcer disease, splenic infarction, perforated viscus, vulvitis, ovarian torsion, PID, kidney stone, placenta abruption, this is not meant to be an all-inclusive list EKG interpreted by me (3pts min.). @ -As above X-rays interpreted by me (1pt min.). @ -None done CT interpreted by me (1pt min.). @CT of the abdomen pelvis showing 2 intra-abdominal abscesses with mass effect on the right ureter and secondary hydronephrosis with inflammatory change. U/S interpreted by me (1pt. min.). @ -None done What testing was considered but not performed or refused? (CT, X-rays, U/S, labs)? Why? @ -None What meds were considered but not given or refused? Why? @ -None Did you discuss the management of the patient with other professionals (professionals i.e. , PA, IT SALES EXECUTIVE, lab, RT, psych nurse, drug abuse social worker, bus driver, teacher, front desk officer, counter caser)? Give summary @Case discussed with Dr. Anthony who is familiar with this patient, he is able to evaluate the patient in the emergency room and discussed the case with interventional radiology, felt that this patient's previous abdominal history including ovarian cancer s/p radiation requires a higher level of care for both interventional radiology and the possibility of mold polisher/onc evaluation. Patient prefers transfer to [facility]. Discussed with the transfer team, the surgery team and the ER, Dr. Gold, and Dr. Corrigan. Was smoking cessation discussed for >3mins.? @ -No Was critical care preformed (if so, how long)? @ -No Were there social determinants of health that impacted care today? How? (Homelessness, low income, unemployed, alcoholism, drug addiction, transportation, low edu. Level, literacy, decrease access to med. care, retirement, rehab)? @ -No Was there de-escalation of care discussed even if they declined (Discuss DNR or withdrawal of care, Hospice)? DNR status @ -No What co-morbidities impacted this encounter? (DM, HTN, Smoking, COPD, CAD, Cancer, CVA, ARF, Chemo, Hep., AIDS, mental health diagnosis, sleep apnea, morbid obesity)? @ -None Was patient admitted / discharged? Hospital course, mention meds given and route, prescriptions, significant lab abnormalities, going to OR and other pertinent info. @ -49-year-old female with abdominal pain, subjective fever and chills. Patient is 2 months postop appendectomy with perforation and abdominal washout. CT today showing 2 intra-abdominal abscesses. The case is discussed with Dr. Raj macias for general surgery he is familiar with this patient and is able to evaluate the patient emergency department. He feels that the patient would be best served by transfer for higher level of care. He did discuss the CT findings with interventional radiology at this facility and together these 2 services feel that this patient would benefit from transfer. I was able to discuss case with the transfer team at [facility] who will accept. Patient covered with IV antibiotics, IV Zosyn. Blood culture obtained prior to antibiotic administration. Undiagnosed new problem with uncertain prognosis? @ -No Drug Therapy requiring intensive monitoring for toxicity (Heparin, Nitro, Insulin, Cardizem)? @ -No Were any procedures done? @ -No Diagnosis/symptom? @ -Intra-abdominal abscess, history of ovarian cancer, history of perforated appendix Acute, or Chronic, or Acute on Chronic? @ -Acute Uncomplicated (without systemic symptoms) or Complicated (systemic symptoms)? @ -Default Side effects of treatment? @ -No Exacerbation, Progression, or Severe Exacerbation? @ -No Poses a threat to life or bodily function? How? (Chest pain, [place], [place], pneumonia, PE, COPD, DKA, ARF, appy, cholecystitis, CVA, Diverticulitis, Homicidal, Suicidal, threat to staff... and all critical care pts) @ -Yes, sepsis (Jeff Cook) - Lab Data Lab Results 07/08/24 07/08/24 07/08/24 Range/Units 05:39 05:39 05:39 WBC 14.6 H (3.8-10.6) k/uL RBC 4.32 (3.80-5.40) m/uL Hgb 13.6 (11.4-16.0) gm/dL Hct 40.7 (34.0-46.0) % MCV 94.1 (80.0-100.0) fL MCH 31.5 (25.0-35.0) pg MCHC 33.5 (31.0-37.0) g/dL RDW 13.0 (11.5-15.5) % Plt Count 442 (150-450) k/uL MPV 7.5 Neutrophils % 82 % Lymphocytes % 10 % Monocytes % 5 % Eosinophils % 0 % Basophils % 0 % Neutrophils # 12.0 H (1.3-7.7) k/uL Lymphocytes # 1.5 (1.0-4.8) k/uL Monocytes # 0.8 (0-1.0) k/uL Eosinophils # 0.0 (0-0.7) k/uL Basophils # 0.1 (0-0.2) k/uL PT 10.5 (10.0-12.5) sec INR 0.9 (<1.2) APTT 26.6 (22.0-30.0) sec Sodium 136 L (137-145) mmol/L Potassium 4.2 (3.5-5.1) mmol/L Chloride 103 (98-107) mmol/L Carbon Dioxide 25 (22-30) mmol/L Anion Gap 8 mmol/L BUN 10 (7-17) mg/dL Creatinine 0.79 (0.52-1.04) mg/dL Est GFR (CKD-EPI)AfAm >90 (>60 ml/min/1.73 sqM) Est GFR (CKD-EPI)NonAf 90 (>60 ml/min/1.73 sqM) Glucose 99 (74-99) mg/dL Plasma Lactic Acid Juan Antonio (0.7-2.0) mmol/L Calcium 9.2 (8.4-10.2) mg/dL Total Bilirubin 0.4 (0.2-1.3) mg/dL AST 24 (14-36) U/L ALT 27 (4-34) U/L Alkaline Phosphatase 103 (38-126) U/L Total Protein 6.6 (6.3-8.2) g/dL Albumin 3.7 (3.5-5.0) g/dL Amylase 68 (30-110) U/L Lipase 295 (23-300) U/L 07/08/24 Range/Units 05:39 WBC (3.8-10.6) k/uL RBC (3.80-5.40) m/uL Hgb (11.4-16.0) gm/dL Hct (34.0-46.0) % MCV (80.0-100.0) fL MCH (25.0-35.0) pg MCHC (31.0-37.0) g/dL RDW (11.5-15.5) % Plt Count (150-450) k/uL MPV Neutrophils % % Lymphocytes % % Monocytes % % Eosinophils % % Basophils % % Neutrophils # (1.3-7.7) k/uL Lymphocytes # (1.0-4.8) k/uL Monocytes # (0-1.0) k/uL Eosinophils # (0-0.7) k/uL Basophils # (0-0.2) k/uL PT (10.0-12.5) sec INR (<1.2) APTT (22.0-30.0) sec Sodium (137-145) mmol/L Potassium (3.5-5.1) mmol/L Chloride (98-107) mmol/L Carbon Dioxide (22-30) mmol/L Anion Gap mmol/L BUN (7-17) mg/dL Creatinine (0.52-1.04) mg/dL Est GFR (CKD-EPI)AfAm (>60 ml/min/1.73 sqM) Est GFR (CKD-EPI)NonAf (>60 ml/min/1.73 sqM) Glucose (74-99) mg/dL Plasma Lactic Acid Juan Antonio 1.7 (0.7-2.0) mmol/L Calcium (8.4-10.2) mg/dL Total Bilirubin (0.2-1.3) mg/dL AST (14-36) U/L ALT (4-34) U/L Alkaline Phosphatase (38-126) U/L Total Protein (6.3-8.2) g/dL Albumin (3.5-5.0) g/dL Amylase (30-110) U/L Lipase (23-300) U/L Disposition Is patient prescribed a controlled substance at d/c from ED?: No Time of Disposition: 10:07 - Out of Hospital Transfer - Req. Specs Out of Hospital Transfer - Requested Specifics: Other Emergency Center (Transfer to [facility]) <Jeff Cook - Last Filed: 07/08/24 10:03> <Earl Davis - Last Filed: 07/15/24 08:03> Clinical Impression: Intra-abdominal abscess, Ruptured appendicitis Disposition: OTHER INSTITUTION NOT DEFINED Condition: Stable Referrals: Maryann Sanchez MD [Primary Care Provider] - 1-2 days
[2024-07-08] MEDS: HYDROmorphone 1 MG/ML 1 ML SYRINGE IVP STA ×3 (05:40→08:46)
[2024-07-08] MEDS: ONDANSETRON 4 MG/2 ML VIAL IVP STA (05:40)
[2024-07-08] MEDS: SODIUM CHLORIDE 0.9% 1,000 ML IV STA ×2 (05:41→05:42)
[2024-07-08] MEDS: PANTOPRAZOLE 40 MG/10 ML VIAL IVP STA (05:41)
[2024-07-08] MEDS: SODIUM CHLORIDE 0.9% 500 ML 500 ML IV STA (05:48)
[2024-07-08 05:54] LABS: Basophils # (A) 0.1 k/uL (0-0.2); Basophils % (A) 0 %; Eosinophils % (A) 0 %; HCT 40.7 % (34.0-46.0); HGB 13.6 gm/dL (11.4-16.0); Lymphocytes # (A) 1.5 k/uL (1.0-4.8); Lymphocytes % (A) 10 %; MCH 31.5 pg (25.0-35.0); MCHC 33.5 g/dL (31.0-37.0); MCV 94.1 fL (80.0-100.0); Mean Platelet Volume 7.5; Monocytes # (A) 0.8 k/uL (0-1.0); Monocytes % (A) 5 %; Neutrophils % (A) 82 %; Platelet Count 442 k/uL (150-450); RBC 4.32 m/uL (3.80-5.40); WBC 14.6 k/uL (3.8-10.6)
[2024-07-08 06:06] LABS: INR 0.9 (<1.2); Partial Thromboplastin Time 26.6 sec (22.0-30.0); Prothrombin Time 10.5 sec (10.0-12.5)
[2024-07-08] MEDS: diphenhydrAMINE 50 MG/ML 1 ML VIAL IVP STA (06:23)
[2024-07-08 06:27] LABS: ALT 27 U/L (4-34); AST 24 U/L (14-36); African American GFR (CKD) >90 (>60 ml/min/1.73 sqM); Albumin 3.7 g/dL (3.5-5.0); Alkaline Phosphatase 103 U/L (38-126); Amylase 68 U/L (30-110); Anion Gap 8 mmol/L; Blood Urea Nitrogen 10 mg/dL (7-17); Calcium 9.2 mg/dL (8.4-10.2); Carbon Dioxide 25 mmol/L (22-30); Chloride 103 mmol/L (98-107); Glucose 99 mg/dL (74-99); Lipase 295 U/L (23-300); Non-African American GFR(CKD) 90 (>60 ml/min/1.73 sqM); Potassium 4.2 mmol/L (3.5-5.1); Sodium 136 mmol/L (137-145); Total Bilirubin 0.4 mg/dL (0.2-1.3); Total Protein 6.6 g/dL (6.3-8.2)
--- NOTE | 2024-07-08 07:52 | CT ---
EXAMINATION TYPE: CT abdomen pelvis w con DATE OF EXAM: 07/08/2024 6:22 AM COMPARISON: 03/26/2024 CLINICAL INDICATION: Female, 49 years old with history of pain, Patient comes in for headache, fever, lower back pain/abd pain. Had a colonoscopy on Monday with Dr. Jacques. Has not felt right since. H/o c ervical cancer, tubal ligation., TECHNIQUE: Contiguous axial scanning of the abdomen and pelvis following administration of 100 ml of Isovue 300 IV contrast. Delayed images through the kidneys and coronal/sagittal reconstructions perf ormed. CT DLP: 1073.8 mGycm, Automated exposure control for dose reduction was used. FINDINGS: Heart normal size of pericardial effusion. Some minimal strandy atelectasis at lung bases. A tiny 3 mm left basilar pulmonary nodule is unchanged. No pleural effusion. No focal liver lesion or biliary ductal dilatation. Portal venous system is patent. Adrenal glands, left kidney, spleen, and pancreas within normal limits. No dilated small bowel, free fluid, or free air. No increasing mesenteric or retroperitoneal lymphade nopathy. There is moderate right-sided hydronephrosis and right-sided hydroureter. Transition point appears to be in the right upper pelvis at the point of focal inflammation related to acute diverticulitis cent ered at the mid to distal sigmoid colon. There is inflammatory wall thickening and surrounding inflammatory fat stranding. Adjacent extralumin al soft tissue thickening with mottled air and fluid collection is redemonstrated in the midline pelv is and right adnexa measuring 3.0 x 2.9 cm versus 3.2 cm, previously. Also measuring 7.9 x 2.0 cm bob anders 2.8 cm, previously. Uterus anteverted. Bladder is distended. Prominent periuterine varices redemonstrated particularly on the left. Increasing fat stranding within the pelvis. No pelvic lymphadenopathy seen. Bones: Moderate disc disease L2-L3 along with facet arthropathy and grade 1 retrolisthesis here. IMPRESSION : 1. EITHER ONGOING OR RECURRENT ACUTE DIVERTICULITIS ALONG THE MID TO DISTAL SIGMOID COLON WITH MODERA TE TO SEVERE INFLAMMATION. THERE IS PERSISTENT ABSCESS WITHIN THE RIGHT ADNEXA MEASURING 3.0 CM VERSU S 3.2 CM ON 03/26/2024. UNABLE TO EXCLUDE INVOLVEMENT OF THE RIGHT OVARY. ALSO, ENLARGING MIDLINE ABSC ESS JUST ABOVE THE UTERUS MEASURING 7.9 BY 2.0 CM (VERSUS 2.8 CM, PREVIOUSLY). OVERALL INTERVAL WORSE DINAH. 2. THE INFLAMMATION HAS MASS EFFECT ON TO THE DISTAL ASPECT OF THE RIGHT URETER AND CONTRIBUTES TO MO DERATE OBSTRUCTIVE UROPATHY ONTO THE RIGHT KIDNEY. CRITICAL FINDINGS CALLED TO DR. Cook IN THE ER AT 7:49 AM. [facility], , 07/08/2024 7:50 AM
[2024-07-08 08:23] VITALS: TEMP 98.1
[2024-07-08] MEDS: PIPERACILLIN-TAZOBACTAM 3.375 GM in SODIUM CHLORIDE 0.9% 100 ML IVPB STA (08:35)
[2024-07-08 10:08] VITALS: BP 104/56; PULSE 74; RESP 18
[2024-07-08] MEDS: HYDROmorphone 0.5 MG/0.5 ML SYRINGE IVP STA (11:13)
== END 2024-07-08 11:21 | disposition other institution (70) ==
LOC: EC 04:59
DX: K35.33 Acute appendicitis with perforation, localized peritonitis, and gangrene, with abscess (principal)
CPT/HCPCS: 99285; 96365; 96366; 96375; 96376; 36415; 80053; 82150; 83605; 83690; 85025; 85610; 85730; 87040; 74177; 96361; J2543; J1200; J2405; J1171 ×2; Q9967; J2470